=== PATIENT | female | born 1965 | race Caucasian/White ===

== ENCOUNTER 2021-08-29 12:25 | Emergency (ER) | payer MEDICAID, SELFPAY ==
[2021-08-29] VITALS (11 sets, daily range): BP systolic 85–103; BP diastolic 39–78; PULSE 75–101; RESP 6–16; TEMP 36.1; O2SAT 97–100
--- NOTE | ~2021-08-29 | CT_ITS ---
EXAMINATION: CT abdomen pelvis wo con DATE: 08/29/2021 13:55 INDICATION: Ischemic colitis. TECHNIQUE: Computed tomography (CT) of the abdomen and pelvis was performed without intravenous contr ast. Automated exposure control and iterative reconstruction technique were employed. The dose-length product was 589.62 mGy-cm. COMPARISON: CT abdomen and pelvis 01/14/2005 FINDINGS: The visualized portions of the lung bases are clear without pneumonia or pleural effusion. The heart size is normal. No pericardial effusion. There is diffuse hepatic steatosis. There are porter ges of cholecystectomy. The spleen, gallbladder, adrenal glands, and kidneys are normal. There is no urolithiasis. There is diverticulosis of the colon without evidence of diverticulitis. The appendix i s normal. There is a supraumbilical ventral hernia containing fat. There are no pathologically enlarg ed lymph nodes. There is no free intraperitoneal fluid. There is a 13 mm mass of fat in left ovary, c onsistent with a dermoid. There is lumbar levoscoliosis and severe spondylosis. IMPRESSION: 1. No evidence of colitis. 2. Supraumbilical ventral hernia containing fat. 3. 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 Reviewed, dictated and finalized at location A. IRON DIPPER
--- NOTE | 2021-08-29 13:13 | ED.GIBLEED ---
HPI - GI Bleed General Chief complaint: GI Bleed Stated complaint: rectal bleeding, abd pain Time Seen by Provider: 08/29/21 13:13 Source: patient Mode of arrival: ambulatory History of Present Illness HPI Narrative: Patient is 55 years old white female came to the emergency room because of rectal bleeding of the dark red blood over the last 3 days, on average 3 bowel movement a day. Patient also complaining of diffuse abdominal pain, denies any fever, chills, nausea, vomiting. Patient reports a history of rectal bleeding gastritis Crohn's ulcerative colitis. Patient GI doctor and family physician at [facility]. Came to our hospital today for a second opinion. Patient is telling me that at [facility] do not know what i have.. Patient is a smoker, does not have a job, not vaccinated for COVID. Related Data Allergies Allergy/AdvReac Type Severity Reaction Status Date / Time No Known Allergies Allergy Mild Verified 08/29/21 14:18 Review of Systems Review of Systems: CONSTITUTIONAL: Denies fever, chills, or sweats. EYES: Denies visual changes, redness, or discharge. ENT: Denies rhinorrhea, congestion, sore throat, or otalgia. CARDIOVASCULAR: Denies chest pain, palpitations, or edema. RESPIRATORY: Denies cough or dyspnea. GASTROINTESTINAL: Denies abdominal pain, plus rectal bleeding GENITOURINARY: Denies dysuria or hematuria. SKIN: Denies rash or itching. MUSCULOSKELETAL: Denies back pain, joint pain, or myalgia. NEUROLOGIC: Denies headache, numbness, or weakness. PSYCHIATRIC: Denies anxiety or depression. Exam Narrative: General appearance: Well-developed, well-nourished Skin: Normal color Head: Normocephalic, nontraumatic Eyes: Clear conjunctiva ENT: Oropharynx normal, ears normal, nose normal Neck: Supple, nontender Chest and respiratory: Airway patent, no respiratory distress, no accessory muscle use Heart: Regular rate/rhythm Abdomen: Soft, nontender, no organomegaly, quiet bowel sounds, rectal exam showed severe anal tenderness, possible internal hemorrhoids, no blood on the glove, guaiac is negative Vascular: Normal peripheral pulses, normal capillary refill. Musculoskeletal: Normal range of motion, nontender back Neurologic: Alert and oriented ?3, RUG CLEANER HAND is normal as tested, no gross motor deficit Course Vital Signs Vital signs: Vital Signs Temperature 36.1 C L 08/29/21 12:56 Pulse Rate 101 H 08/29/21 12:56 Respiratory Rate 14 08/29/21 12:56 Blood Pressure 92/56 L 08/29/21 12:56 Pulse Oximetry 100 08/29/21 12:56 Temperature 36.1 C L 08/29/21 12:56 Pulse Rate 101 H 08/29/21 12:56 Respiratory Rate 14 08/29/21 12:56 Blood Pressure 92/56 L 08/29/21 12:56 Pulse Oximetry 100 08/29/21 12:56 MDM - GI Bleed MDM Narrative Medical decision making narrative: Work-up and physical examination including rectal exam showed no indication that the patient have GI bleed. Rectal exam is painful, hemorrhoids is my concern with intermittent hemorrhoidal bleed. Patient will be discharged to follow-up with her family physician. Differential Diagnosis Differential diagnosis: Likely hemorrhoids, gastritis, Upper gastrointestinal hemorrhage, Lower gastrointestinal hemorrhage, melena and anal fissure Imaging Data Radiologist's impression: Impressions Abdomen/Pelvis CT 08/29/21 13:57 IMPRESSION: 1. No evidence of colitis. 2. Supraumbilical ventral hernia containing fat. 3. 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 Critical Care Time Critical Care Time Critical Care Time: Yes Total Critical Care Time: 40 Discharge Plan Discharge Clinical Impression: Hemorrhoids Patient Disposition: Home, Self-Care
[2021-08-29] MEDS: SODIUM CHLORIDE 0.9% IV 1,000 ML 999 ML IV CONT (14:10)
[2021-08-29 14:14] LABS: Basophils Percent Auto 0.3 % (0.2-1.2); Eosinophils Absolute Auto 0.1 K/mm3 (0-0.3); Eosinophils Percent Auto 0.7 % (0-4.4); Hematocrit 39.7 % (37.0-47.0); Immature Granulocyte Absolute 0.06 K/mm3 (0.00-0.031); Immature Granulocyte Percent A 0.5 % (0-0.5); Immature Platelet Fraction Pct 14.9 % (0.9-11.2); Lymphocytes Absolute Auto 1.95 K/mm3 (0.9-3.2); Lymphocytes Percent Auto 15.4 % (18.3-44.2); Mean Corpuscular HGB Conc 35.3 g/dl (32-36); Mean Corpuscular Hemoglobin 32.5 pg (26-34); Mean Corpuscular Volume 92.1 fl (80-100); Monocytes Absolute Auto 0.5 K/mm3 (0.1-0.6); Monocytes Percent Auto 4.2 % (2.6-8.5); Neutrophils Percent Auto 78.9 % (45.5-73.1); Platelet Count Result 192 k/mm3 (150-375); Red Blood Count 4.31 M/mm3 (4.2-5.4); White Blood Count 12.7 K/mm3 (4.5-10.0)
== END 2021-08-29 15:22 | disposition home or self-care (01) ==
PROVIDERS: Emergency Provider Emergency Medicine; PCP Internal Medicine
DX: K64.9 Unspecified hemorrhoids (principal)
CPT/HCPCS: 36415; 74176; 85025; 85055; 86850; 86900; 86901; 96360; 99284; J7030

== ENCOUNTER 2025-01-11 16:25 | Emergency (ER) | payer MEDICARE, MEDICAID, SELFPAY ==
--- NOTE | ~2025-01-11 | XR_ITS ---
XR knee RT 3V Ordering provider: Mercedes Chery MD History: . PAIN EDEMA . Comparison: None. FINDINGS: BONES: No acute fracture or dislocation. JOINT SPACES: Normal. Marginal osteophytes in the knee and patella. SOFT TISSUES: Fluid in the suprapatellar bursa with ossification of the quadriceps tendon. IMPRESSION: No acute osseous abnormality right knee. Mild osteoarthritic changes. Reviewed, dictated and finalized at location A.
[2025-01-11 16:25] VITALS: BP 105/73; PULSE 75; RESP 19; TEMP 36.7; O2SAT 98
[2025-01-11] MEDS: HYDROcodone/acetaminophen (*CRX) 5-325 MG TABLET 1 TAB PO (17:15)
--- OUTSIDE RECORDS SUMMARY | 2025-01-11 17:15 | XMS_ITS | Encounter Summary ---
Author Organization [facility] General Sentiment [facility] Ecast [facility] Address [address] [address] Phone Care Team Providers Care Gyroscopic Instrument Tester Name Role Phone Sekou Sheffield MD Primary Care Provider [phone] Encounter Details Date Type Department Care Team (Late st Contact Info) Description 01/10/2025 Orders Only [place] [email or web address] [place] [facility] [address] [facility] [address] [place] [address] Amelia Velazquez [phone] [facility] [address] [place] [address] Essential hypertension (Primary Dx) Social History Tobacco Use Types Packs/Day Years Used Date Smoking Tobacco: Never Assessed Comments Unknown Sex and Gender Information Value Date Recorded Sex Assigned at Not on file Legal Sex Female 4:03 PM EST Gender Identity Not on file Sexual Orientation Not on file documented as of this encounter Plan of Treatment Upcoming Encounters Date Type Department Care Team (Late st Contact Info) Description 02/13/2025 1:00 PM CDT Office Visit [place] [email or web address] [place] [facility] [address] [facility] [address] [place] [phone] Kwesi Whiting DO [address] [facility] 1 [place] [address] Scheduled Orders Name Type Priority Associated Diagnoses Orde r Schedule [facility] Procedures Routine Essential hypertension Expected: 01/10/2025 (Approximate), Expires: 01/10/2026 documented as of this encounter Visit Diagnoses Diagnosis Essential hypertension- Primary documented in this encounter Care Teams Gyroscopic Instrument Tester Relationship Specialty Start Date End Date Sekou Sheffield MD [address] [facility], [address] [place] [address] PCP - General Internal Medicine 07/06/22 documented as of this encounter
--- OUTSIDE RECORDS SUMMARY | 2025-01-11 17:15 | XMS_ITS | Clinical Summary ---
Author Organization [facility] Facility Address [address] [place] [address] Care Team Providers Care Wire Wrapping Machine Operator Name Role Phone Sekou Sheffield MD Primary Care Provider [phone] Medications Semaglutide, 2 MG/DOSE, (Ozempic, 2 MG/DOSE,) 8 MG/3ML solution pen-injector Inject 2 mg under the skin per week 12 mL 1 12/21/2023 Active sertraline (ZOLOFT) 50 MG tablet Take 1 tablet by mouth once daily 90 tablet 01/25/2024 Active potassium chloride (KLOR-CON M20) 20 MEQ CR tablet Take 1 tablet (20 mEq total) by mouth 1 (one) time each day 90 tablet 1 02/22/2024 Active SITagliptin (JANUVIA) 100 MG tablet Take 1 tablet (100 mg total) by mouth 1 (one) time each day in the morning 90 tablet 1 11/07/2024 Active ergocalciferol 1.25 MG (95894 UT) capsule Take 1 capsule (50,000 Units total) by mouth 1 (one) time per week 12 capsule 1 11/07/2024 Active Insulin Glargine, 2 Unit Dial, (Toujeo Max SoloStar) 300 UNIT/ML solution pen-injector Inject 20 Units under the skin every night 3 mL 3 12/11/2024 Active Active Problems Problem Noted Date Diagnosed Date Essential hypertension 01/10/2025 Encounters Date Type Department Care Team Description 01/10/2025 Orders Only [facility], [address] [address] Amelia Velazquez Essential hypertension (Primary Dx) 01/09/2025 Documentation Only [facility] [address] [phone] Kwesi Whiting, DO 12/13/2024 Documentation Only [address] [address] Kwesi Whiting, DO 12/11/2024 Refill [facility], [address] [address] Cleo Figueredo [facility] 11/07/2024 1:30 PM CDT Office Visit [facility] [address] [phone] Kwesi Whiting, DO Chronic kidney disease, stage 4 (severe) (HCC) (Primary Dx); Persistent proteinuria; Proximal renal tubular acidosis; Ischemic cardiomyopathy; Coronary artery disease due to calcified coronary lesion; Simple chronic bronchitis (HCC); Type 2 diabetes mellitus with diabetic chronic kidney disease (HCC); Pure hypercholesterolemia , not otherwise specified; Tobacco use 11/07/2024 Refill [facility], [facility] [address] [phone] Cleo Figueredo [facility] 11/03/2024 Orders Only [address] [address] Kwesi Whiting, DO 10/24/[address] [phone] Kwesi Whiting, DO 10/16/[address] [address] Cleo Figueredo [facility] from Last 3 Months Social History Tobacco Use Types Packs/Day Years Used Date Smoking Tobacco: Never Assessed Comments Unknown Sex and Gender Information Value Date Recorded Sex Assigned at Not on file Legal Sex Female 4:03 PM EST Gender Identity Not on file Sexual Orientation Not on file Last Filed Vital Signs Vital Sign Reading Time Taken Comments Blood Pressure 140/80 11/07/2024 1:59 PM CDT Pulse 68 11/07/2024 1:59 PM CDT Temperature 36.1 C (97 F) 11/07/2024 1:59 PM CDT Respiratory Rate 18 11/07/2024 1:59 PM CDT Oxygen Saturation 97% 11/07/2024 1:59 PM CDT Inhaled Oxygen Concentration - - Weight 83.9 kg (185 lb) 11/07/2024 1:59 PM CDT Height 160 cm (5' 3 ) 12/08/2022 12:10 PM CDT Body Mass Index 32.77 12/08/2022 12:10 PM CDT Plan of Treatment Upcoming Encounters Date Type Department Care Team (Late st Contact Info) Description 02/13/2025 1:00 PM CDT Office Visit [facility], [facility] [address] [facility] [address] [place] [address] Kwesi Whiting DO [address] [facility] 1 [place] [address] Health Maintenance Due Date Last Done Comments Breast Cancer Screening 1966 Hepatitis B Vaccine (1 of 3 - 19+ 3-dose series) 1985 Colorectal Cancer Screening: Annual FOBT 2015 Colorectal Cancer Screening: Colonoscopy 2015 Colorectal Cancer Screening: Sigmoidoscopy 2015 Pneumococcal Vaccine: 50+ Ye ars (2 of 2 - PCV) 07/01/2017 07/01/2016 Diabetes: Ophthalmology Exam 07/30/2022 Diabetes: Pedal Pulse Checked 07/30/2022 Diabetes: Sensory Foot Exam 07/30/2022 Diabetes: Visual Foot Exam 07/30/2022 Diabetes: Hemoglobin A1C 02/03/2025 11/03/2024, 0301/2024 Influenza Vaccine (Season Ended) 2025 06/10/2023, 07/02/2022, 07/18/2021, Additional history exists Pneumococcal Vaccine: Peds ( 0 to 5 Years) and At-Risk Patients (6 to 49 Years) Discontinued 07/01/2016 Procedures Procedure Name Priority Date/Time Associated Diagnosis Comments MAGNESIUM Routine 11/03/2024 1:27 PM FAGOTING MACHINE OPERATOR VITAMIN D 25 HYDROXY Routine 11/03/2024 1:27 PM FAGOTING MACHINE OPERATOR HEMOGLOBIN A1C Routine 11/03/2024 1:27 PM FAGOTING MACHINE OPERATOR CYSTATIN C WITH EGFR Routine 11/03/2024 1:27 PM FAGOTING MACHINE OPERATOR URINE ALBUMIN / CREATININE RATIO Routine 11/03/2024 1:27 PM FAGOTING MACHINE OPERATOR PROTEIN / CREATININE RATIO, URINE Routine 11/03/2024 1:27 PM FAGOTING MACHINE OPERATOR RENAL FUNCTION PANEL Routine 11/03/2024 1:27 PM FAGOTING MACHINE OPERATOR CBC DIFF AMBIGUOUS DEFAULT - DO NOT USE Routine 11/03/2024 1:27 PM FAGOTING MACHINE OPERATOR from Last 3 Months Results * (ABNORMAL) Cystatin C w/GFR (11/03/2024 1:27 PM FAGOTING MACHINE OPERATOR) Cystatin C 2.27(H) 0.67 - 1.14 mg/L [facility] eGFR by Cystatin C 25(L) >59 mL/min/1.7 3 [facility] 11/03/2024 1:27 PM FAGOTING MACHINE OPERATOR 11/02/2024 11:00 PM FAGOTING MACHINE OPERATOR us Kwesi Whiting DO LAB BLOOD ORDERABLES Final R esult [facility] [address] [place] [address] * CBC Diff Ambiguous Default (11/03/2024 1:27 PM FAGOTING MACHINE OPERATOR) WBC 6.9 3.4 - 10.8 x10E3/uL [facility] RBC 4.84 3.77 - 5.28 x10E6/uL [facility] Hemoglobin 14.9 11.1 - 15.9 g/dL [facility] Hematocrit 44.7 34.0 - 46.6 % [facility] MCV 92 79 - 97 fL [facility] MCH 30.8 26.6 - 33.0 pg [facility] MCHC 33.3 31.5 - 35.7 g/dL [facility] RDW 14.2 11.7 - 15.4 % [facility] Platelets 242 150 - 450 x10E3/uL [facility] Neutrophils Relative 68 Not Estab. % [facility] Lymphocytes Relative 22 Not Estab. % [facility] Monocytes 5 Not Estab. % [facility] Eosinophils Relative 4 Not Estab. % [facility] Basophils Relative 1 Not Estab. % [facility] Neutrophils Absolute 4.7 1.4 - 7.0 x10E3/uL [facility] Lymphocytes Absolute 1.5 0.7 - 3.1 x10E3/uL [facility] Monocytes Absolute 0.3 0.1 - 0.9 x10E3/uL [facility] Eosinophils Absolute 0.3 0.0 - 0.4 x10E3/uL [facility] Basophils Absolute 0.1 0.0 - 0.2 x10E3/uL [facility] Immature Granulocytes 0 Not Estab. % [facility] Immature Grans (Absolute) 0.0 0.0 - 0.1 x10E3/uL [facility] Comment: A hand-written panel/profile was received from your office. In accordance with the [facility] Ambiguous Test Code Policy dated February 2003, we have assigned CBC with Differential/Platelet, Test Code #709584 to this request. If this is not the testing you wished to receive on this specimen, please contact the [facility] Technical Services Department to clarify the test order. We appreciate your business. 11/03/2024 1:27 PM FAGOTING MACHINE OPERATOR 11/02/2024 11:00 PM FAGOTING MACHINE OPERATOR Kwesi Whiting DO LAB BLOOD ORDERABLES Final R esult Performing Organization Address [facility] Co de Phone Number [facility] [address] [place] [address] * Protein, Total, Random Urine w/Creatinine (Protein/Creat Ratio) (11/03/2024 1:27 PM FAGOTING MACHINE OPERATOR) Creatinine, Ur 47.3 Not Estab. mg/dL [facility] Protein, Ur 7.2 Not Estab. mg/dL [facility] Urine Protein/Creatin ine Ratio 152 0 - 200 mg/g creat [facility] 11/03/2024 1:27 PM FAGOTING MACHINE OPERATOR 11/02/2024 11:00 PM FAGOTING MACHINE OPERATOR Kwesi Whiting DO LAB URINE ORDERABLES Final R esult Performing Organization Address [facility] Co de Phone Number [facility] [address] [place] [address] * Urine Albumin / Creatinine Ratio (11/03/2024 1:27 PM FAGOTING MACHINE OPERATOR) Albumin, Urine 5.8 Not Estab. ug/mL [facility] Albumin/Creatin ine Ratio 12 0 - 29 mg/g creat [facility] Comment: Normal: 0 - 29 Moderately increased: 30 - 300 Severely increased: >300 11/03/2024 1:27 PM FAGOTING MACHINE OPERATOR 11/02/2024 11:00 PM FAGOTING MACHINE OPERATOR Kwesi Whiting DO LAB URINE ORDERABLES Final R esult Performing Organization Address City/[facility]/ZIP Co de Phone Number [facility] [address] [place] [address] * (ABNORMAL) Vitamin D 25 Hydroxy (11/03/2024 1:27 PM FAGOTING MACHINE OPERATOR) Vitamin D, 25-OH, Total 26.5(L) 30.0 - 100.0 ng/mL [facility] Comment: Vitamin D deficiency has been defined by the [place] of [employer] and an Endocrine Society practice guideline as a level of serum 25-OH vitamin D less than 20 ng/mL (1,2). The Endocrine Society went on to further define vitamin D insufficiency as a level between 21 and 29 ng/mL (2). 1. IOM ([place] of [employer]). 2010. Dietary reference intakes for calcium and D. [place]: The National Academies Press. 2. Josep MF, Mary NC, Power HERNANDEZ, et al. Evaluation, treatment, and prevention of vitamin D deficiency: an Endocrine Society clinical practice guideline. JCEM. 2010; 96(7):1911-30. 11/03/2024 1:27 PM FAGOTING MACHINE OPERATOR 11/02/2024 11:00 PM FAGOTING MACHINE OPERATOR Kwesi Whiting DO LAB BLOOD ORDERABLES Final R esult [facility] [address] [place] [address] * (ABNORMAL) Magnesium (11/03/2024 1:27 PM FAGOTING MACHINE OPERATOR) Magnesium 2.4(H) 1.6 - 2.3 mg/dL [facility] 11/03/2024 1:27 PM FAGOTING MACHINE OPERATOR 11/02/2024 11:00 PM FAGOTING MACHINE OPERATOR Kwesi Whiting DO LAB BLOOD ORDERABLES Final R [facility] Performing Organization Address City/[facility] de Phone Number [facility] [address] [place] [address] * (ABNORMAL) Hemoglobin A1c (11/03/2024 1:27 PM FAGOTING MACHINE OPERATOR) Hemoglobin A1C 8.3(H) 4.8 - 5.6 % [facility] Comment: Prediabetes: 5.7 - 6.4 Diabetes: >6.4 Glycemic control for adults with diabetes: <7.0 11/03/2024 1:27 PM FAGOTING MACHINE OPERATOR 11/02/2024 11:00 PM FAGOTING MACHINE OPERATOR Kwesi Whiting DO LAB BLOOD ORDERABLES Final R esult Performing Organization Address [facility] de Phone Number [facility] [address] [place] [address] * (ABNORMAL) Renal Function Panel (11/03/2024 1:27 PM FAGOTING MACHINE OPERATOR) Glucose 174(H) 70 - 99 mg/dL [facility] BUN 15 6 - 24 mg/dL [facility] Creatinine 1.63(H) 0.57 - 1.00 mg/dL [facility] eGFR CKD-EPI CR 2020 36(L) >59 mL/min/1.7 3 [facility] BUN/Creatinine Ratio 9 9 - 23 [facility] Sodium 139 134 - 144 mmol/L [facility] Potassium 3.8 3.5 - 5.2 mmol/L [facility] Chloride 101 96 - 106 mmol/L [facility] Bicarbonate (CO2) 23 20 - 29 mmol/L [facility] Calcium 9.4 8.7 - 10.2 mg/dL [facility] Phosphorus 3.4 3.0 - 4.3 mg/dL [facility] Albumin 3.9 3.8 - 4.9 g/dL [facility] 11/03/2024 1:27 PM FAGOTING MACHINE OPERATOR 11/02/2024 11:00 PM FAGOTING MACHINE OPERATOR us Kwesi Whiting DO LAB BLOOD ORDERABLES Final R esult [facility] [address] [place] [address] from Last 3 Months Insurance UHC Medicare Medicaid [place] Care Teams Wire Wrapping Machine Operator Relationship Specialty Start Date End Date BahSekou perkins MD [address] [facility], [address] [place] [address] PCP - General Internal Medicine 07/06/22
--- OUTSIDE RECORDS SUMMARY | 2025-01-11 17:16 | XMS_ITS | Data Portability ---
Author Organization [place] [facility] [employer], Main Office Address [address] [place] [address] Care Team Providers Care Clerk Cashier Name Role Phone SEKOU SHEFFIELD Primary Care Provider [phone] SEKOU SHEFFIELD Referring Provider KATHY ATKINS Tree Surgeon MALISSA GALLO Welt Beater BRENNA DORANTES Tow Operator ISAIAH MADDOX Order Processing Clerk KISHA COHN Inspector Of Dredging GALILEO CHEEMA Construction Project Administrator Assessment Encounter Date Assessment Date Assessment LastModified by Organization Details LastModified Time 08/03/2024 08/03/2024 01/11/2023: Gluc 48, BUN 24, Cr 1.67, GFR 32, ALP 134 06/10/2023: A1C 8.5H BUN/Cr./GFR 23/1.73/30, ALP 153 LDL 100 12/16/2023: A1C 8.6H Gluc 193, Cr 1.64, ALP 152 02/17/2024: Dr Gallo Cr 1.64H, GFR 32, Gluc 137 H/H 13.6/41.3 A1C 7.4 03/29/2024: A1C 7.3 Gluc 113, BUN 16/Cr 1.69, GFR 31, ALP 136 LDL 89 45 minutes spent with the patient, lab orders provided, chart updated [email or web address] Not available 08/03/2024 11:24:05 09/14/2024 09/14/2024 This note is dictated and transcribed by [employer]. Transmission Repairer variances may occur. Despite proofreading, typographical errors may occur. Occasional wrong-word or 'lrwab-a-nkex' substitutions may have occurred due to the inherent limitations of voice recording. Read the chart carefully and recognize, using context, where substitutions have occurred. Not available 09/14/2024 09:51:12 09/28/2024 09/28/2024 Assessment: Rhinitis Nicotine smoke: 08/31 ppd 1981-present = 21 pack years Mild ACO Persistent early REM onset Mild OSAHS, AHI = 5 Plan: The following were reviewed and explained to the patient: PFT 01/18/19 FEV1 1.97 L (79%), BD 240 mL = 13% PFT 08/19/22 FEV1 2.06 L (84%) PFT 04/10/24 FEV1 1.79 L (75%), BD 80 mL = 5% Lab data 07/09/[address] multiple [address] allergies Chest CT 07/14/22 20 mm RLL GGO Chest CT 01/11/23 diminished RLL density Chest CT 03/08/24 no abnormality [facility] diagnostic sleep study 01/04/23 sleep onset = 15 minutes, REM onset = 45.5 minutes, AHI = 5, supine AHI = 10, REM AHI = 12 [facility] titration sleep study 02/23/23 sleep onset = 10 minutes, REM onset = 86.5 minutes, ResMed medium AirFit F30 full face mask @ 7 cmH2O Nicotine cessation counseling provided. [place] for quitting include getting ready, getting support and encouragement, learning new skills and behaviors and being prepared to handle slips. Tips for dealing with cravings provided. Prevention of subsequent illnesses from nicotine addiction discussed. Comorbidities include but are not limited to hypertension, cerebrovascular disease, coronary heart disease, congestive heart failure, hyperlipidemia, COPD/asthma, peptic ulcer disease, esophagitis/gastri tis, and osteoporosis. Therapy options offered include: Quitting by total abstinence Receiving nicotine replacement therapy Undergoing hypnosis Filling a bupropion or varenicline prescription Enrolling in Quit For Life program Registering at [email or web address] Making a call to 2-257-YGCA-NOW ( ). A strong, clear, personalized message was given to the patient to quit smoking. The patient was urged to set a quit date. We discussed patient's barriers to quitting and I will be of assistance when patient is ready to quit. I encouraged patient to inform friends and family of plans to quit with a request for support. I encouraged the patient to remove all cigarettes from the environment. We reviewed any previous quit attempts and lessons learned from them. I encouraged total abstinence from smoking and advised the patient that drinking alcohol and/or associating with other smokers are associated with failure or relapse. Patient can enroll in [facility]'s smoking cessation class through Lakesha Lenz RN at . Enrollment is free and classes are held every wednesday of the month from 1:30 pm to 2:30 pm at the conference room next to the cafeteria on the ground floor. The [place] Preventive Services Task Force (USPSTF) recommends annual screening for lung cancer with low-dose computed tomography (LDCT) for adults aged 50 to 80 years who have a 20 pack-year smoking history and currently smoke or have quit within the past 15 years. The [place] [employer] (ACS) similarly recommends screening for individuals aged 50 to 80 years with a 20 pack-year history of smoking. Chest CT one week before return. General information on bronchial asthma was covered. Patient will monitor peak flow daily at a set time and again when symptoms of chest tightness, cough, dyspnea or wheezing occur. Patient will bring peak flow record to subsequent visits. The color of a traffic light will guide the patient's use of asthma medications: (1) Green means Go Zone. Peak flow: above 80% of personal best. Symptoms: Breathing is good, no cough or wheeze present, patient sleeps through the night and can work and play. Plan: Patient will continue the use of preventative medicine. (2) Yellow means Caution Zone. Peak flow: between 50-80% of personal best. Symptoms: Presence of first signs of a cold, exposure to known trigger, mild wheeze, tight chest and coughing especially night. Plan: Patient will add quick-relief medicine to preventative medicine. (3) Red means Danger Zone. Peak flow: below 50% of personal best. Symptoms: Asthma is getting worse quickly and medicine is not helping, breathing is hard and fast, nose opens widely when breathing, ribs showing when breathing, and patient cannot speak in full sentences. Plan: Patient will get help from a physician immediately. Symbicort 160/4.5 mcg is no longer formulary. Continue Breo Ellipta 100/25 mcg 1 inhalation daily. Gargle after use. Continue albuterol HFA as needed. The patient does not know how to accurately administer the inhalers. Today, the patient was shown how to take these medications. The proper technique for delivering these medications was instructed. The patient expressed a clear understanding and demonstrated back how to use these medications. Without the proper technique, the patient will not reap the benefits of these medications as the contents will not reach the lower airways as intended to be. Adherence to therapy is advocated. Nonadherence may lead to treatment failure, further progression of the condition, and other complications. Hospitals admissions are often the result of individuals not taking prescription medications accurately. Alternatively, greater adherence to medication regimens have shown to lower rates of hospitalization and decrease total medical costs in patients with chronic medical conditions. PAP compliance downloaded and interpreted x 20 minutes. Data reviewed and explained to the patient. Average apnea/hypopnea index (AHI) is 0.4. Patient used PAP > 4 hours 89% of the time. PAP is set at 7 cmH2O. PAP will remain at 7 cmH2O. Keep ramp start at 4 cmH2O. Keep ramp duration at 15 minutes. Keep EPR +1 multimedia developer. Keep humidifier level at 4. Keep tube temperature at 70 F. Oxygen supplementation: Patient is benefiting from PAP therapy. Encouraged patient to maintain PAP use more than 70% of the time. Statement of PAP use and benefits will be sent to the home care store. Educated the patient on problems and solutions associated with positive airway pressure (PAP) use. Difficulty tolerating pressure, mask leaks, intolerance of interface, nasal congestion, claustrophobic response, dry mouth, and unintentional mask removal during sleep were covered. Patient experiences nasal congestion. Patient will use nasal saline spray before starting PAP, use heated PAP humidifier, clean/air dry humidifier reservoir daily, use nasal steroid spray, use ipratropium bromide nasal spray if rhinitis/rhinorrhe a is present or obtain an oronasal/oral interface. Provided the patient with a list of local home care stores where positive airway pressure (PAP) units, accoutrement, and services are available. Home care store selection is based on patient's insurance carrier. Patient will setup an appointment with [facility] for supplies and pressure adjustments. A major predictor of success with use of PAP is follow-up with both the respiratory supplier and the treating physician. The download results can show the treating physician information about adherence to treatment, residual AHI while on treatment and presence of large mask leakage. This information is especially helpful if the patient has residual sleepiness despite treatment. General information on sleep disordered breathing, evaluation of sleep disordered breathing, treatment with PAP therapy, and living with PAP therapy were covered. We discussed with the patient the impact of weight on: Sleep disordered breathing Hyperlipidemia DM CAD MIRA CKD Gout We discussed with the patient the benefit of PAP therapy on: Sleep disordered breathing Depression Rhinitis DM MIRA Educated the patient on sleep hygiene measures. Relaxing rituals to rest easy, understanding foods with positive and negative impact on sleep, creating a peaceful sleep environment, timing of exercise, using herbal sleep aids, and practicing sleep-friendly meditation were covered. To determine how much sleep is needed, the patient will assess where she falls on the spectrum, examine what lifestyle factors such as work schedules and stress are affecting the quality and quantity of sleep. In general, adults need 7-9 hours of sleep. Educated the patient regarding foods that promote sleep. These include but are not limited to cherries, bananas, toast, oatmeal, and warm milk. Educated the patient regarding foods and drinks to avoid before bedtime. These include but are not limited to aged cheese, chocolate, spicy foods, tomato-based sauces, soy, ginseng tea and processed meat. Advocated influenza vaccination annually and pneumonia vaccination in 2025. Advocated weight loss through diet and exercise. Patient's ideal body weight according to height and gender is up to 120 lbs. Encouraged patient to adjust caloric intake to maintain/achieve ideal body weight, emphasizing on fruits, vegetables, whole grains, and fat-free or low-fat products. These include lean meats, poultry, fish, beans, eggs, and nuts and foods that are low in saturated fats, trans-fats, cholesterol, salt (sodium), and glycemic index. Stressed the importance of regular exercise up to the patient's capacity limits. In this case, we recommend 20 min daily walking, 2 days a week of resistance training. Patient to monitor BP daily and bring records to PCP for further management. Follow-up: 6 months, February 2025 [email or web address] Not available 09/28/2024 12:23:09 11/16/2024 11/16/2024 01/11/2023: Gluc 48, BUN 24, Cr 1.67, GFR 32, ALP 134 06/10/2023: A1C 8.5H BUN/Cr./GFR 23/1.73/30, ALP 153 LDL 100 12/16/2023: A1C 8.6H Gluc 193, Cr 1.64, ALP 152 02/17/2024: Dr Gallo Cr 1.64H, GFR 32, Gluc 137 H/H 13.6/41.3 A1C 7.4 03/29/2024: A1C 7.3 Gluc 113, BUN 16/Cr 1.69, GFR 31, ALP 136 LDL 89 11/03/2024: Dr Gallo labs from his note Cr 1.63 HGB 14.9 A1C 8.3 45 minutes spent with the patient, lab orders provided, chart updated [email or web address] Not available 11/16/2024 10:20:54 12/14/2024 12/14/2024 This note is dictated and transcribed by [employer] Direct Software. Transmission Repairer variances may occur. Despite proofreading, typographical errors may occur. Occasional wrong-word or 'gzktx-r-clvm' substitutions may have occurred due to the inherent limitations of voice recording. Read the chart carefully and recognize, using context, where substitutions have occurred. Not available 12/14/2024 10:52:21 Plan of Treatment Reminders Order Date Submit Date Provider Last Modified By Organization Details Last Modified Time Details Appointments Establish ed Patient 2024 10:30A M Isaiah Maddox DPM Not available Not available Not available Any 2024 10:30A M Sekou dinh MD Not available Not available Not available Any 2024 10:30A M Kisha Cohn MD Not available Not available Not available Lab vitamin D, 25-hydrox y, total, serum [email or web address] (Lab), [address] [place], [address], 11/16/2024 18:39:10 glycohemo globin, total, blood [email or web address] (Lab), [address] [place], [address], 11/16/2024 18:39:09 microalbu min, urine [address] (Lab), [address] [place], [address], 11/16/2024 18:39:09 lipid panel, serum [address] (Lab), [address] [place], [address], 11/16/2024 18:39:09 CBC w/ auto diff [address] (Lab), [address] [place], [address], 11/16/2024 18:39:09 TSH, serum or plasma [address] (Lab), [address] [place], [address], 11/16/2024 18:39:09 CMP, serum or plasma [address] (Lab), [address] [place], [address], 11/16/2024 18:39:09 lipid panel, serum [address] (Lab), [address] [place], [address], 08/03/2024 11:21:55 CBC w/ auto diff [address] (Lab), [address] [place], [address], 08/03/2024 11:21:55 TSH, serum or plasma [address] (Lab), [address] [place], [address], 01/04/2025 14:06:47 CMP, serum or plasma [address] (Lab), [address] [place], [address], 08/03/2024 11:21:56 vitamin D, 25-hydrox y, total, serum [address] (Lab), [address] [place], [address], 08/03/2024 11:21:56 rapid flu (A+B) [address] [facility], [address] [place], [address], 08/17/2024 09:07:34 rapid strep group A, throat [address] [facility], [address] [place], [address], 08/17/2024 09:07:34 SARS CoV 2 RNA (COVID-19 ), QL, customer greeter-PCR, respirato ry specimen [address] [facility], [address] [place], [address], 08/17/2024 09:07:34 glycohemo globin, total, blood [address] (Lab), [address] [place], [address], 01/04/2025 14:06:47 microalbu min, urine [address] (Lab), [address] [place], [address], 08/03/2024 11:21:55 Referral diabetic ophthalmo logy referral - Please call patient to schedule an appointme nt. Thank you. 2024 025 MITCHELL [facility], [address], [place], [address], 11/16/2024 16:00:55 podiatris t referral - Please call patient to schedule an appointme nt. Thank you. 2024 025 CARLI Maddox DPM, [address] [facility], [address], [place], [address], 11/16/2024 16:22:29 endocrino logy referral - Please call patient to schedule an appointme nt. Thank you. 2024 025 [place], [address] , [place], [address], 11/16/2024 16:45:26 cardiolog ist referral - Please call patient to schedule an appointme nt. Thank you. 2024 025 [place], [address] [address] , [address], [place], [address], 11/16/2024 16:20:33 hepatolog ist referral 2023 024 [email or web address] Irma Bay MD, [address] [facility] [address], [address], [address], 08/03/2024 20:04:41 diabetic ophthalmo logy referral - Please call patient to schedule. 2023 024 [email or web address] [facility], [address], [place], [address], 11/07/2024 09:23:51 podiatris t referral 2023 024 [email or web address] Isaiah Maddox DPM, [address] [facility], [address], [place], [address], 08/03/2024 20:02:59 endocrino logy referral 2023 024 [place], [address], [place], [address], 08/03/2024 20:04:03 Procedures None recorded. Surgeries None recorded. Imaging XR, foot, 3 or more view - pod to read 2024 025 [email or web address] [facility] ([facility]), [address] [place], [address], 01/11/2025 08:21:28 MAMMO, screening , digital, bilateral [facility] [address], [address], [place], [address], 11/16/2024 11:40:43 DEXA, axial skeleton [address] ([facility]), [address] [place], [address], 11/16/2024 11:23:38 LDCT, chest, for lung cancer screening 2024 025 [email or web address] Not available 09/28/2024 12:30:31 XR, foot, 3 or more view 2024 025 [email or web address] [facility] [place], [address] [facility] [address], [place], [address], 09/14/2024 09:53:09 MAMMO, screening , digital, bilateral [address] ([facility] Scheduling), [address] [place], [address], 08/03/2024 19:33:04 DEXA, axial skeleton 2023 024 [email or web address] [facility] ([facility] Scheduling), [address] [place], [address], 08/03/2024 19:31:31 Medication Orders albuterol sulfate HFA 90 mcg/actua tion aerosol inhaler 2024 025 [facility], [address] [place] [address], [address], 09/28/2024 12:24:16 Breo Ellipta 100 mcg-25 mcg/dose powder for inhalatio n 2024 025 [facility], [address] [place] [address], [address], 09/28/2024 12:24:18 Augmentin 875 mg-125 mg tablet [address] [facility], [address] [place] [address], [address], 09/12/2024 18:14:33 Zyrtec 10 mg tablet 2023 024 [facility], [address] [place] [address], [address], 08/03/2024 11:25:32 Flonase Allergy Relief 50 mcg/actua tion nasal spray,elmo pension 2023 024 [place] [address], [address] [place] [address], [address], 08/03/2024 11:25:27 Patient TargetsNo targets recorded. Patient InstructionsNo instructions recorded. Reason for Referral Diabetic Ophthalmology Refer ral for Type 2 diabetes mellitus without complication Please call patient to schedule. Referring Physician: Sekou Sheffield, Internal Medicine, Encounter Date: 08/03/2024 Order Processing Clerk Referral for Type 2 diabetes mellitus without complication Referring Physician: Sekou Sheffield, Internal Medicine, Encounter Date: 08/03/2024 Edm Operator Referral for St eatotic liver disease Referring Physician: Polina Perez Medicine, Encounter Date: 08/03/2024 Endocrinology Referral for T ype 2 diabetes mellitus without complication Referring Physician: Sekou Sheffield Internal Medicine, Encounter Date: 08/03/2024 Diabetic Ophthalmology Refer ral for Type 2 diabetes mellitus without complication Please call patient to schedule an appointment. Thank you. Referring Physician: Sekou Sheffield Internal Medicine, Encounter Date: 11/16/2024 Order Processing Clerk Referral for Type 2 diabetes mellitus without complication Please call patient to schedule an appointment. Thank you. Referring Physician: Sekou Sheffield [facility] Medicine, Encounter Date: 11/16/2024 Endocrinology Referral for T ype 2 diabetes mellitus without complication Please call patient to schedule an appointment. Thank you. Referring Physician: Polina Perez Medicine, Encounter Date: 11/16/2024 Tow Operator Referral for Co ronary arteriosclerosis Please call patient to schedule an appointment. Thank you. Referring Physician: Sekou Sheffield [facility] Medicine, Encounter Date: 11/16/2024 Results Created Date Observation Date Name Description Value Unit Range Abnormal Flag Note LastModifiedBy Organization Detail LastModifiedTime 09/14/19 25 XR, foot, 3 or more view No observ ation record ed. [email or web address] [facility] [place] [address] [facility] [address], [place], [address], 09/14/2024 09:53:07 Result Notes None recorded. Problems Name Problem SNOMED Code Status Onset Date Resolution Date Notes Provider Name and Address Organization Details Recorded Time Mixed anxiety and depressive disorder 820206480 Active 2021 Not Available [facility] 4 05:38:43 ACTH deficiency 847210519 Active 2021 Not Available [facility] 4 05:38:43 Diabetic peripheral neuropathy 030007994 Active 2021 Not Available [facility] 4 05:38:43 Vitamin D-dependent rickets 87151753 Active 2021 Not Available [facility] 4 05:38:43 Coronary arteriosclero sis 27447665 Active 2022 Not Available [facility] 4 05:38:43 Chronic kidney disease 957098659 Active 2022 Not Available [facility] 4 05:38:43 Cervical radiculopathy 39782089 Active 2022 Not Available [facility] 4 05:38:43 Hyperlipidemi a 80007522 Active 2022 Not Available [facility] 4 05:38:43 Mild persistent asthma 179557696 Active 2022 Not Available [facility] 4 05:38:43 Neuropathy 032395587 Active 2022 Not Available [facility] 4 05:38:43 Non-alcoholic fatty liver 718520997 Active 2022 Not Available [facility] 4 05:38:43 Chronic obstructive pulmonary disease 54454335 Active 2023 Sekou meyer MD [address], [address], [place], [address] , [employer] [facility] [employer] 4 23:23:38 Obstructive sleep apnea syndrome 18966164 Active 2023 Sekou meyer MD [address], [address], [place], [address] , [employer] [facility] [facility] 4 23:23:38 Cigarette smoker 92717052 Active 2023 Sekou meyer MD [address], [address], [place], [address] , [facility] [employer] [facility] [facility] 4 23:23:38 Smoker 58961423 Active 2023 Kisha Cohn MD [address], [address], [place], [address] , [place] - [place] [facility] 4 10:32:47 Bunion 361405664 Active 2023 Isaiah Maddox DPM [address], [address], [place], [address] , [employer] [place] [employer] 4 12:35:20 Closed fracture proximal phalanx, toe 323125563 Active 2023 Isaiah Maddox DPM [address], [address], [place], [address] , [employer] [place] [facility] [employer] 4 10:31:48 Dystrophia unguium 88402807 Active 2024 Isaiah Maddox DPM [address], [address], [place], [address] , [employer] - S [employer] 5 09:53:35 Sleep apnea 24323814 Active 2024 Kisha Cohn MD [address], [address], [place], [address] , [employer] - [facility] [facility] [employer] 5 12:14:46 Type 2 diabetes mellitus without complication 702910823 Active 2024 Sekou meyer MD [address], [address], [place], [address] , [place] - S [facility] [facility] [employer] 5 09:20:28 Steatotic liver disease 622550596 Active 2024 Sekou meyer MD [address], [address], [place], [address] , [employer] [place] [facility] 5 09:22:04 Asthma 886777029 Active 2024 Sekou meyer MD [address], [address], [place], [address] , [employer] [place] [facility] 5 10:24:19 Bunion 220942385 Active 2024 Isaiah Maddox DPM [address], [address], [place], [address] , [employer] [facility] [employer] [facility] 5 10:52:17 Diabetes mellitus 51747989 Active 2024 Isaiah Maddox DPM [address], [address], [place], [address] , [facility] [employer] [facility] [employer] 5 10:52:25 Notes:PFT 01/18/19 FEV1 1.97 L (79%), BD 240 mL = 13% PFT 08/19/22 FEV1 2.06 L (84%) PFT 04/10/24 FEV1 1.79 L (75%), BD 80 mL = 5% Medical History: Depression Bilateral tinnitus Bruxism Rhinitis to multiple environmental allergens with postnasal drip IgE 139 IU/mL Eosinophils 220/uL AAT PiMM 159 mg% Mild ACO Persistent early REM onset Obesity with mild OSAHS, AHI = 5, 01/04/23, on CPAP c/o IVRC Hyperlipidemia T2DM with neuropathy/microalbuminuria CAD EF 47% MIRA Hemorrhoids CKD with normocytic anemia ACTH deficiency Vit D deficiency with rickets Thoracic DDD Gout Procedure History: Cholecystectomy 2 coronary artery stents 2020 Problem Notes None recorded. Procedures Surgical History Date Name Laterality Status Provider Name and Address Organization Details Recorded Time 12/15/19 25 Nail Debridement completed Isaiah Maddox DPM [address], [address], [place], [address], [employer] [facility] [employer] 12/14/2024 10:51:36 09/14/19 25 Nail Debridement completed Isaiah Maddox DPM [address], [address], [place], [address], [employer] [facility] [facility] [employer] [facility] 09/14/2024 09:47:55 05/23/20 24 Suture Removal completed Isaiah Maddox DPM [address], [address], [place], [address], [facility] [employer] [facility] [employer] 05/23/2024 10:30:20 04/27/20 24 excision of bunion completed SURI Hernandez [place] [employer] [facility] [employer] [facility] 08/03/2024 10:38:47 03/30/20 24 Medicare Wellness CPT Code, subsequent completed Thang Thomson LPN [place] [employer] [facility] [employer] [facility] 03/29/2024 12:34:39 03/30/20 24 Medicare Wellness CPT Code, Welcome completed Thang Thomson LPN [place] [employer] [facility] [employer] [facility] 03/29/2024 13:24:26 01/18/20 24 Nail Debridement completed Isaiah Maddox DPM [address], [address], [place], [address], [facility] [employer] [facility] [employer] [facility] 01/18/2024 12:33:53 01/18/20 24 Callus Debridement 2-4 completed Isaiah Maddox DPM [address], [address], [place], [address], [facility] [employer] [facility] [employer] [facility] 01/18/2024 12:34:49 12/08/19 24 Egd vol adjmt bariatric balo completed Thang Thomson LPN [place] [employer] [facility] [employer] [facility] 12/16/2023 10:44:57 10/19/19 24 Nail Debridement completed Isaiah Maddox DPM [address], [address], [place], [address], [facility] [employer] [facility] [employer] [facility] 10/21/2023 08:52:38 10/19/19 24 Callus Debridement 2-4 completed Isaiah Maddox DPM [address], [address], [place], [address], [facility] [employer] [facility] [employer] [facility] 10/21/2023 08:52:17 03/18/20 23 Nail Debridement completed Isaiah Maddox DPM [address], [address], [place], [address], [facility] [employer] [facility] [employer] [facility] 03/18/2023 17:33:20 03/18/20 23 Callus Debridement 2-4 completed Isaiah Maddox DPM [address], [address], [place], [address], [facility] [employer] [facility] [employer] [facility] 03/18/2023 17:33:22 01/29/20 23 Medicare Wellness CPT Code, Initial completed Tawana Munson RN [facility] [employer] [facility] 01/28/2023 12:03:18 Cardiac Stent Placement completed Not Available [facility] 10/28/2022 10:42:46 Heart Catheterization completed Not Available [facility] 10/28/2022 10:42:46 Gallbladder Surgery completed Lissy Marsh Jamn [facility] [employer] 03/18/2023 17:37:24 Hysterectomy completed Lissy Maximo [place] [employer] [facility] [employer] 03/18/2023 17:37:31 Imaging Results Imaging Date Name Status LastModified by Organiz ation Details LastModified Time 09/14/2024 XR, foot, 3 or more view completed [email or web address] [facility] [place] [address] [facility] [address], [place], [address], 09/14/2024 09:53:07 Procedure Notes None recorded. Medical Equipment None Reported. Allergies No known drug allergies Medications Name Sig Start Date Stop Date Status Note LastModified by Organization Details LastModified Time sure comfort pen needles 31gx5/16 (8mm) [facility] x [facility] 03/05 completed Not Available Not Available Not Available clever choice comfort ez insulin pe n needles [id number] 31g x 8 mm [facility] 03/26 completed Not Available Not Available Not Available alcohol pads 70 % pads 03/26 completed Not Available Not Available Not Available BD Luer-Lauren Syringe 3 mL 23 x 1 USE DIRECTED 08/19 completed Not Available Not Available Not Available amoxicill in 500 mg capsule TAKE 2 CAPSULES BY MOUTH TWICE DAILY FOR 14 DAYS 03/05 completed Not Available Not Available Not Available furosemid e 40 mg tablet 07/31 completed Not Available Not Available Not Available atorvasta tin 40 mg tablet TK 1T PO QD 07/02 completed ran out of refills --never got refilled again Not Available Not Available Not Available metformin 500 mg tablet 07/31 completed Not Available Not Available Not Available gabapenti n 600 mg tablet TAKE 1 TABLET BY MOUTH THREE TIMES DAILY 03/05 completed Not Available Not Available Not Available OneTouch Ultra Control solution USE TO CALIBRAT E METER 08/19 completed Not Available Not Available Not Available cetirizin e 10 mg tablet TAKE 1 TABLET BY MOUTH ONCE DAILY NEEDED active Not Available Not Available No t Available azithromy jennifer 250 mg tablet TAKE 2 TABLETS BY MOUTH ON DAY 1, AND THEN TAKE 1 TABLET BY MOUTH ONCE A DAY ON DAY 2 THROUGH DAY 5 11/12 completed Not Available Not Available Not Available glyburide 5 mg tablet 07/31 completed Not Available Not Available Not Available clarithro mycin 500 mg tablet TAKE 1 TABLET BY MOUTH TWICE DAILY FOR 14 DAYS 03/05 completed Not Available Not Available Not Available hydrocodo ne 5 mg-acetam inophen 325 mg tablet TAKE 1 TABLET BY MOUTH EVERY 6 HOURS NEEDED FOR PAIN (MODERAT E 4-6 ON SCALE) 11/16 completed Not Available Not Available Not Available sucralfat e 1 gram tablet TK 1T PO TID 10/28 completed Not Available Not Available Not Available glipizide 10 mg tablet TAKE 1 TABLET BY MOUTH TWICE DAILY BEFORE MEAL(S) 07/02 completed ran out of refills- never got refilled Not Available Not Available Not Available prednison e 20 mg tablet 07/31 completed Not Available Not Available Not Available isosorbid e mononitra te ER 30 mg tablet,ex tended release 24 hr TK 1T PO QD 12/11 completed Not Available Not Available Not Available Alcohol Pads USE TO TEST BLOOD GLUCOSE 3 TO 4 TIMES DAILY 03/26 completed Not Available Not Available Not Available sertralin e 100 mg tablet TAKE 1 TABLET BY MOUTH EVERY DAY *NO ALCOHOL OR DRIVING WITH SEDATING MEDICATI ONS* NOTIFY IF ANY CHANGE IN MOOD OR BEHAVIOR active Not Available Not Available No t Available Anucort-H C 25 mg supposito ry INSERT 1 SUPPOSIT ORY RECTALLY TWICE DAILY 12/02 completed Not Available Not Available Not Available metronida zole 500 mg tablet Take 1 tablet twice a day by oral route for 7 days. active No [id number]|2025-01-11 17:16:00|2025-01-11 17:14:00|XMS_ITS|OWEN GARCIA|External Medical Summaries|[id number]|" Continuity of Care Document (C-CDA R2.1) (Encounter date: 12/22/2019 08:30 AM) Created on: January 11, 2025 Naa Barraza : 1965 Sex: Female Author Organization [facility] Address [address] [place] [address] Phone Care Team Providers Care Clerk Cashier Name Role Phone Shaquille Bae MD Unavailable Unavailable Allergies, Adverse Reactions, Alerts Substance Reaction Status Criticality pneumococcal vaccine Active No Info rmation Medications Medication Instructions Dosage Effective Dates (start - stop) Status Comments Voltaren 1 % topical gel apply 4 gram by topical route 4 times every day to the affected area(s) 4 gram - Active prasugrel 10 mg tablet - Active tizanidine 4 mg capsule - Active Xarelto 2.5 mg tablet - Active nitroglycerin 0.4 mg/hr transdermal 24 hour patch - Active metformin 500 mg tablet - Active isosorbide mononitrate ER 60 mg tablet,extended release 24 hr - Active glyburide 2.5 mg tablet - Active atorvastatin 40 mg tablet - Active ProAir HFA 90 mcg/actuation aerosol inhaler - Active Procedures Procedure Date Inj Procedure Sacroilliac Joint w/fluoro scopy Inc Arthrography Inj Procedure Sacroilliac Joint w/fluoro scopy Inc Arthrography Methylprednisolone 40 Mg Office/outpatient visit,new, mod 2019 Knee Xray 3 Views Decadron 1 Mg Inj/Aspirate Mjr Joint/Bursa(Shldr, Hip, Knee, Subacrom Bursa) Office/outpatient visit,est, mod 2019 Inj Procedure Sacroilliac Joint w/fluoro scopy Inc Arthrography Methylprednisolone 40 Mg Lumbar/sacral Foramin Inject Sngl Lvl (Nerve Or Selective Nerve Root Block) Decadron 1 Mg Spine Xray Lumbosacral Bending Views Onl y 2 Or 3 Views Office consultation, moderate-high Sep- Office/outpatient visit,est, mod 2019 Office/outpatient visit,est, mod 2019 Office/outpatient visit,est, mod 2018 Inj/Aspirate Mjr Joint/Bursa(Shldr, Hip, Knee, Subacrom Bursa) UN10 [place] Copies Of Medical Records Office/outpatient visit,est, mod 2018 Office/outpatient visit,est, mod 2018 Office/outpatient visit,est, mod 2017 Office/outpatient visit,est, mod 2017 Office/outpatient visit,est, mod 2017 Postop followup visit Shoulder Xray Complete Min Of 2 Views Ma Postop followup visit Shoulder Arthroscopic Rotator Cuff Repai r Acute Shoulder Arthscpy Debridement Ext Arthroscopy Rotator Cuff Repair 018 PA At Surgery SO, Acromio/clavicular (canvas And Webbi ng Type), Electrocardiogram, tracing only 018 Venpnctr fngr/heel/ear stick routne Metabolic panel, basic Shoulder Xray Complete Min Of 2 Views Office/outpatient visit,new, mod 2017 Advance Directives Directive Yes / No Effective Date File Name No Information Encounters Encounter Description Practice Location Reason(s) For Visit Diagnoses Date Provider Providers Copied on Encounter [facility], [address], [place], [id number], [place] tel:[phone] OI Procedure Room Other chronic pain 0 Catalino Corbin. [address] [place], [place], [id number] , [place]. tel:[phone] Referring Provider: Chan Clark, [address] [place], [address] . tel:[phone] Office/outpa tient visit,new, [facility], [address] [place] [address], [id number], [place] tel:[phone] SOA PA knee (chief complaint) Patellofemoral arthritis Apr-0 7-202 0 Luis Gonzales. [address] [place] [address], [id number] , [place]. [phone] Office/outpa tient visit,est, [facility], [address] [place] [address], [id number], tel:[phone] SOA PA lumbar spine (chief complaint) Chronic right SI joint painLumbar radiculopathyRigh t anterior knee painOther chronic pain Apr-0 3-202 0 Paramjit Ca. [address] [place] [address], [id number] , [place]. [phone] [facility], [address] [place] [address], [id number], tel:[phone] [facility] Procedure Room Other chronic pain Mar-2 0-202 0 Catalino Fleming. [address], [place], [id number] , [place]. tel:[phone] Referring Provider: Bryce Alfaro, [address], [place], [address]. tel:[phone] [facility], [address] [place] [address], [id number], [place] tel:[phone] [facility] Procedure Room Other chronic pain Mar-0 6-202 0 Catalino Shaquille. [address], [place], [id number] , [place]. tel:[phone] Referring Provider: Bryce Alfaro, [address], [place], [address]. tel:[phone] Office consultation , moderate-hig h [facility], [address] [place] [address], [id number], tel:[phone] [facility] PA lumbar spine (chief complaint) Low back painLumbar radiculopathyLumb ar spondylosisChroni c right SI joint painOther chronic pain 2 0 Paramjit Meshcrys. [address] [place] [address], [id number] , . tel:[phone] Referring Provider: Bryce Alfaro, [address], [place], [address]. tel:[phone] Office/outpa tient visit,est, [facility], [address] [place] [address], [id number], tel:[phone] [facility] shoulder (chief complaint) Bicipital tendinitis, right shoulderImpingeme nt syndrome of right shoulderPain in right shoulderStrain of musc/tend the rotator cuff of right shoulder, subs Sep- 0-202 0 Tyler Garner. [address] [place] [address], [id number] , . tel:[phone] Office/outpa tient visit,est, [facility], [address] [place] [address], [id number], tel:[phone] [facility] shoulder (chief complaint) Bicipital tendinitis, right shoulderImpingeme nt syndrome of right shoulderPain in right shoulderStrain of musc/tend the rotator cuff of right shoulder, subsOther shoulder lesions, right shoulder 0 Tyler Garner. [address] [place] [address], [id number] , . tel:[phone] Office/outpa tient visit,est, [facility], [address] [place] [address], [id number], tel:[phone] [facility] shoulder (chief complaint) Tendinitis of right rotator cuffPain in right shoulder 9 Tyler Garner. [address] [place] [address], [id number] , . tel:[phone] [facility], [address] [place] [address], [id number], tel:[phone] [facility] No Information Tyler Garner. [address], [place], [id number] , . tel:[phone] Office/outpa tient visit,est, [facility], [address] [place] [address], [id number], tel:[phone] [facility] shoulder (chief complaint) Strain of musc/tend the rotator cuff of right shoulder, subsPain in right shoulder 9 Tyler Garner. [address], [place], [id number] , . tel: [phone] Office/outpa tient visit,est, [facility], [address], [place], [id number], tel:[phone] [facility] shoulder (chief complaint) Bicipital tendinitis, right shoulderImpingeme nt syndrome of right shoulderStrain of musc/tend the rotator cuff of right shoulder, subs Shay Flores. [address], [place], [id number] , . tel:[phone] Office/outpa tient visit,est, [facility], [address] [place] [address], [id number], tel:[phone] [facility] shoulder (chief complaint) Bicipital tendinitis, right shoulderImpingeme nt syndrome of right shoulderPain in right shoulderStrain of musc/tend the rotator cuff of right shoulder, subs 8 Dayjanet Flores. [address], [place], [id number] , . tel:[phone] Office/outpa tient visit,est, [facility], [address] [place] [address], [id number], tel:[phone] [facility] shoulder (chief complaint) Bicipital tendinitis, right shoulderImpingeme nt syndrome of right shoulderStrain of musc/tend the rotator cuff of right shoulder, subsPain in right shoulder 8 Day Mark. [address], [place], [id number] , . tel:[phone] Office/outpa tient visit,est, mod [facility], [address] [place] [address], [id number], tel:[phone] [facility] shoulder (chief complaint) Bicipital tendinitis, right shoulderImpingeme nt syndrome of right shoulderPain in right shoulderStrain of musc/tend the rotator cuff of right shoulder, subs 8 Shay Flores. [address], [place], [id number] , [place]. [phone] [facility], [address] [place] [address], [id number], tel:[phone] [facility] shoulder (chief complaint) Bicipital tendinitis, right shoulderImpingeme nt syndrome of right shoulderPain in right shoulderStrain of musc/tend the rotator cuff of right shoulder, subs December- 8 Tyler Garner. [address], [place], [id number] , [place]. tel:[phone] [facility], [address] [place] [address], [id number], tel:[phone] [facility] shoulder (chief complaint) Traumatic complete tear of right rotator cuff, subsequent encounterBicipita l tendinitis, right shoulderImpingeme nt syndrome of right shoulderPain in right shoulder 8 Shay Flores. [address], [place], [id number] , [place]. tel:[phone] [facility], [address] [place] [address], [id number], tel:[phone] [facility] Traumatic complete tear of right rotator cuff, ini 8 Tyler Garner. [address] [place] [id number] , . tel:[phone] Referring Provider: Bryce Alfaro, [address], [place], [address]. tel:[phone] [facility], [address] [place] [address], [id number], tel:[phone] [facility] No Information 8 Tyler Pascual. [address] [place] [address], [id number] , . tel: [phone] Referring Provider: Pascual Salinas, [address] [place] [address], [id number] . tel:[phone] [facility], [address] [place] [address], [id number], tel:[phone] [facility] No Information 8 Tyler Pascual. [address] [place] [address], [id number] , . tel: [phone] Referring Provider: Pascual Salinas, [address] [place] [address], [id number] . tel:[phone] [facility], [address] [place] [address], [id number], tel:[phone] [facility] No Information 8 Tyler Garner. [address] [place] [address], [id number] , [place]. tel: [phone] Referring Provider: Pascual Salinas, [address] [place] [address], [id number] . tel:[phone] [facility], [address] [place] [address], [id number], tel:[phone] [facility] No Information 8 Tyler Garner. [address] [place] [address], [id number] , [place]. tel: [phone] Referring Provider: Yakelin Vega, [address] [facility], [place], [address] . tel:[phone] [facility], [address] [place] [address], [id number], tel:[phone] [facility] Traumatic complete tear of right rotator cuff, iniImpingement syndrome of right shoulderBiceps tendinitis of right upper extremity 8 Tyler Garner. [address], [place], [id number] , . tel:[phone] Referring Provider: Bryce Alfaro, [address], [place], [address]. tel:[phone] Office/outpa tient visit,[facility], [address], [place], [id number], tel:[phone] SOA PA right shoulder (chief complaint) Pain in right shoulderImpingeme nt syndrome of right shoulderBiceps tendinitis of right upper extremityTraumati c complete tear of right rotator cuff, initial encounter 8 Shay Flores. [address], [place], [id number] , . tel:[phone] Family History Family Member Type Diagnosis Age At Onset Problem (finding) Family history of Cance r, unknown Problem (finding) Family history of Diabe mattie mellitus Problem (finding) Family history of Heart disease Payers Payer name Insurance type Covered constitution party ID Manuel matos(s) [employer] [id number] Social History Type Description Quantity Date Captured Comments Alcohol Use Details Unknown Caffeine Use Details Unknown Tobacco Use Status Smoking Status No Information Sex Female Vital Signs Date / Time: Height Weight BMI Pulse Rate Blood Pressure Temperature Respiratory Rate Body Surface Area Head Circumference Head Circ. Percentile Wt./Farhat. Percentile BMI percentile Pulse Ox Inhaled Ox 8:42 AM 63.00 in 99.337 kg (219.00 lbs) 38.7 9 kg/m eter (2) 70 /min 125/75 mm[Hg] 20 /min 2.10 meter(2) 99 % Chief Complaint And Reason For Visit No Information Reason For Referral Reason For Referral No Information Plan Of Treatment Date Type Action Status Goal Tobacco cessation counseling completed Goal Tobacco cessation counseling completed Goal Tobacco cessation counseling completed Goal Tobacco cessation counseling completed Goal Tobacco cessation counseling completed Goal Tobacco cessation counseling completed Goal Tobacco cessation counseling completed Goal Tobacco cessation counseling completed Referral Ordered: Christian Aguilar MD -Allopathic & Osteopathic Physicians : Orthopaedic Surgery (related to Right anterior knee pain) ordered Referral Ordered: Shaquille Bae MD -Allopathic & Osteopathic Physicians : Physical Medicine & Rehabilitation (related to Chronic right SI joint pain) ordered Referral Referred To: Christian Aguilar MD [address] [place] [address], [id number] [id number] Ordered: Referrals: Allopathic & Osteopathic Physicians : Orthopaedic Surgery. Christian Aguilar MD. Consult ordered Referral Referred To: Shaquille Bae MD [address], [place], [phone] Ordered: Referrals: Allopathic & Osteopathic Physicians : Physical Medicine & Rehabilitation. Shaquille Bae MD ordered Referral Ordered: Shaquille Bae MD -[facility]opathic & Osteopathic Physicians : Physical Medicine & Rehabilitation (related to Lumbar radiculopathy) ordered Referral Referred To: Sahquille Bae MD [address], [place], [phone] Ordered: Referrals: Allopathic & Osteopathic Physicians : Physical Medicine & Rehabilitation. Shaquille Bae MD. Evaluate and treat ordered Future Order: Radiology Order Kn ee Xray 3 Views ([id number]), Ordered on: Ordered Future Order: Radiology Order Sp ine Xray Lumbosacral Bending Views Only 2 Or 3 Views ([id number]), Ordered on: Ordered Future Order: Radiology Order MR I Upper Ext Any Joint W/O Contrast ([id number]), Appointment on: Ordered Future Order: Radiology Order Sh oulder Xray Complete Min Of 2 Views ([id number]), Ordered on: Ordered History Of Present Illness Encounter Date Complaint History Of Prese nt Illness knee lumbar spine Ms Barraza is a 54 year old female who complains of lumbar spine. She presents with pain. She states that the symptoms have been chronic non-traumatic. The symptoms occur constantly with intermittent worsening. The problem is worse. Currently the patient states that the symptoms are severe. The pain is described as aching, discomforting and throbbing. The patient is experiencing pain in the following location: lower back. The symptoms are aggravated by daily activities, extension, flexion and walking. Naa states that the symptoms are relieved by lying down, rest and sitting. lumbar spine Ms Barraza is a 54 year old female who complains of lumbar spine. She presents with pain. She states that the symptoms have been chronic non-traumatic. The symptoms occur constantly with intermittent worsening. The problem is worse. Currently the patient states that the symptoms are severe. The pain is described as aching, discomforting and throbbing. The patient is experiencing pain in the following location: lower back. She rates her worst pain as 7/10. The symptoms are aggravated by daily activities and standing. Naa states that the symptoms are relieved by lying down, rest and sitting. In addition to lumbar spine the patient is also experiencing swelling, numbness. The patient has had a previous MRI and x-ray. shoulder shoulder shoulder shoulder shoulder shoulder shoulder shoulder shoulder shoulder right shoulder Functional Status Date Functional Assessmen t No Information Instructions Date Instruction Additional Infor mation No Information Assessments Type Assessment Date No Information Patient Care Teams Name Effective Dates (start - stop) Status Members No Information "
--- OUTSIDE RECORDS SUMMARY | 2025-01-11 17:16 | XMS_ITS | Encounter Summary ---
Author Organization [facility] Rock[employer]elt [facility] fr[employer]it [facility] Address [address] [facility] [place] [address] Phone Care Team Providers Care Surg Tech Name Role Phone Sekou Sheffield MD Primary Care Provider [phone] Encounter Details Date Type Department Care Team (Late st Contact Info) Description 01/09/2025 Documentation Only [employer] [facility] [address] [facility] [address] [place] [address] Kwesi Whiting DO [address] [facility] [place] [address] Social History Tobacco Use Types Packs/Day Years [...] Description 02/13/2025 1:00 PM CDT Office Visit [employer] [facility] [address] [facility] [address] [place] [phone] Kwesi Whiting DO [address] [facility] 1 [place] [address] documented as of this encounter Visit Diagnoses Not on filedocumented in this encounter Care Teams Surg Tech Relationship Specialty Start Date End Date Sekou Sheffield MD [address] [place] [address] PCP - General Internal Medicine 07/06/22 documented as of this encounter
--- OUTSIDE RECORDS SUMMARY | 2025-01-11 17:16 | XMS_ITS | Encounter Summary ---
Author Organization [facility] [employer] [facility] , [facility] Address [address] [facility] [place] [address] Phone Care Team Providers Care Seafood Harvester Name Role Phone Sekou Sheffield MD Primary Care Provider [phone] Reason for Visit * Reason Comments Med Refill Encounter Details Date Type Department Care Team (Late st Contact Info) Description 11/08/2023 Refill [facility] [employer] [facility], [facility] [address] [facility] [place] [address] Kwesi Whiting DO [address] [facility] [address] [place] [address] Social History Tobacco Use Types [...] Description 02/13/2025 1:00 PM CDT Office Visit [facility] [employer] [facility], [facility] [address] [facility] [address] [place] [address] Kwesi Whiting DO [address] [facility] [address] [place] [address] documented as of this encounter Visit Diagnoses Not on filedocumented in this encounter Care Teams Seafood Harvester Relationship Specialty Start Date End Date Sekou Sheffield MD [address] [facility], [address] [place] [id number] PCP - General Internal Medicine 07/06/22 documented as of this encounter
--- OUTSIDE RECORDS SUMMARY | 2025-01-11 17:16 | XMS_ITS | Clinical Summary ---
Author Organization [facility] Lilia Patino Address [address] [place] [address] Care Team Providers Care Organizational Effectiveness Director Name Role Phone Sekou Sheffield MD Primary Care Provider Allergies Active Allergy Reactions Criticality Noted Date Comments Pneumococcal Vaccine Unknown 04/26/2018 Medications albuterol HFA 90 mcg inhaler Take 2 Puffs by inhalation every 6 hours as needed for Shortness of Breath. Active umeclidinium-vi lanteroL (Anoro Ellipta) 62.5-25 mcg/actuation Disk with Device Take 1 Puff by inhalation daily. Active atorvastatin (LIPITOR) 40 mg tablet Take 40 mg by mouth daily with supper. Active SODIUM CHLORIDE ORAL Take 20 mg by mouth daily. Active sertraline (ZOLOFT) 25 mg tablet Take 25 mg by mouth daily. Active potassium chloride (KLOR-CON) 20 mEq Extended Release tablet Take 20 mEq by mouth daily. Active calcitRIOL (ROCALTROL) 0.25 mcg capsule Take 0.25 mcg by mouth daily. Active SITagliptin (JANUVIA) 50 mg Tablet Take 50 mg by mouth daily with breakfast. Active ERGOCALCIFEROL, VITAMIN D2, ORAL Take by mouth. Activ e sertraline (ZOLOFT) 25 mg tablet Take 25 mg by mouth daily. Active gabapentin (NEURONTIN) 600 mg tablet Take 600 mg by mouth 3 times daily. 2 Active rosuvastatin (CRESTOR) 10 mg tablet 2 Active cyanocobalamin (VITAMIN B-12) 1,000 mcg/mL SolutionIndicat ions:Vitamin B12 deficiency (non anemic) Inject 1 mL (1,000 mcg) by intramuscular injection every 7 days. 10 mL 1 2 Active dapagliflozin propanediol (Farxiga) 10 mg Tablet Take 10 mg by mouth daily. 4 Active clopidogreL (PLAVIX) 75 mg Tablet Take 75 mg by mouth daily. 2 Active insulin glargine U-300 conc (Toujeo SoloStar U-300 Insulin) 300 unit/mL pen syringe Inject 20 mg by subcutaneous injection daily at bedtime. 4 Active semaglutide (Ozempic) 2 mg/dose (8 mg/3 mL) Pen Injector Inject 2 mg by subcutaneous injection every 7 days. 4 Active sodium bicarbonate 650 mg tablet Take 650 mg by mouth daily. 3 Active Active Problems Problem Noted Date Diagnosed Date Vitamin B12 deficiency (non anemic) 12/18/2021 Macrocytic anemia 12/04/2021 Abnormal weight loss 12/04/2021 History of cervical cancer 12/04/2021 Encounters Date Type Department Care Team Description 01/02/2025 External Device Data STL ABSTRACTION Provider, Abstract 11/15/2024 External Device Data ST[facility] ABSTRACTION Provider, Abstract 11/07/2024 External Device Data ST[facility] ABSTRACTION Provider, Abstract 11/07/2024 External Device Data STL ABSTRACTION Provider, Abstract 11/04/2024 External Device Data STL ABSTRACTION Provider, Abstract 11/03/2024 External Device Data STL ABSTRACTION Provider, Abstract 11/01/2024 External Device Data STL ABSTRACTION Provider, Abstract 10/18/2024 External Device Data STL ABSTRACTION Provider, Abstract from Last 3 Months Immunizations Immunization Administration Dates Next Due Influenza Seasonal Unspecified Formulation IM Family History Medical History Relation Name Comments Cancer Father Diabetes Father Heart Disease Father Cancer Mother Diabetes Mother Heart Disease Mother Relation Name Status Comments Daughter 1 Alive Daughter 2 Alive Father Mother Alive Sister 1 Alive Sister 2 Alive Social History Tobacco Use Types Packs/Day Years Used Date Smoking Tobacco: Every Day Cigarettes 0.3 52.4 Started: 1971 Smokeless Tobacco: Never Tobacco Cessation:Ready to Q uit: Not Asked; Counseling Given: Not Answered Alcohol Use Standard Drinks/Week Comments Never 0 (1 standard drink = 0.6 oz pur e alcohol) Comments No Sex and Gender Information Value Date Recorded Sex Assigned at Not on file Legal Sex Female 9:29 AM CDT Gender Identity Not on file Sexual Orientation Not on file Last Filed Vital Signs Vital Sign Reading Time Taken Comments Blood Pressure 122/80 01/25/2024 10:25 AM CDT Pulse 84 01/25/2024 10:25 AM CDT Temperature 36.3 C (97.4 F) 01/25/2024 10:25 AM CDT Respiratory Rate 14 01/25/2024 10:25 AM CDT Oxygen Saturation 95% 01/25/2024 10:25 AM CDT Inhaled Oxygen Concentration - - Weight 85.7 kg (189 lb) 01/25/2024 10:25 AM CDT Height 160 cm (5' 3 ) 01/25/2024 10:25 AM CDT Body Mass Index 33.48 01/25/2024 10:25 AM CDT Plan of Treatment Upcoming Encounters Date Type Department Care Team (Late st Contact Info) Description 01/24/2025 10:00 AM CDT Office Visit [facility] [place] [address] [facility] [address] [place] [address] Deep Roblero MD [address] [facility] [address] [place] [address] Health Maintenance Due Date Last Done Comments DIABETES ANNUAL FOOT EXAM 1984 DIABETES ANNUAL RETINAL EXAM 1984 DIABETES MICROALBUMIN ANNUAL SCREEN 1984 LDL CHOLESTEROL ANNUAL 1984 DTAP/TDAP/TD VACCINES (1 - Tdap) 1985 HEPATITIS B VACCINES (1 of 3 - 19+ 3-dose series) 1985 HPV/Cotest (21-29) 1987 CERVICAL CANCER SCREENING 1996 HPV/Cotest (30-65) 1996 PAP SMEAR 1996 COLORECTAL SCREENING 2011 Colorectal Cancer Screening 2011 FIT-DNA Q 3 years 2011 FIT/FOBT Q 1 year 2011 Flex Sig/CT Colonography Q 5 years 2011 ZOSTER VACCINE (1 of 2) 2016 BREAST CANCER SCREENING 10/28/2022 10/28/2021 INFLUENZA VACCINE (#1) 2024 3, 07/02/2022, 07/18/2021, Additional history exists DIABETES HBA1C Q 6 MONTHS 05/05/2024 11/03/2023 Medical Devices Implanted Type Area Application Support Lead Device Identifier Shelf Expiration Date Model / Serial / Lot Angio-Seal Vip Closure Dev [id number] - [id number] Implanted:Qt y: 1 on 08/07/2020 by Yoshi Kovacs MD at [facility] Closure Device N/A: Groin [facility] [employer] 05/29/2021 [id number] / / [id number] Mesh Mesh Promus-2017 Implanted:Qt y: 1 on 04/27/2018 by Yoshi Kovacs MD Stent Coronary [employer] [place] [id number] 03/30/2019 / / [id number] Description: RCA STATES ANOTHER STENT IN 2019 Procedures Procedure Name Priority Date/Time Associated Diagnosis Comments MAMMO SCREENING BILAT Routine 10/28/2021 from Last 3 Months or Most Recently Relevant to Health Maintenance Results * MAMMO SCREENING BILAT (10/28/2021) Anatomical Region Laterality Modality Breast Bilateral Mammography us Abstract Provider MAMMO ORDERABLES Final Result from Last 3 Months or Most Recently Relevant to Health Maintenance Insurance [place] [address] MEDICAID [place] Member Subscriber Plan / Payer (Ef fective 2024-Present) Name:Grace Barrazahryn Misbah Relation to Subscriber:Self Name:Naa Barraza Payer ID:Not on file Group ID:Not on file Type:Medicaid Address: [address] [id number] [place] [address] [facility] DUAL COMPLETE PPO [facility] [id number] Advance Directives For more information, please contact: [phone] * Full Code (Latest Code Status on File) Date Activated Date Inactivated Comments 08/07/2020 6:20 AM 08/07/2020 2:35 PM * Full Code Date Activated Date Inactivated Comments 12/20/2019 6:19 AM 12/20/2019 1:25 PM * Full Code Date Activated Date Inactivated Comments 04/27/2018 11:33 AM 04/27/2018 9:12 PM Care Teams Organizational Effectiveness Director Relationship Specialty Start Date End Date Sekou Sheffield MD PCP - General Internal Medicine 12/04/21
--- OUTSIDE RECORDS SUMMARY | 2025-01-11 17:16 | XMS_ITS | Encounter Summary ---
Author Organization [facility] [employer] [facility] Address [address] [place] [address] Phone Care Team Providers Care Concrete Pipe Plant Supervisor Name Role Phone Sekou Sheffield MD Primary Care Provider [phone] Reason for Visit * Reason Onset Date Comments Med Refill 12/11/2024 Encounter Details Date Type Department Care Team (Late st Contact Info) Description 12/11/2024 Refill [facility] [address] [facility] 1 [place] [address] Cleo Figueredo CMA [address] [facility] 1 [place] [address] Social History Tobacco Use Types [...] Description 02/13/2025 1:00 PM CDT Office Visit [facility] [employer] [facility] [address] [facility] [address] [place] [address] Kwesi Whiting DO [address] [facility] 1 [place] [address] documented as of this encounter Visit Diagnoses Not on filedocumented in this encounter Care Teams Concrete Pipe Plant Supervisor Relationship Specialty Start Date End Date Sekou Sheffield MD [address] [facility], [address] [place] [address] PCP - General Internal Medicine 07/06/22 documented as of this encounter
--- OUTSIDE RECORDS SUMMARY | 2025-01-11 17:16 | XMS_ITS | Continuity of Care Document ---
Author Organization [facility] Address [address] [place] [address] [address] [place] [address] Phone Care Team Providers Care Wax Pattern Assembler Name Role Phone Kaba OD, Bertin Unavailable Unavailable Advance Directives Directive Yes / No Effective Date File Name No Information Encounters Encounter Description Practice Location Reason(s) For Visit Diagnoses Date Provider Providers Copied on Encounter [facility], [address] [place] [address] [address], [place], [place], [id number], [place] tel:[phone] [facility] [place] No Information 0 2-200 2 Kaba OD Bertin. [address] [place] , [address], [place], [address], [place]. tel:[phone] Family History Family Member Type Diagnosis Age At Onset No Information Payers Payer name Insurance type Covered green party ID Authoriza tion(s) No Information Social History Type Description Quantity Date Captured Comments Sex Female Smoking Status No Information Chief Complaint And Reason For Visit No Information Reason For Referral Reason For Referral No Information History Of Present Illness Encounter Date Complaint History Of Prese nt Illness No Information Functional Status Date Functional Assessmen t No Information Instructions Date Instruction Additional Infor mation No Information Assessments Type Assessment Date No Information Patient Care Teams Name Effective Dates (start - stop) Status Members No Information
--- OUTSIDE RECORDS SUMMARY | 2025-01-11 17:16 | XMS_ITS | Clinical Summary ---
Author Organization [facility] Address [address] [facility] [place] [address] Care Team Providers Care Alloy Weigher Name Role Phone Sekou Sheffield MD Primary Care Provider Source Comments [facility],non-owned Affiliates and Associated Physician Practices is amultiple site organization consisting of ambulatory clinics and hospital sitesin [place], [place], [place] and [place]. This disclosure is being madepursuant to the Care Everywhere program and may not contain all information available regarding this patient. Last updated 18.[facility] Allergies Active Allergy Reactions Criticality Noted Date Comments Pneumococcal Polysaccharides Conjugated Vaccine Rash Medium 01/27/2024 Medications * Be aware that medications may not be up to date on this document. Alwaysverify current medications with the patient. calcitriol (Rocaltrol) 0.25 MCG capsule Take 1 (one) capsule by mouth once daily Active clopidogrel (plaVIX) 75 MG tablet Take 1 (one) tablet by mouth once daily 09/03/19 24 Active Farxiga 10 MG tablet Take 1 (one) tablet by mouth once daily 09/03/19 24 Active gabapentin (Neurontin) 100 MG capsule Take 2 (two) capsules by mouth 3 times daily 02/06/20 23 Active potassium chloride ER (Klor-Con M) 20 MEQ tablet Take 1 (one) tablet by mouth 2 times daily with morning and evening meal Active rosuvastatin (Crestor) 40 MG tablet Take 1 (one) tablet by mouth once daily 09/10/19 24 Active ergocalciferol (Drisdol) 1.25 MG (10695 UT) capsule Take 1 (one) capsule by mouth 03/16/20 23 Active sertraline (Zoloft) 50 MG tablet Take 1 (one) tablet by mouth once daily 07/20/20 23 Active sodium bicarbonate 650 MG tablet Take 1 (one) tablet by mouth once daily 07/20/20 23 Active albuterol HFA (Proventil; Ventolin; Proair) 108 (90 Base) MCG/ACT inhaler Inhale 2 (two) puffs by mouth 4 times daily as needed 02/26/20 22 Active fluticasone-lilia anterol (Breo Ellipta) 100-25 MCG/ACT inhaler Inhale 1 (one) puff by mouth once daily Active Insulin Glargine, 1 Unit Dial, (Tourubén SoloStar) pen Inject 3 (three) Units subcutaneously every evening Active pantoprazole EC (Protonix) 40 MG tabletIndicatio ns:Helicobacter positive gastritis Take 1 (one) tablet by mouth 2 times daily for 14 days IT IS IMPORTANT THAT YOU SEPARATE THIS MEDICATION FROM YOUR PLAVIX (HEART MEDICINE) AT LEAST 4 HOURS 28 tablet 12/22/19 24 Active Semaglutide, 2 MG/DOSE, (Ozempic, 2 MG/DOSE,) 8 MG/3ML penIndications: Type 2 diabetes mellitus with other specified complication, unspecified whether prison insulin use (HCC) INJECT 2 MG SUBCUTANEOUSLY ONCE A WEEK 3 mL 2 04/14/20 24 Active Active Problems Problem Noted Date Diagnosed Date Class 2 severe obesity with serious comorbidity and body mass index (BMI) of 35.0 to 35.9 in adult 09/23/2023 Type 2 diabetes mellitus with other specified co mplication 09/23/2023 Metabolic syndrome 09/23/2023 Social History Tobacco Use Types Packs/Day Years Used Date Smoking Tobacco: Every Day Cigarettes Smokeless Tobacco: Never Tobacco Cessation:Ready to Q uit: Not Asked; Counseling Given: Not Answered Alcohol Use Standard Drinks/Week Comments Yes 0 (1 standard drink = 0.6 oz pur e alcohol) occassional Comments Unknown Sex and Gender Information Value Date Recorded Sex Assigned at Not on file Legal Sex Female 1:59 PM CDT Gender Identity Not on file Sexual Orientation Not on file Last Filed Vital Signs Vital Sign Reading Time Taken Comments Blood Pressure 104/72 01/27/2024 10:08 AM CDT Pulse 72 01/27/2024 10:08 AM CDT Temperature 36.7 C (98 F) 01/27/2024 10:08 AM CDT Respiratory Rate 17 01/27/2024 10:08 AM CDT Oxygen Saturation 99% 01/27/2024 10:08 AM CDT Inhaled Oxygen Concentration - - Weight 86.3 kg (190 lb 3.2 oz) 01/27/2024 10:08 AM CDT Height 160 cm (5' 3 ) 01/27/2024 10:08 AM CDT Body Mass Index 33.69 01/27/2024 10:08 AM CDT Plan of Treatment Health Maintenance Due Date Last Done Comments COLOGUARD (AGES 45-75) - COLON CA SCREENING 1966 COLON MONITORING 1966 COLONOSCOPY - COLON CA SCREENING 1966 CT COLONOGRAPHY - COLON CA SCREENING 1966 Colorectal Cancer Screening 1966 FIT - COLON CA SCREENING 1966 FLEX SIG - COLON CA SCREENING 1966 PAP SMEAR 1966 HIV SCREENING 1981 DTAP/TDAP/TD VACCINES (1 - Tdap) 1985 HEPATITIS B VACCINE (1 of 3 - 19+ 3-dose series) 1985 ZOSTER VACCINE (1 of 2) 2016 DIABETES RETINOPATHY SCREENING 09/23/2023 DIABETES-FOOT EXAM WITH MONOFILAMENT 09/23/2023 MAMMOGRAM 10/29/2023 10/28/2021 DIABETES-HGB A1C 02/03/2024 11/03/2023 COVID-19 VACCINE ( season) 2024 01/21/2023, 12/09/2021, 09/13/2021 DEPRESSION SCREENING 08/30/2024 DIABETES - URINE PROTEIN SCREENING 08/30/2024 MEDICARE AWV CALENDAR YEAR 2024 DIABETES-SERUM CREATININE 11/02/20242023, 08/07/2020, 08/07/2020 INFLUENZA VACCINE (Season Ended) 2025 06/10/2023, 07/02/2022, 07/18/2021, Additional history exists HEPATITIS C SCREENING Completed 11/03/2023 HIB VACCINE Aged Out No longer eligi ble based on patient's age to complete this topic HPV VACCINE Aged Out No longer eligi ble based on patient's age to complete this topic MENINGOCOCCAL (Group B) VACCINE SHARED DECISION-MAKING Aged Out No longer eligible based on patient's age to complete this topic MENINGOCOCCAL GROUPS A/C/Y/W VACCINE Aged Out No longer eligible based on patient's age to complete this topic Medical Devices Implanted Type Area Tumbling Instructor Device Identifier Shelf Expiration Date Model / Serial / Lot [place] [employer] Promus Stent Stent Description:MRI CONDITIONAL : 1.5T AND 3T Procedures Procedure Name Priority Date/Time Associated Diagnosis Comments COMPREHENSIVE METABOLIC PANEL Routine 11/03/2023 9:03 AM WORD PROCESSING MACHINE OPERATOR Hepatic steatosis HEPATITIS C ANTIBODY W RFLX PCR Routine 11/03/2023 9:03 AM WORD PROCESSING MACHINE OPERATOR Hepatic steatosis HEMOGLOBIN A1C Routine 11/03/2023 9:03 AM WORD PROCESSING MACHINE OPERATOR Type 2 diabetes mellitus with other specified complication, unspecified whether prison insulin use from Last 3 Months or Most Recently Relevant to Health Maintenance Results * HEPATITIS C ANTIBODY W RFLX PCR (11/03/2023 9:03 AM WORD PROCESSING MACHINE OPERATOR) Pathologist [facility] Hepatitis C Antibody Non Reactive Non Reactive 11/04/2023 2:12 PM [facility] ([facility]) Blood BLOOD SPECIMEN / Unknown Lab Venipuncture / Unknown 11/03/2023 9:03 AM WORD PROCESSING MACHINE OPERATOR 11/03/2023 9:43 AM WORD PROCESSING MACHINE OPERATOR Narrative [facility] ([facility]) - 11/04/2023 2:12 PM WORD PROCESSING MACHINE OPERATOR Performed at: [facility] [address] [place], [place] [id number] Social Service Technician: Akash Wu PhD, Phone: [phone] Martin Handy MD LAB - CHEMISTRY ORDERABLES Final Result [facility] ([facility]) [address] [place] [address] * (ABNORMAL) HEMOGLOBIN A1C (11/03/2023 9:03 AM WORD PROCESSING MACHINE OPERATOR) Hemoglobin A1c 8.1(H) <=5.6 % 11/03/2023 10:59 AM WORD PROCESSING MACHINE OPERATOR [facility] Estimated Average Glucose 186 mg/dL 11/03/2023 10:59 AM [facility] Comment: HbA1c Interpretation: Normal : < 5.7% Pre-diabetes: 5.7-6.4% Diabetes: Equal to or greater than 6.5% Test results diagnostic of diabetes should be repeated for confirmation. Treatment target values recommended by ADA and other clinical organizations should be used to evaluate metabolic control in patients. Reference: [place] Diabetes Association, Standards of Care in Diabetes -2020 In patients 70 years and older consider HbA1c target range of 7.0-7.5% (Reference: Jitendra Crawley et al. JAMDA. 2012) The Sebia assay for the measurement of HbA1c is a National Glycohemoglobin Standardization Program (NGSP) certified method. Blood BLOOD SPECIMEN / Unknown Lab Venipuncture / Unknown 11/03/2023 9:03 AM WORD PROCESSING MACHINE OPERATOR 11/03/2023 9:47 AM WORD PROCESSING MACHINE OPERATOR Leander Berrios III, MD LAB - CHEMISTRY ORDERABLE S Final Result [facility] [address] [place] [address], [facility] [phone] * (ABNORMAL) COMPREHENSIVE METABOLIC PANEL (11/03/2023 9:03 AM [facility]) BUN 17 7 - 26 mg/dL 11/03/2023 10:20 AM [facility] Creatinine 1.60(H) 0.56 - 0.96 mg/dL 11/03/2023 10:20 AM [facility] Sodium 137 136 - 145 mmol/L 11/03/2023 10:20 AM [facility] Potassium 3.7 3.5 - 4.5 mmol/L 11/03/2023 10:20 AM [facility] Chloride 106 98 - 107 mmol/L 11/03/2023 10:20 AM [facility] CO2 25 22 - 29 mmol/L 11/03/2023 10:20 AM [facility] Glucose 257(H) 70 - 115 mg/dL 11/03/2023 10:20 AM [facility] Calcium 8.8 8.4 - 10.2 mg/dL 11/03/2023 10:20 AM [facility] Protein Total 7.4 6.0 - 8.3 g/dL 11/03/2023 10:20 AM [facility] Albumin 3.3(L) 3.4 - 5.0 g/dL 11/03/2023 10:20 AM [facility] Bilirubin Total 0.2 0.2 - 1.2 mg/dL 11/03/2023 10:20 AM [facility] Alkaline Phosphatase 146 40 - 150 U/L 11/03/2023 10:20 AM [facility] ALT 11 5 - 55 U/L 11/03/2023 10:20 AM [facility] AST 11 5 - 34 U/L 11/03/2023 10:20 AM [facility] Anion Gap 6 6 - 16 11/03/2023 10:20 AM [facility] BUN/Creatinine Ratio 11 7 - 23 11/03/2023 10:20 AM [facility] Osmolality Calculated 294 275 - 295 mOsm/kg 11/03/2023 10:20 AM [facility] Albumin/Globulin Ratio 0.8(L) 1.1 - 2.3 11/03/2023 10:20 AM [facility] eGFR by CKD-EPI 37(L) >=90 mL/min/1.7 3 m2 11/03/2023 10:20 AM [facility] Blood BLOOD SPECIMEN / Unknown Lab Venipuncture / Unknown 11/03/2023 9:03 AM WORD PROCESSING MACHINE OPERATOR 11/03/2023 9:47 AM [facility] Martin Handy MD LAB - CHEMISTRY ORDERABLES Final Result [facility] [address] [place] [address], [facility] [phone] from Last 3 Months or Most Recently Relevant to Health Maintenance Insurance [facility] MANAGED MEDICARE ADV MEDICAID - [place] MEDICARE Care Teams Alloy Weigher Relationship Specialty Start Date End Date Sekou Sheffield MD [address] [facility] [address] [place] [address] PCP - General Internal Medicine 03/11/22
--- OUTSIDE RECORDS SUMMARY | 2025-01-11 17:17 | XMS_ITS | Patient Health Record ---
Author Organization [facility] Address [address] [place] [address] REASON FOR REFERRAL No Information MEDICATIONS Medication SIG (Take, Route, Frequency, Duration) Notes Start Date End Date Status Plavix 75 MG 1 tablet Orally Once a day for 90 days 05/29/2022 Active Clopidogrel Bisulfate 75 MG TAKE 1 TABLE T BY MOUTH ONCE DAILY for 30 Active Potassium Chloride ER 20 MEQ TAKE ONE (1) TABLET BY MOUTH TWICE DAILY WITH FOOD for 30 Active Calcitriol 0.25 MCG TAKE 1 CAPSULE BY MO UTH ONCE DAILY for 30 Active PROBLEMS Problem Type ICD Code Onset Dates Problem Status W/U Status Risk SNOMED Code Notes Problem Type 2 diabetes mellitus with hyperglycemia (E11.65) Active confirmed Hyperglycemia d ue to type 2 diabetes mellitus (646609357356048) Problem Secondary hyperparathyroid ism, not elsewhere classified (E21.1) Active confirmed Secondary hyperparathyroidism (55909949) Problem Vitamin D deficiency, unspecified (E55.9) Active confirmed Vitamin D defic iency (65228215) Problem Renal osteodystrophy (N25.0) Active confirmed Renal osteodyst rophy (25009019) Problem Chronic kidney disease, stage 3b (N18.32) Active confirmed Chronic kidney disease stage 3B (disorder) (343444006) Problem Mesenteric ischemia (K55.9) 020 Active confirmed Vascular insufficiency of intestine (48583083) Problem Mesenteric artery stenosis (K55.1) 020 Active confirmed Mesenteric arter y stenosis (576689677) Problem Obesity determined by physical examination (E66.9) 019 Active confirmed Obesity (725024109) PLAN OF TREATMENT No Information
--- OUTSIDE RECORDS SUMMARY | 2025-01-11 17:17 | XMS_ITS | Patient Health Record ---
Author Organization [facility] Address [address] [facility] [address] [place] [address] Care Team Providers Care Management Professor Name Role Phone Bryce Oden DO Primary Care Provider KM Gallardo Unavailable [phone] Allergies Allergen (clinical drug ingredient) Drug/Non Drug Allergy documented on EMR Reaction Allergy Type Onset Date Status Pneumodoron #1 Unknown Drug Allergy Ac tive Reason For Referral No Information Medications Medication SIG (Take, Route, Frequency, Duration) Notes Start Date End Date Status Propranolol HCl 80 MG 1 tablet Orally Tw ice a day Active traMADol HCl 50 MG 1 tablet as needed Orally Once a day Active Potassium Chloride 20 MEQ 1 packet with food Orally Once a day Active Carafate 1 GM 1 tablet on an empty stomach Orally Twice a day for 30 day(s) Active Zoloft 25 MG 1 tablet Orally Once a day for 30 day(s) Active Gabapentin 600 MG 1 tablet Orally Once a day for 30 day(s) Active LORazepam 1 MG 1 tablet at bedtime as needed Orally Once a day Active metFORMIN HCl 500 MG 1 tablet with a amanda l Orally Once a day Active Plavix 75 MG 1 tablet Orally Once a day for 30 day(s) 11/20/2021 Active Prasugrel HCl 10 MG Take 1 tablet by kamryn once daily for 30 Active Omeprazole 40 MG 1 capsule 30 minutes before morning meal Orally Once a day for 30 day(s) Active ProAir HFA 108 (90 Base) MCG/ACT 2 puffs as needed Inhalation every 6 hrs Active Nadolol 20 MG 1 tablet Orally Once a day Not-Taking Colchicine 0.6 MG 1 tablet Orally Twic a day for 30 day(s) 04/30/2020 Active glyBURIDE 5 MG 1 tablet with breakfast or the first main meal of the day Orally Once a day for 30 day(s) Active Nitroglycerin 0.4 MG as directed Subling ual as needed every 5 min for chest pain. up to 3 doses for 30 day(s) Active Atorvastatin Calcium 40 MG Take 1 tablet by mouth once daily for 30 Active Furosemide 40 MG 1 tablet Orally Ever y other day for 30 day(s) Active Social History Tobacco Use: Social History Observation Description Date Details (start date - stop date) Current Smoker NA - NA Tobacco Use/Smoking Question Answer Notes Are you a current every day smoker Additional Findings: Tobacco User Moderate cigar ette smoker (10-19 cigs/day) Alcohol Screen (Audit-C) Question Answer Notes Did you have a drink containing alcohol in the p ast year? No Points 0 Interpretation Negative Problems Problem Type SNOMED Code ICD Code Onset Dates Problem Status W/U Status Risk Notes Problem Counseling about tobacco use (444414479) Tobacco abuse counseling (Z71.6) Active confirmed Problem Post percutaneous transluminal coronary angioplasty (781673748) Coronary angioplasty status (Z98.61) Active confirmed Problem Dyslipidemia (119586218) Dyslipidemia (E78.5) Active confirmed Problem Obesity (190491857) Obesity (BMI 30.0-34.9) (E66.9) Active confirmed Problem Chest pain at rest (9366079) Chest pain at rest (R07.9) Active confirmed Problem Preinfarction syndrome (6888598) Unstable angina pectoris (I20.0) Active confirmed Problem Vascular insufficiency of intestine (03768603) Mesenteric ischemia (K55.9) Active confirmed Problem Abnormal results of cardiovascular function studies (072935373) Abnormal stress ECG (R94.39) Active confirmed Problem 062274716 Obesity determined by physical examination (E66.9) Active confirmed Problem Mesenteric artery stenosis (772995226) Mesenteric artery stenosis (K55.1) Active confirmed Problem Atherosclerotic heart disease of elim ira coronary artery without angina pectoris (486961327855294) CAD in elim ira artery (I25.10) Active confirmed Plan Of Treatment No Information Insurance Providers Payer Name Payer Address Payer Phone Subscriber Number Group Number Insured Name Patient Relationship to Insured Coverage Start Date Coverage End Date [employer] [address] [address] [address] [address] [place] [address] [id number] Stefany Bradyyn Self - patient is the insured [facility] [address] [place], [place] [id number] [facility] Elliscalin Naa poon Self - patient is the insured 6 0 [facility] [address] [address] [place] [address] [id number] thu Baezian Naa poon Self - patient is the insured 4 Medical (General) History Medical History History ICD Code HTN,COPD,DM,Obesity Surgical History Surgery Date(Month/Year) hernia gallbaldder
[2025-01-11] MEDS: KETOROLAC 30 MG/ML VIAL (*BKC) 15 MG IM (17:44)
[2025-01-11 17:47] VITALS: BP 101/87; PULSE 79; RESP 18; O2SAT 100
--- NOTE | 2025-01-11 18:51 | ED.EXTPRO ---
HPI - Extremity Problem General Chief complaint: Extremity Problem,Nontraumatic Stated complaint: right knee pain/swelling Time Seen by Provider: 01/11/25 16:45 History of Present Illness HPI Narrative: Patient came in with atraumatic pain to her right knee, and swelling, this started this morning. Has not had this happen in the past. No fevers or chills. Related Data Home Medications Medication Instructions Recorded Confirmed Last Taken Type albuterol sulfate 90 mcg/actuation inhalation PRN 08/02/24 01/02/25 Unknown History aerosol inhaler alcohol swabs (Alcohol Pads) pad topical 08/02/24 01/02/25 Unknown History blood sugar diagnostic (True #10 ea 08/02/24 01/02/25 Unknown History Metrix Glucose Test Strip) calcitriol 0.25 mcg capsule mcg PO DAILY 08/02/24 01/02/25 Unknown History clopidogrel 75 mg tablet mg PO 08/02/24 01/02/25 Unknown History ergocalciferol (vitamin D2) 1,250 PO WEEKLY 08/02/24 01/02/25 Unknown History mcg (50,000 unit) capsule fluticasone furoate 100 1 inh inhalation DAILY 08/02/24 01/02/25 Unknown History mcg-vilanterol 25 mcg/dose inhalation powder (Breo Ellipta) gabapentin 100 mg capsule 200 mg PO TID 08/02/24 01/02/25 Unknown History lancets 33 gauge (Easy Touch Twist #100 ea 08/02/24 01/02/25 Unknown History Lancets) omihjhma-qfat-zlaw 8 mg-folic 400 1 tablet PO DAILY 08/02/24 01/02/25 Unknown History mcg-K 50 mcg-lutein 300 mcg tablet (Centrum Silver Women) nitroglycerin 0.4 mg sublingual mg sublingual 08/02/24 01/02/25 Unknown History tablet potassium chloride 20 mEq meq PO DAILY 08/02/24 01/02/25 Unknown History tablet,extended release sertraline 50 mg tablet mg PO DAILY 08/02/24 01/02/25 Unknown History Allergies Allergy/AdvReac Type Severity Reaction Status Date / Time pneumococcal vaccine (From AdvReac Severe Hives Verified 01/11/25 16:35 Pneumovax-23) Review of Systems Review of Systems: All systems reviewed & are unremarkable except as noted in HPI and below PMFSH Past Medical History Medical History LINDA (obstructive sleep apnea) COPD (chronic obstructive pulmonary disease) Steatosis of liver Porokeratosis Non-alcoholic fatty liver disease Mild persistent asthma Anemia Hyperlipidemia Cervical radiculopathy CKD (chronic kidney disease) Coronary arteriosclerosis Vitamin D dependent rickets Ingrown toenail Low back pain ACTH deficiency Surgical History Surgical History H/O right heart catheterization Hx of cholecystectomy History of heart artery stent H/O: hysterectomy Social History Social History Smoking status: Current every day smoker Alcohol intake: never Substance use: never Gender identity (if verbalized by the patient): Female Exam Narrative: EXAMINATION OF ORGAN SYSTEMS/BODY AREAS: Constitutional: Vital signs per nursing GENERAL:[No acute distress, non-toxic appearing.] HEAD: Normal with no signs of head trauma. EYES: EOMI, conjunctiva normal ENT: Hearing grossly intact LUNGS: Nonlabored breathing. HEART: [Regular rate and rhythm] ABD: [Soft], [nontender to palpation] EXT: Swelling and pain to right knee; no warmth. Able to extend and flex knee SKIN: [No rashes or lesions.] no overlying erythema NEURO: [Alert and oriented x 3. No gross focal sensory or strength deficits.] PSYCH: Normal affect Course Vital Signs Vital signs: Vital Signs Temperature 98.1 F 01/11/25 16:25 Pulse Rate 75 01/11/25 16:25 Respiratory Rate 19 01/11/25 16:25 Blood Pressure 105/73 01/11/25 16:25 Pulse Oximetry 98 01/11/25 16:25 Oxygen Delivery Room Air 01/11/25 16:25 Temperature 98.1 F 01/11/25 16:25 Pulse Rate 79 01/11/25 17:47 Respiratory Rate 18 01/11/25 17:47 Blood Pressure 101/87 01/11/25 17:47 Pulse Oximetry 100 01/11/25 17:47 Oxygen Delivery Room Air 01/11/25 16:25 MDM - Extremity (Nontraumatic) MDM Narrative Medical decision making narrative: Patient presenting with right knee pain and swelling, she has no systemic symptoms or fevers, there is no overlying redness or warmth, she is able to bend the knee without significant pain, I have very low concern for septic joint. X-ray confirms suprapatellar bursitis. Patient does feel she can get around at home with a walker, I did prescribe pain medications and steroids, which she has done well with in the past, and she is given strict return precautions if she cannot get around at home, or if she starts having any signs of infection such as or pain or redness or warmth to the joint that she is to return immediately. Patient agreeable to this plan as well as close follow-up to Orthopedics. Discharge Plan Discharge Clinical Impression: Suprapatellar bursitis of right knee Patient Disposition: Home Condition: Stable Instructions: Knee Bursitis (ED) Additional Instructions: Please follow-up with orthopedic doctor, take medications as prescribed, and if you start having worsening pain, or noticed any redness or fevers or chills, come back to the hospital. Patient Language: Persian Prescriptions: New prednisone 20 mg tablet 40 mg PO DAILY 5 Days Qty: 10 0RF ibuprofen 600 mg tablet 600 mg PO TID PRN (Reason: fever or pain) Qty: 30 0RF oxycodone 5 mg tablet 5 mg PO Q6H PRN (Reason: pain) Qty: 14 0RF No Action clopidogrel 75 mg tablet PO (DME) lancets [Easy Touch Twist Lancets] 33 gauge misc See Rx Instructions .ROUTE .MEDSUPPLY Qty: 100 Rx Instructions: As directed nitroglycerin 0.4 mg tablet, sublingual sublingual (DME) True Metrix Glucose Test Strip Strip See Rx Instructions .ROUTE .MEDSUPPLY Qty: 10 Rx Instructions: As directed alcohol swabs [Alcohol Pads] Pads, Medicated topical calcitriol 0.25 mcg capsule PO DAILY gabapentin 100 mg capsule 200 mg PO TID potassium chloride 20 mEq tablet extended release PO DAILY ergocalciferol (vitamin D2) 1,250 mcg (50,000 unit) capsule PO WEEKLY sertraline 50 mg tablet PO DAILY Centrum Silver Women 8 mg iron-400 mcg-50 mcg tablet 1 tablet PO DAILY albuterol sulfate 90 mcg/actuation HFA aerosol inhaler inhalation PRN fluticasone furoate-vilanterol [Breo Ellipta] 100-25 mcg/dose blister with device 1 inh inhalation DAILY rosuvastatin 40 mg tablet 40 mg PO DAILY Qty: 90 1RF (DME) FreeStyle Paulina 3 [place] Misc See Rx Instructions .Route Qty: 1 0RF Rx Instructions: As directed Baqsimi 3 mg/actuation spray,non-aerosol 3 mg intranasal ONCE PRN (Reason: hypoglycemia) Qty: 1 1RF Rx Instructions: as a single dose docusate sodium [Colace] 100 mg capsule 100 mg PO DAILY Qty: 90 1RF dapagliflozin propanediol [Farxiga] 10 mg tablet 10 mg PO DAILY Qty: 90 1RF Ozempic 2 mg/dose (8 mg/3 mL) pen injector 2 mg subcut WEEKLY 90 Days Qty: 9.75 1RF (DME) FreeStyle Paulina 3 Plus Sensor Device See Rx Instructions .Route Qty: 6 1RF Rx Instructions: As directed Follow-up/Referrals: Sean Ramírez MD [Physician] - 2 Days UNKNOWN,DOCTOR [Primary Care Provider] -
== END 2025-01-11 18:03 | disposition home or self-care (01) ==
PROVIDERS: Emergency Provider Emergency Medicine
DX: M70.41 Prepatellar bursitis, right knee (principal); J44.9 Chronic obstructive pulmonary disease, unspecified; G47.33 Obstructive sleep apnea (adult) (pediatric); J45.909 Unspecified asthma, uncomplicated; E78.5 Hyperlipidemia, unspecified; N18.9 Chronic kidney disease, unspecified; Z87.891 Personal history of nicotine dependence
CPT/HCPCS: 73562; 96372; 99283; A9270; J1885

== ENCOUNTER 2025-01-24 09:14 | Outpatient (CLI) | payer MEDICARE, MEDICAID, SELFPAY ==
--- OUTSIDE RECORDS SUMMARY | 2025-01-24 09:17 | XMS_ITS | Clinical Summary ---
Author Organization [facility] Facility Address [address] [place] [address] Care Team Providers Care Plow Shaker Name Role Phone Sekou Sheffield MD Primary Care Provider [phone] Medications Semaglutide, 2 MG/DOSE, (Ozempic, 2 MG/DOSE,) [...] tablet 1 11/07/2024 Active ergocalciferol 1.25 MG (28328 UT) capsule Take 1 capsule (50,000 Units [...] Department Care Team Description 01/10/2025 Orders Only [facility], [address] [address] Amelia Velazquez Essential hypertension (Primary Dx) 01/09/2025 Documentation Only [facility] [address] [address] Kwesi Whiting DO 12/13/2024 Documentation Only [address] [address] Kwesi Whiting DO 12/11/[address] [address] [place], [facility] 11/07/2024 1:30 PM CDT Office Visit [facility] [address] [phone] Kwesi Whiting DO Chronic kidney disease, stage 4 (severe) (HCC) (Primary Dx); Persistent proteinuria; Proximal renal tubular acidosis; Ischemic cardiomyopathy; Coronary artery disease due to calcified coronary lesion; Simple chronic bronchitis (HCC); Type 2 diabetes mellitus with diabetic chronic kidney disease (HCC); Pure hypercholesterolemia , not otherwise specified; Tobacco use 11/07/2024 Refill [facility] [address] [phone] [place], [facility] 11/03/2024 Orders Only [address] [address] Kwesi Whiting DO from Last 3 Months Social History Tobacco [...] 1:59 PM CDT Height 160 cm (5' 3) 12/08/2022 12:10 PM CDT Body Mass Index 32.77 12/08/2022 12:10 PM CDT Plan of Treatment Upcoming Encounters Date Type Department Care Team (Late st Contact Info) Description 02/13/2025 1:00 PM CDT Office Visit [facility], [facility] [address] [facility] [address] [place] [address] Kwesi Whiting DO [address] [place] [address] Health Maintenance Due Date Last [...] Exam 07/30/2022 Diabetes: Hemoglobin A1C 02/03/2025 11/03/2024, 03/0 01/2024 Influenza Vaccine (Season Ended) 2025 06/10/2023, 07/02/2022, 07/18/2021, Additional history exists Pneumococcal Vaccine: Peds ( 0 to 5 Years) and At-Risk Patients (6 to 49 Years) Discontinued 07/01/2016 Procedures Procedure Name Priority Date/Time Associated Diagnosis Comments MAGNESIUM Routine 11/03/2024 1:27 PM STATISTICAL CLERK VITAMIN D 25 HYDROXY Routine 11/03/2024 1:27 PM STATISTICAL CLERK HEMOGLOBIN A1C Routine 11/03/2024 1:27 PM STATISTICAL CLERK CYSTATIN C WITH EGFR Routine 11/03/2024 1:27 PM STATISTICAL CLERK URINE ALBUMIN / CREATININE RATIO Routine 11/03/2024 1:27 PM STATISTICAL CLERK PROTEIN / CREATININE RATIO, URINE Routine 11/03/2024 1:27 PM STATISTICAL CLERK RENAL FUNCTION PANEL Routine 11/03/2024 1:27 PM STATISTICAL CLERK CBC DIFF AMBIGUOUS DEFAULT - DO NOT USE Routine 11/03/2024 1:27 PM STATISTICAL CLERK from Last 3 Months Results * (ABNORMAL) Cystatin C w/GFR (11/03/2024 1:27 PM STATISTICAL CLERK) Pathologist [facility] Cystatin C 2.27(H) 0.67 - 1.14 mg/L [facility] eGFR by Cystatin C 25(L) >59 mL/min/1.7 3 [facility] 11/03/2024 1:27 PM STATISTICAL CLERK 11/02/2024 11:00 PM STATISTICAL CLERK us Kwesi Whiting DO LAB BLOOD ORDERABLES Final R esult [facility] [address] [place] [address] * CBC Diff Ambiguous Default (11/03/2024 1:27 PM STATISTICAL CLERK) WBC 6.9 3.4 - 10.8 x10E3/uL [facility] RBC 4.84 3.77 - 5.28 x10E6/uL [facility] Hemoglobin 14.9 11.1 - 15.9 g/dL [facility] Hematocrit 44.7 34.0 - 46.6 % [facility] MCV 92 79 - 97 fL [facility] MCH 30.8 26.6 - 33.0 pg [facility] MCHC 33.3 31.5 - 35.7 g/dL [facility] RDW 14.2 11.7 - 15.4 % [facility] Platelets 242 150 - 450 x10E3/uL [facility] Neutrophils Relative 68 Not Estab. % [facility] Lymphocytes Relative 22 Not Estab. % [facility] Monocytes 5 Not Estab. % [facility] Eosinophils Relative 4 Not Estab. % [facility] Basophils Relative 1 Not Estab. % [facility] Neutrophils Absolute 4.7 1.4 - 7.0 x10E3/uL [facility] Lymphocytes Absolute 1.5 0.7 - 3.1 x10E3/uL [facility] Monocytes Absolute 0.3 0.1 - 0.9 x10E3/uL [facility] Eosinophils Absolute 0.3 0.0 - 0.4 x10E3/uL [facility] Basophils Absolute 0.1 0.0 - 0.2 x10E3/uL [facility] Immature Granulocytes 0 Not Estab. % [facility] Immature Grans (Absolute) 0.0 0.0 - 0.1 x10E3/uL [facility] Comment: A hand-written panel/profile was received from your office. In accordance with the [facility] Ambiguous Test Code Policy dated February 2003, we have assigned CBC with Differential/Platelet, Test Code #173292 to this request. If this is not the testing you wished to receive on this specimen, please contact the [facility] Client Inquiry/ Technical Services Department to clarify the test order. We appreciate your business. 11/03/2024 1:27 PM STATISTICAL CLERK 11/02/2024 11:00 PM STATISTICAL CLERK Kwesi Whiting DO LAB BLOOD ORDERABLES Final R esult [facility] [employer] [facility] [address] [place] [address] * Protein, Total, Random Urine w/Creatinine (Protein/Creat Ratio) (11/03/2024 1:27 PM STATISTICAL CLERK) Creatinine, Ur 47.3 Not Estab. mg/dL [facility] Protein, Ur 7.2 Not Estab. mg/dL [facility] Urine Protein/Creatin ine Ratio 152 0 - 200 mg/g creat [facility] 11/03/2024 1:27 PM STATISTICAL CLERK 11/02/2024 11:00 PM STATISTICAL CLERK Kwesi Whiting DO LAB URINE ORDERABLES Final R esult [facility] [employer] [facility] [facility] [address] [place] [address] * Urine Albumin / Creatinine Ratio (11/03/2024 1:27 PM STATISTICAL CLERK) Albumin, Urine 5.8 Not Estab. ug/mL [facility] Albumin/Creatin ine Ratio 12 0 - 29 mg/g creat [facility] Comment: Normal: 0 - 29 Moderately increased: 30 - 300 Severely increased: >300 11/03/2024 1:27 PM STATISTICAL CLERK 11/02/2024 11:00 PM STATISTICAL CLERK Kwesi Whiting DO LAB URINE ORDERABLES Final R esult [facility] [address] [place] [address] * (ABNORMAL) Vitamin D 25 Hydroxy (11/03/2024 1:27 PM STATISTICAL CLERK) Vitamin D, 25-OH, Total 26.5(L) 30.0 - 100.0 ng/mL [facility] Comment: Vitamin D deficiency has been defined by the [place] of Medicine and an Endocrine Society practice guideline as a level of serum 25-OH vitamin D less than 20 ng/mL (1,2). The Endocrine Society went on to further define vitamin D insufficiency as a level between 21 and 29 ng/mL (2). 1. IOM ([place] of Medicine). 2010. Dietary reference intakes for calcium and D. [place]: The National Academies Press. 2. Josep MF, Mary JAIME, Power HERNANDEZ, et al. Evaluation, treatment, and prevention of vitamin D deficiency: an Endocrine Society clinical practice guideline. JCEM. 2010; 96(7):1911-30. 11/03/2024 1:27 PM STATISTICAL CLERK 11/02/2024 11:00 PM STATISTICAL CLERK Kwesi Whiting DO LAB BLOOD ORDERABLES Final R esult [facility] [address] [place] [address] * (ABNORMAL) Magnesium (11/03/2024 1:27 PM STATISTICAL CLERK) Magnesium 2.4(H) 1.6 - 2.3 mg/dL [facility] 11/03/2024 1:27 PM STATISTICAL CLERK 11/02/2024 11:00 PM STATISTICAL CLERK Kwesi Whiting DO LAB BLOOD ORDERABLES Final R esult [facility] [address] [place] [address] * (ABNORMAL) Hemoglobin A1c (11/03/2024 1:27 PM STATISTICAL CLERK) Hemoglobin A1C 8.3(H) 4.8 - 5.6 % [facility] Comment: Prediabetes: 5.7 - 6.4 Diabetes: >6.4 Glycemic control for adults with diabetes: <7.0 11/03/2024 1:27 PM STATISTICAL CLERK 11/02/2024 11:00 PM STATISTICAL CLERK Kwesi Whiting DO LAB BLOOD ORDERABLES Final R esult [facility] [address] [place] [address] * (ABNORMAL) Renal Function Panel (11/03/2024 1:27 PM STATISTICAL CLERK) Glucose 174(H) 70 - 99 mg/dL [facility] BUN 15 6 - 24 mg/dL [facility] Creatinine 1.63(H) 0.57 - 1.00 mg/dL [facility] eGFR CKD-EPI CR 2020 36(L) >59 mL/min/1.7 3 [facility] BUN/Creatinine Ratio 9 9 - 23 [facility] Sodium 139 134 - 144 mmol/L [facility] Potassium 3.8 3.5 - 5.2 mmol/L [facility] Chloride 101 96 - 106 mmol/L [facility] Bicarbonate (CO2) 23 20 - 29 mmol/L [facility] Calcium 9.4 8.7 - 10.2 mg/dL [facility] Phosphorus 3.4 3.0 - 4.3 mg/dL [facility] Albumin 3.9 3.8 - 4.9 g/dL [facility] 11/03/2024 1:27 PM STATISTICAL CLERK 11/02/2024 11:00 PM STATISTICAL CLERK us Kwesi Whiting DO LAB BLOOD ORDERABLES Final R esult [facility] [address] [place] [address] from Last 3 Months Insurance UHC Medicare Medicaid [place] Care Teams Plow Shaker Relationship Specialty Start Date End Date Sekou Sheffield MD [address], [address] [place] [address] PCP - General Internal Medicine 07/06/22
--- OUTSIDE RECORDS SUMMARY | 2025-01-24 09:18 | XMS_ITS | Clinical Summary ---
Author Organization [facility] Address [address] [place] [address] Care Team Providers Care Credit Administration Specialist Name Role Phone Sekou Sheffield MD Primary Care Provider Source Comments [facility] [email or web address],non-owned Affiliates and Associated Physician Practices is amultiple site organization consisting of ambulatory clinics and hospital sitesin [place], [place], [place] and [place]. This disclosure is being madepursuant to the Care Everywhere program and may not contain all information available regarding this patient. Last updated 18.[facility] [email or web address] Allergies Active Allergy Reactions Criticality Noted Date [...] 09/10/19 24 Active ergocalciferol (Drisdol) 1.25 MG (49918 UT) capsule Take 1 (one) capsule by [...] mellitus with other specified complication, unspecified whether correction insulin use (HCC) INJECT 2 MG SUBCUTANEOUSLY [...] 10:08 AM CDT Height 160 cm (5' 3) 01/27/2024 10:08 AM CDT Body Mass Index [...] this topic Medical Devices Implanted Type Area Union Representative Device Identifier Shelf Expiration Date Model / Serial / Lot [place] Sci Promus Stent Stent Description:MRI CONDITIONAL : 1.5T AND 3T Procedures Procedure Name Priority Date/Time Associated Diagnosis Comments COMPREHENSIVE METABOLIC PANEL Routine 11/03/2023 9:03 AM [employer] Hepatic steatosis HEPATITIS C ANTIBODY W RFLX PCR Routine 11/03/2023 9:03 AM [employer] Hepatic steatosis HEMOGLOBIN A1C Routine 11/03/2023 9:03 AM [employer] Type 2 diabetes mellitus with other specified complication, unspecified whether correction insulin use from Last 3 Months or Most Recently Relevant to Health Maintenance Results * HEPATITIS C ANTIBODY W RFLX PCR (11/03/2023 9:03 AM [employer]) Pathologist [facility] Hepatitis C Antibody Non Reactive Non Reactive 11/04/2023 2:12 PM [facility] ([facility]) Blood BLOOD SPECIMEN / Unknown Lab Venipuncture / Unknown 11/03/2023 9:03 AM [employer] 11/03/2023 9:43 AM [employer] Narrative [facility] ([facility]) - 11/04/2023 2:12 PM [employer] Performed at: [facility] [address] [place], [place] [id number] Sink Cutter: Akash Wu PhD, Phone: [phone] Martin Handy MD LAB - CHEMISTRY ORDERABLES Final Result [facility] ([facility]) [address] [place] [address] * (ABNORMAL) HEMOGLOBIN A1C (11/03/2023 9:03 AM [employer]) Hemoglobin A1c 8.1(H) <=5.6 % 11/03/2023 10:59 AM [employer] [facility] Estimated Average Glucose 186 mg/dL 11/03/2023 10:59 AM [facility] Comment: HbA1c Interpretation: Normal : < 5.7% Pre-diabetes: 5.7-6.4% Diabetes: Equal to or greater than 6.5% Test results diagnostic of diabetes should be repeated for confirmation. Treatment target values recommended by ADA and other clinical organizations should be used to evaluate metabolic control in patients. Reference: [place] [employer], Standards of Care in Diabetes -2020 In patients 70 years and older consider HbA1c target range of 7.0-7.5% (Reference: Jitendra Crawley et al. JAMDA. 2012) The Sebia assay for the measurement of HbA1c is a National Glycohemoglobin Standardization Program (NGSP) certified method. Blood BLOOD SPECIMEN / Unknown Lab Venipuncture / Unknown 11/03/2023 9:03 AM [employer] 11/03/2023 9:47 AM [employer] Leander Berrios III, MD LAB - CHEMISTRY ORDERABLE S Final Result [facility] [address] [place] [address], [facility] [phone] * (ABNORMAL) COMPREHENSIVE METABOLIC PANEL (11/03/2023 9:03 AM [facility]) BUN 17 7 - 26 mg/dL 11/03/2023 10:20 AM [facility] Creatinine 1.60(H) 0.56 - 0.96 mg/dL 11/03/2023 10:20 AM [facility] Sodium 137 136 - 145 mmol/L 11/03/2023 10:20 AM [facility] Potassium 3.7 3.5 - 4.5 mmol/L 11/03/2023 10:20 AM [facility] Chloride 106 98 - 107 mmol/L 11/03/2023 10:20 AM [facility] CO2 25 22 - 29 mmol/L 11/03/2023 10:20 AM [facility] Glucose 257(H) 70 - 115 mg/dL 11/03/2023 10:20 AM [facility] Calcium 8.8 8.4 - 10.2 mg/dL 11/03/2023 10:20 AM [facility] Protein Total 7.4 6.0 - 8.3 g/dL 11/03/2023 10:20 AM [facility] Albumin 3.3(L) 3.4 - 5.0 g/dL 11/03/2023 10:20 AM [facility] Bilirubin Total 0.2 0.2 - 1.2 mg/dL 11/03/2023 10:20 AM [facility] Alkaline Phosphatase 146 40 - 150 U/L 11/03/2023 10:20 AM [facility] ALT 11 5 - 55 U/L 11/03/2023 10:20 AM [facility] AST 11 5 - 34 U/L 11/03/2023 10:20 AM [facility] Anion Gap 6 6 - 16 11/03/2023 10:20 AM [facility] BUN/Creatinine Ratio 11 7 - 23 11/03/2023 10:20 AM [facility] Osmolality Calculated 294 275 - 295 mOsm/kg 11/03/2023 10:20 AM [facility] Albumin/Globulin Ratio 0.8(L) 1.1 - 2.3 11/03/2023 10:20 AM [facility] eGFR by CKD-EPI 37(L) >=90 mL/min/1.7 3 m2 11/03/2023 10:20 AM [facility] Blood BLOOD SPECIMEN / Unknown Lab Venipuncture / Unknown 11/03/2023 9:03 AM [employer] 11/03/2023 9:47 AM [facility] Martin Handy MD LAB - CHEMISTRY ORDERABLES Final Result [facility] [address] [place] [address], [facility] [phone] from Last 3 Months or Most Recently Relevant to Health Maintenance Insurance [facility] [place] [address] MEDICAID - [place] MEDIC[place] Care Teams Credit Administration Specialist Relationship Specialty Start Date End Date Sekou Sheffield MD [address] [facility] [address] [address] [place] [address] PCP - General Internal Medicine 03/11/22
--- OUTSIDE RECORDS SUMMARY | 2025-01-24 09:18 | XMS_ITS | Continuity of Care Document ---
Author Organization [facility] Address [address] [place] [address] Phone Care Team Providers Care Car Cooper Name Role Phone Shaquille Bae MD Unavailable [...] 2 Or 3 Views Office consultation, moderate-high Office/outpatient visit,est, mod 2019 Office/outpatient visit,est, mod [...] Diagnoses Date Provider Providers Copied on Encounter [facility], [address], [place], [place], [id number], [place] tel:[phone] OI Procedure Room Other chronic pain 0 Catalino Corbin. [address], [place], [id number] , [place]. tel:[phone] Referring Provider: Chan Clark, [address] [place] [address], [address] . tel:[phone] Office/outpa tient visit,[facility], [address] [place] [address], [id number], tel:[phone] SOA PA knee (chief complaint) Patellofemoral arthritis Apr-0 7-202 0 Luis Gonzales. [address] [place] [address], [id number] , [place]. [phone] Office/outpa tient visit,[facility], [address] [place] [address], [id number], tel:[phone] SOA PA lumbar spine (chief complaint) Chronic right SI joint painLumbar radiculopathyRigh t anterior knee painOther chronic pain Apr-0 3-202 0 Paramjit Meshcrys. [address] [place] [address], [id number] , . tel:[phone] [facility], [address] [place] [address], [id number], tel:[phone] OISI Procedure Room Other chronic pain Mar-2 0-202 0 Catalino Enid. [address], [place], [place], [id number] , [place]. tel:[phone] Referring Provider: Bryce Alfaro, [address], [place], [address]. tel:[phone] [facility], [address] [place] [address], [id number], tel:[phone] [facility] Procedure Room Other chronic pain Mar-0 6-202 0 Catalino Shaquille. [address], [place], [id number] , [place]. tel:[phone] Referring Provider: Bryce Alfaro, [address], [place], [address]. tel:[phone] Office consultation , moderate-hig h [facility], [address] [place] [address], [id number], tel:[phone] [place] [facility] PA lumbar spine (chief complaint) Low back painLumbar radiculopathyLumb ar spondylosisChroni c right SI joint painOther chronic pain 2-202 0 Paramjit Meshcrys. [address] [place], [place], [id number] , . tel:[phone] Referring Provider: Bryce Alfaro, [address], [place], [address]. tel:[phone] Office/outpa tient visit,est, [facility], [address] [place] [address], [id number], tel:[phone] [facility] shoulder (chief complaint) Bicipital tendinitis, right shoulderImpingeme nt syndrome of right shoulderPain in right shoulderStrain of musc/tend the rotator cuff of right shoulder, subs Sep- 0-202 0 Tyler Garner. [address], [place], [id number] , . tel:[phone] Office/outpa tient visit,est, [facility], [address] [place] [address], [id number], tel:[phone] [facility] shoulder (chief complaint) Bicipital tendinitis, right shoulderImpingeme nt syndrome of right shoulderPain in right shoulderStrain of musc/tend the rotator cuff of right shoulder, subsOther shoulder lesions, right shoulder Antonio-0 8-202 0 Tyler Garner. [address], [place], [id number] , [place]. tel:[phone] Office/outpa tient visit,est, [facility], [address] [place] [address], [id number], tel:[phone] [facility] shoulder (chief complaint) Tendinitis of right rotator cuffPain in right shoulder Jul-0 9-201 9 Tyler Garner. [address] [place] [address], [id number] , . tel:[phone] [facility], [address] [place] [address], [id number], tel:[phone] [facility] No Information 0 9 Tyler Garner. [address], [place], [id number] , . tel:[phone] Office/outpa tient visit,est, [facility], [address] [place] [address], [id number], tel:[phone] [facility] shoulder (chief complaint) Strain of musc/tend the rotator cuff of right shoulder, subsPain in right shoulder 9 Tyler Garner. [address], [place], [id number] , [place]. tel:[phone] Office/outpa tient visit,est, [facility], [address], [place], [id number], tel:[phone] [facility] shoulder (chief complaint) Bicipital tendinitis, right shoulderImpingeme nt syndrome of right shoulderStrain of musc/tend the rotator cuff of right shoulder, subs 2 9 Day Mark. [address] [place] [address], [id number] , [place]. tel:[phone] Office/outpa tient visit,est, [facility], [address], [place], [id number], tel:[phone] [facility] shoulder (chief complaint) Bicipital tendinitis, right shoulderImpingeme nt syndrome of right shoulderPain in right shoulderStrain of musc/tend the rotator cuff of right shoulder, subs 0 8 Day Mark. [address], [place], [id number] , [place]. tel:[phone] Office/outpa tient visit,est, [facility], [address], [place], [id number], tel:[phone] [facility] shoulder (chief complaint) Bicipital tendinitis, right shoulderImpingeme nt syndrome of right shoulderStrain of musc/tend the rotator cuff of right shoulder, subsPain in right shoulder Sep- 8 Day Mark. [address], [place], [id number] , [place]. tel:[phone] Office/outpa tient visit,est, mod [facility], [address], [place], [id number], [place] tel:[phone] [facility] shoulder (chief complaint) Bicipital tendinitis, right shoulderImpingeme nt syndrome of right shoulderPain in right shoulderStrain of musc/tend the rotator cuff of right shoulder, subs Feb- 8 Day Mark. [address], [place], [id number] , [place]. tel:[phone] [facility], [address], [place], [id number], [place] tel:[phone] [facility] shoulder (chief complaint) Bicipital tendinitis, right shoulderImpingeme nt syndrome of right shoulderPain in right shoulderStrain of musc/tend the rotator cuff of right shoulder, subs May-0 8 Tyler Garner. [address], [place], [id number] , [place]. tel:[phone] [facility], [address], [place], [id number], [place] tel:[phone] [facility] shoulder (chief complaint) Traumatic complete tear of right rotator cuff, subsequent encounterBicipita l tendinitis, right shoulderImpingeme nt syndrome of right shoulderPain in right shoulder Oct- 8 Day Mark. [address], [place], [id number] , [place]. tel:[phone] [facility], [address] [place] [address], [id number], tel:[phone] [facility] Traumatic complete tear of right rotator cuff, ini 8 Tyler Garner. [address], [place], [id number] , [place]. tel:[phone] Referring Provider: Maria Dolores Bonilla[address], [place], [address]. tel:[phone] [facility], [address] [place] [address], [id number], tel:[phone] SI No Information Oct- 3 8 Tyler Pascual. [address] [place] [address], [id number] , [place]. tel: [phone] Referring Provider: Pascual Salinas, [address] [place] [address], [id number] . tel:[phone] [facility], [address] [place] [address], [id number], [place] tel:[phone] [facility] No Information 8 Tyler Garner. [address] [place] [address], [id number] , [place]. tel:[phone] Referring Provider: Pascual Salinas, [address] [place] [address], [address] . tel:[phone] [facility], [address] [place] [address], [id number], [place] tel:[phone] [facility] No Information Oct-0 8 Tyler Garner. [address] [place] [address], [id number] , [place]. tel:[phone] Referring Provider: Pascual Salinas, [address] [place] [address], [address] . tel:[phone] [facility], [address] [place] [address], [id number], [place] tel:[phone] [facility] No Information 0 8 Tyler Pascual. [address] [place] [address], [id number] , [place]. tel:[phone] Referring Provider: Yakelin Vega, [address] , [place], [address] . tel:[phone] [facility], [address] [place] [address], [id number], tel:[phone] [facility] Traumatic complete tear of right rotator cuff, iniImpingement syndrome of right shoulderBiceps tendinitis of right upper extremity 8 Tyler Garner. [address] [place] [address], [id number] , . tel:[phone] Referring Provider: Bryce Alfaro, [address], [place], [address]. tel:[phone] Office/outpa tient visit,[facility], [facility], [address] [place] [address], [id number], tel:[phone] KIMO SANCHEZ right shoulder (chief complaint) Pain in right shoulderImpingeme nt syndrome of right shoulderBiceps tendinitis of right upper extremityTraumati c complete tear of right rotator cuff, initial encounter 8 Shay Flores. [address] [place] [address], [id number] , . tel:[phone] Family History Family Member Type Diagnosis Age At Onset Problem (finding) Family history of Cance r, unknown Problem (finding) Family history of Diabe mattie mellitus Problem (finding) Family history of Heart disease Payers Payer name Insurance type Covered republican ID vanesa matos(s) [employer] CI [id number] Social History Type Description Quantity Date Captured [...] ordered Referral Referred To: Christian Aguilar MD [address] [place] [address], [id number] Ordered: Referrals: Allopathic & Osteopathic Physicians : Orthopaedic Surgery. Christian Aguilar MD. Consult ordered Referral Referred To: Shaquille Bae MD [address] [place], [place], [phone] Ordered: Referrals: Allopathic & Osteopathic Physicians : Physical Medicine & Rehabilitation. Shaquille Bae MD ordered Referral Ordered: Shaquille Bae MD -Allopathic & Osteopathic Physicians : Physical Medicine & Rehabilitation (related to Lumbar radiculopathy) ordered Referral Referred To: Shaquille Bae MD [address] [place], [place], [phone] Ordered: Referrals: Allopathic & Osteopathic Physicians : Physical Medicine & Rehabilitation. Shaquille Bae MD. Evaluate and treat ordered Future Order: Radiology Order Kn ee Xray 3 Views ([id number]), Ordered on: Ordered Future Order: Radiology Order Sp ine Xray Lumbosacral Bending Views Only 2 Or 3 Views ([id number]), Ordered on: Ordered Future Order: Radiology Order MR I Upper Ext Any Joint W/O Contrast ([id number]), Appointment on: Ordered Future Order: Radiology Order Sh oulder Xray Complete Min Of 2 Views ([id number]), Ordered on: Ordered History Of Present Illness [...]
--- OUTSIDE RECORDS SUMMARY | 2025-01-24 09:18 | XMS_ITS | CONTINUITY OF CARE DOCUMENT ---
Author Name adelita ureña Address Unknown Organization [facility] Address [address] [facility] [address] [place] [address] Phone [phone] Care Team Providers Care Children'S Aide Name Role Phone Saqib Dorantes MD Unavailable [phone] GEO PHAM MD Unavailable GEO PHAM MD Unavailable PROBLEMS Condition Status Date Provider Notes Hx of acute myocardial infar ction (AMI) active Justin Castillo PA Specialist Hypertension active Saqib Dorantes MD CAD active Saqib Dorantes MD Hyperlipidemia active Saqib Dorantes MD Diabetes, Type 2 active Saqib Dorantes MD Obesity active Saqib Dorantes MD Tobacco abuse active Saqib Dorantes MD Neuropathy active Saqib Dorantes MD Arthritis active Saqib Dorantes MD Back pain active Saqib Dorantes MD Gout active Saqib Dorantes MD Family History Coronary Hear t Disease male < 55: active Saqib Dorantes MD Chest pain active Saqib Dorantes MD Leg pain active Saqib Dorantes MD CKD stage 4 (gfr 15-29) active Saqib Dorantes MD Shortness of breath on exertion active Karina Dorantes MD ENCOUNTERS Date Type Provider Location Encounter Diag nosis - In-person encounter Office Visit Saqib Dorantes MD [facility] - In-person encounter Office Visit Saqib Dorantes MD [facility] - In-person encounter Office Visit Saqib Dorantes MD [facility] - In-person encounter Office Visit Saqib Dorantes MD [facility] - In-person encounter Office Visit Saqib Dorantes MD [facility] Shortness of breath on exertion - In-person encounter Office Visit Saqib Dorantes MD [facility] CKD stage 4 (gfr 15-29) - In-person encounter Office Visit Saqib Dorantes MD [facility] - In-person encounter Office Visit Saqib Dorantes MD [facility] - In-person encounter Office Visit Saqib Dorantes MD [facility] HypertensionCADHyperlipidemiaDiab etes, Type 2ObesityTobacco abuseNeuropathyArthritisBack painGoutFamily History Coronary Heart Disease male < 55:Chest painLeg pain VITAL SIGNS Date Observation Value Provider Body Mass Index (Ratio) 34.56 kg/m2 Karina Dorantes MD blood pressure, diastolic 86 mm[Hg] Amrita Ventura blood pressure, systolic 125 mm[Hg] Tegan Ventura oxygen saturation, oximetry 97 % Carol Ventura pulse rate 73 /min Carol Ventura respiratory rate E&M 12 /min Carol Ventura weight E&M 189 [lb_av] Carol Ventura height E&M 62 [in_i] Carol Ventura blood pressure, cuff size regular Amrita Ventura Body Mass Index (Ratio) 34.75 kg/m2 Karina Dorantes MD blood pressure, cuff size regular Stiven perez Ibrahim blood pressure, diastolic 78 mm[Hg] Stiven perez Ibrahim blood pressure, systolic 105 mm[Hg] Israel charlton [place] oxygen saturation, oximetry 98 % Sasha Ibrahim pulse rate 77 /min Sasha [place] respiratory rate E&M 20 /min Sasha Ibrahim weight E&M 190 [lb_av] Sasha Ibrahim height E&M 62 [in_i] Sasha Ibrahim Body Mass Index (Ratio) 36.03 kg/m2 Karina Dorantes MD blood pressure, cuff size regular Ja rret blood pressure, diastolic 81 mm[Hg] Ja rret blood pressure, systolic 129 mm[Hg] Jar ret pulse rate 82 /min Yovanny oxygen saturation, oximetry 97 % Yovanny respiratory rate E&M 16 /min Yovanny weight E&M 197 [lb_av] Yovanny y height E&M 62 [in_i] Yovanny y Body Mass Index (Ratio) 35.66 kg/m2 Karina Dorantes MD blood pressure, diastolic 77 mm[Hg] Ashley nkLogic blood pressure, systolic 121 mm[Hg] Micaela kLogic blood pressure, cuff size regular Ja rret blood pressure, diastolic 77 mm[Hg] Ja rret blood pressure, systolic 121 mm[Hg] Sharonda hardy pulse rate 81 /min Yovanny respiratory rate E&M 12 /min Yovanny oxygen saturation, oximetry 100 % Yovanny weight E&M 195 [lb_av] Yovanny height E&M 62 [in_i] Yovanny Body Mass Index (Ratio) 34.93 kg/m2 Karina Dorantes MD blood pressure, diastolic 76 mm[Hg] An medhat Motta blood pressure, systolic 117 mm[Hg] Komal Motta oxygen saturation, oximetry 98 % Fara Motta pulse rate 83 /min Fara Motta weight E&M 191 [lb_av] Fara Motta blood pressure, cuff size large An medhat Motta height E&M 62 [in_i] Fara Motta Body Mass Index (Ratio) 32.19 kg/m2 Karina Dorantes MD blood pressure, diastolic 68 mm[Hg] Ri iqra Costello blood pressure, systolic 103 mm[Hg] Teto emma Costello blood pressure, cuff size regular Ri iqra Costello oxygen saturation, oximetry 97 % Zonia Costello respiratory rate E&M 16 /min Ayala Costello pulse rate 83 /min Zonia Bermudezjanet son weight E&M 176 [lb_av] Zonia Ann son height E&M 62 [in_i] Zonia Ann son Body Mass Index (Ratio) 27.62 kg/m2 Karina Dorantes MD blood pressure, cuff size regular Ca therine Chinmay blood pressure, diastolic 72 mm[Hg] Ca therine [place] blood pressure, systolic 112 mm[Hg] Cat herine Chinmay oxygen saturation, oximetry 96 % Sonia [place] respiratory rate E&M 16 /min Catheri ne [place] pulse rate 90 /min Sonia [place] weight E&M 151 [lb_av] Sonia [place] height E&M 62 [in_i] Sonia Chinmay Body Mass Index (Ratio) 28.16 kg/m2 Karina Dorantes MD pulse rate 94 /min Saqib Dorantes MD oxygen saturation, oximetry 99 % Saqib Dorantes MD blood pressure, diastolic 83 mm[Hg] shawna Jose E LOPEZ blood pressure, systolic 120 mm[Hg] jeremy rodriguez Jose E LOPEZ weight E&M 154 [lb_av] Nickie Dumont blood pressure, cuff size regular ra Dumont height E&M 62 [in_i] Nickie Dumont Body Mass Index (Ratio) 37.67 kg/m2 Karina Dorantes MD blood pressure, diastolic 80 mm[Hg] Ca therine Chinmay blood pressure, systolic 112 mm[Hg] Cat herine [place] blood pressure, cuff size regular Ca therine [place] oxygen saturation, oximetry 96 % Sonai [place] pulse rate 88 /min Sonia [place] respiratory rate E&M 14 /min Catheri ne Chinmay weight E&M 206 [lb_av] Sonia [place] height E&M 62 [in_i] Sonia Chinmay ALLERGIES Allergy Name Onset Date Reaction Criticality Status PNEUMONIA SHOT High Criticality acti ve HISTORY OF MEDICATION USE Medication Status Instructions Dates Provider Indications Com ments nitroglycerin 0.4 mg tablet, sublingual active [address] 1 TABLET UNDER THE TONGUE FOR CHEST PAIN. REPEAT EVERY 5 MINS IF STILL HAVING CHEST PAIN. MAX 3 TABLETS PER EPISODE. IF NO RELIEF GO TO ER. Saqib oDrantes MD Farxiga 10 mg tablet active Siena Ruddglcrys [facility] rosuvastatin 40 mg tablet active Sienamarianela [facility] clopidogrel 75 mg tablet active TAKE 1 TABLET BY MOUTH ONCE DAILY Siena ALBERTO Ozempic 2 mg/dose (8 mg/3 mL) pen injector active Inject 1/4 mg subcutaneously once a week 0.5 mg Saqib Dorantes MD nitroglycerin 0.4 mg tablet, sublingual completed DISSOLVE 1 TABLET UNDER THE TONGUE NEEDED FOR CHEST PAIN EVERY 5 MINUTES UP TO 3 TIMES. IF NO RELIEF CALL 911. - Saqib Dorantes MD gabapentin 100 mg capsule active TAKE 2 CAPSULES BY MOUTH THREE TIMES DAILY Saqib Dorantes MD rosuvastatin 10 mg tablet completed TAKE 1 TABLET BY MOUTH ONCE DAILY FOR 90 DAYS - Siena CHAMBERSP clopidogrel 75 mg tablet completed TAKE 1 TABLET BY MOUTH ONCE DAILY - Siena CHAMBERSP calcitriol 0.25 mcg capsule active TAKE 1 CAPSULE BY MOUTH ONCE DAILY Nickie Dumont clopidogrel 75 mg tablet completed TAKE 1 TABLET BY MOUTH ONCE DAILY - Nickie Dumont Anucort-HC 25 mg suppository active INSERT 1 SUPPOSITORY RECTALLY TWICE DAILY Nickie Dumont ergocalciferol (vitamin D2) 1,250 mcg (50,000 unit) capsule active TAKE 1 CAPSULE BY MOUTH ONCE A WEEK Nickie Dumont potassium chloride 20 mEq tablet extended release active TAKE 1 TABLET BY MOUTH TWICE DAILY WITH FOOD Nickie Dumont metronidazole 500 mg tablet completed TAKE 1 TABLET BY MOUTH TWICE DAILY FOR 7 DAYS - Siena ALBERTO tramadol 50 mg tablet active Saqib Dorantes MD nitroglycerin 0.4 mg tablet, sublingual completed Place 1 tablet under tongue as needed for pain - Leroy Garcia RN prasugrel 10 mg tablet completed Take 1 tablet by mouth once a day - Saqib Dorantes MD Januvia 25 mg tablet completed Take 1 tablet by mouth once a day - Siena ALBERTO ProAir HFA 90 mcg/actuation HFA aerosol inhaler active Saqib Dorantes MD ranolazine 500 mg tablet extended release 12 hr completed - Saqib Dorantes MD glipizide 10 mg tablet completed Take 1 tablet by mouth twice a day - Siena ALBERTO isosorbide mononitrate 30 mg tablet extended release 24 hr active Saqib Dorantes MD furosemide 40 mg tablet completed - Saqib Dorantes MD cefdinir 300 mg capsule completed - Saqib Dorantes MD colchicine 0.6 mg tablet completed - Saqib Dorantes MD sertraline 25 mg tablet active Take 1 tablet by mouth once a day Nickie Dumont propranolol 80 mg capsule,extended release 24 hr completed - Saqib Dorantes MD famotidine 20 mg tablet completed - Saqib Dorantes MD sucralfate 1 gram tablet completed - Saqib Dorantes MD potassium chloride 20 mEq tablet,ER particles/crystal s completed Take 1 tablet by mouth once a day - Saqib Dorantes MD gabapentin 600 mg tablet completed - Saqib Dorantes MD atorvastatin 40 mg tablet completed - Saqib Dorantes MD SOCIAL HISTORY Date Observation Value Provider personal history of marijuana use no Saqib Dorantes MD drug use no Saqib Dorantes MD alcohol use no Saqib Dorantes MD smoking/tobacco cess ation, patient education and counseling yes Saqib Dorantes MD smoking history, tot al pack/day 1/2 Saqib Dorantes MD cigarette use yes Saqib Sierra smoking status Current every da y smoker Saqib Dorantes MD personal history of marijuana use no Saqib Dorantes MD drug use no Saqib Dorantes MD alcohol use no Saqib Dorantes MD smoking/tobacco cess ation, patient education and counseling yes Saqib Dorantes MD smoking history, tot al pack/day 1/2 Saqib Dorantes MD cigarette use yes Saqib Sierra smoking status Current every da y smoker Saqib Dorantes MD personal history of marijuana use no Siena Ventimiglia [facility] drug use no Siena Ventimig more MD UROLOGIST alcohol use no Siena Ventimig more [facility] smoking/tobacco cess ation, patient education and counseling yes Siena Ventimiglia [facility] smoking history, tot al pack/day 1/2 Siena Ventimiglia [facility] cigarette use yes Siena Ventimi glia [facility] smoking status Current every da y smoker Siena Ventimiglia [facility] smoking history, tot al pack/day 1/2 Saqib Dorantes MD cigarette use yes Saqib Sierra social history E&M S moking History: P atient currently smokes every day. P atient has been counseled to quit. Saqib Dorantes MD smoking/tobacco cess ation, patient education and counseling yes Saqib Dorantes MD smoking status Current every da y smoker Saqib Dorantes MD social history E&M S moking History: P atient currently smokes every day. P atient has been counseled to quit. Saqib Dorantes MD social history reviewed E&M revi ewed - no changes required Saqib Dorantes MD smoking status Current every da y smoker Fara Kalia smoking/tobacco cess ation, patient education and counseling yes Fara Motta smoking history, tot al pack/day 1/2 pack a day Farabetsy Motta cigarette use yes Fara Motta number of grandchildren Saqib Dorantes MD social history E&M S moking History: P atient currently smokes every day. P atient has been counseled to quit. Saqib Dorantes MD smoking/tobacco cess ation, patient education and counseling yes Saqib Dorantes MD social history reviewed E&M revi ewed - no changes required Saqib Dorantes MD smoking history, tot al pack/day 1/2 pack a day Zonia Costello cigarette use yes Zonia capps smoking status Current every da y smoker Zonia Costello smoking history, tot al pack/day 1/2 pack a day Saqib Dorantes MD cigarette use yes Saqib Sierra smoking status Current every da y smoker Saqib Dorantes MD social history E&M Smoking Histo ry: P atient currently smokes every day. Saqib Dorantes MD social history reviewed E&M revi ewed - no changes required Saqib Dorantes MD social history reviewed E&M revi ewed - no changes required Saqib Dorantes MD social history E&M S moking History: P atient currently smokes every day. Saqib Dorantes MD social history reviewed E&M revi ewed - no changes required Saqib Dorantes MD smoking history, tot al pack/day 1/2 pack a day Sonia Chinmay cigarette use yes Sonia Chinmay smoking status Current every da y smoker Sonia [place] FUNCTIONAL STATUS Date Observation Value Provider HRA, CV Assess/Plan, Angina (inactive) Management Plan continue current therapy Saqib Dorantes MD HRA, CV Assess/Plan, Angina (inactive) Management Plan continue current therapy Siena ALBERTO HRA, CV Assess/Plan, Angina (inactive) Management Plan continue current therapy Saqib Dorantes MD HRA, CV Assess/Plan, Angina (inactive) Management Plan continue current therapy Saqib Dorantes MD HRA, CV Assess/Plan, Angina (inactive) Management Plan continue current therapy Saqib Dorantes MD HRA, CV Assess/Plan, Angina (inactive) Management Plan continue current therapy Saqib Dorantes MD HRA, CV Assess/Plan, Angina (inactive) Management Plan continue current therapy Saqib Dorantes MD HRA, CV Assess/Plan, Angina (inactive) Management Plan continue current therapy Saqib Dorantes MD FAMILY HISTORY Family Member Condition Father MA male <55 Father Family History Coron jacki Heart Disease male < 55: INSURANCE PROVIDERS Payer name Policy type / Coverage type [place] red alliance party ID [id number] [employer]PLETE [employer]ARE [id number] (PPO C-SNP) [employer] insurance [place] [id number] [facility] Medicaid 0 [id number] ADVANCE DIRECTIVES Name Date DISCUSSED - NO DECISION MADE TREATMENT PLAN Date Name Performer [id number],C,T he patient is on a statin W Ill get bloof work frpm PCP H er updated medication list for this problem includes: Rosuvastatin 10 Mg Tablet (Rosuvastatin) ..... Take 1 tablet by mouth once daily for 90 days Saqib Dorantes MD [id number],S,T jaret ozempelvira, I am increasing her dose to 0.5mg weekly S he is taking this for weight loss and DM2 Saqib Dorantes MD [id number],C,on gabapentin 200 mcg TID Saqib Dorantes MD [id number],C,I s having chest discomfort at rest and not exertion, her CAD is stable for now and she has been instructed to contiinue medical therapy H er updated medication list for this problem includes: Nitroglycerin 0.4 Mg Tablet, Sublingual (Nitroglycerin) ..... Dissolve 1 tablet under the tongue as needed for chest pain every 5 minutes up to 3 times. if no relief call 911. Clopidogrel 75 Mg Tablet (Clopidogrel) ..... Take 1 tablet by mouth once daily Isosorbide Mononitrate 30 Mg Tablet Extended Release 24 Hr (Isosorbide mononitrate) Saqib Dorantes MD [id number],S,per nephro Us shawna Dorantes MD [id number],C,H as cut down smoking from 3 packs per day to 5 cigarettes per day Saqib Dorantes MD [id number],C,Will check an echo Saqib Dorantes MD [id number],S, H er updated medication list for this problem includes: Rosuvastatin 10 Mg Tablet (Rosuvastatin) ..... Take 1 tablet by mouth once daily for 90 days Saqib Dorantes MD [id number],S,N o chest pain. H er updated medication list for this problem includes: Nitroglycerin 0.4 Mg Tablet, Sublingual (Nitroglycerin) ..... Dissolve 1 tablet under the tongue as needed for chest pain every 5 minutes up to 3 times. if no relief call 911. Clopidogrel 75 Mg Tablet (Clopidogrel) ..... Take 1 tablet by mouth once daily Isosorbide Mononitrate 30 Mg Tablet Extended Release 24 Hr (Isosorbide mononitrate) Saqib Dorantes MD [id number],S, B P today: 117/76 P rior BP: 103/68 (06/25/2022) Saqib Dorantes MD [id number],S, F ollows nephrolgoy. Saqib Dorantes MD [id number],S, D own to 4 cigs/day F ull cessation advised Saqib Dorantes MD [id number],S, P er PCP Her updated medication list for this problem includes: Januvia 25 Mg Tablet (Sitagliptin phosphate) ..... Take 1 tablet by mouth once a day Glipizide 10 Mg Tablet (Glipizide) ..... Take 1 tablet by mouth twice a day Saqib Dorantes MD [id number],C, Her updated medication list for this problem includes: Rosuvastatin 10 Mg Tablet (Rosuvastatin) ..... Take 1 tablet by mouth once daily for 90 days aSqib Dorantes MD [id number],S, S he's having chest pain which sounds atypical for angina. Nitro hasn't helped. We talked about ECP and I asked her to consider it. H er stress test in November was negative for ischemia. The following medications were removed from the medication list: Prasugrel 10 Mg Tablet (Prasugrel) ..... Take 1 tablet by mouth once a day Ranolazine 500 Mg Tablet Extended Release 12 Hr (Ranolazine) Her updated medication list for this problem includes: Clopidogrel 75 Mg Tablet (Clopidogrel) ..... Take 1 tablet by mouth once daily Nitroglycerin 0.4 Mg Tablet, Sublingual (Nitroglycerin) ..... Place 1 tablet under tongue as needed for pain Isosorbide Mononitrate 30 Mg Tablet Extended Release 24 Hr (Isosorbide mononitrate) Saqib Doranets MD [id number],S, B P today: 103/68 P rior BP: 112/72 (12/25/2021) Saqib Dorantes MD [id number],C,Continue medi eligio therapy. Saqib Dorantes MD [id number],C,C hest pain is atypical and with the recent negative nuclear stess test I would not pursue invasive cardiac testing. Saqib Dorantes MD [id number],C, B P today: 112/72 P rior BP: 120/83 (11/27/2021) Saqib Dorantes MD [id number],C, H er updated medication list for this problem includes: Glipizide 10 Mg Tablet (Glipizide) ..... Take 1 tablet by mouth twice a day Januvia 50 Mg Tablet (Sitagliptin) ..... Take 1 tablet by mouth once a day Saqib Dorantes MD [id number],C, H er updated medication list for this problem includes: Atorvastatin 40 Mg Tablet (Atorvastatin) Saqib Dorantes MD [id number],C, B P today: 120/83 P rior BP: 112/80 (08/01/2021) Saqib Dorantes MD [id number],C, H as episodes of CP with intermittent SOB. Pt states she has low potassium whe she has these episodes. Saqib Dorantes MD [id number],C,H ad an episode of chest pain and sob recently, went to [facility] ED and said she was dx with blood clots. Need to obtain records as her medications do not align with dx. She states her nitro tablets did not work at the time because they were . Saqib Dorantes MD [id number],C,H as episodes of CP with intermittent SOB. Pt states she has low potassium whe she has these episodes. 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 Saqib Dorantes MD [id number],C,T he Patient was reencouraged to stop smoking. Saqib Dorantes MD [id number],C,Weight loss a dvised Saqib Dorantes MD [id number],C, H er updated medication list for this problem includes: Atorvastatin 40 Mg Tablet (Atorvastatin) Saqib Dorantes MD [id number],C, B P today: 112/80 Her updated medication list for this problem includes: Furosemide 40 Mg Tablet (Furosemide) Propranolol 80 Mg Capsule,extended Release 24 Hr (Propranolol) Saqib Dorantes MD Cardiology: S table. Continue medical therapy. w ith history of stents in past n o reports of new chest pain or SOB r emains on asa, plavix and statin U ses slntg as needed for pain, refill Rx sent Saqib Dorantes MD Cardiology:onur andino ast cath 2020 showed patent RCA stent n T his visit has been a part of the consistent, comprehensive, and ongoing management of the chronic medical condition(s) listed above for the patient. Saqib Dorantes MD Cardiology:well cont rolled BP today: 125/86 P rior BP: 105/78 (06/01/2024) Saqib Dorantes MD Cardiology:GFr 30 Saqib Peace D Cardiology:Echo uremarkable Karina Dorantes MD Cardiology:follows with nephrolo gy Saqib Dorantes MD Cardiology:Stable. C ontinue medical therapy. w ith history of stents in past n o reports of new chest pain or SOB r emains on asa, plavix and statin Saqib Dorantes MD Cardiology:This visi t has been a part of the consistent, comprehensive, and ongoing management of the chronic medical condition(s) listed above for the patient. o n no new medications for htn BP today: 105/78 P rior BP: 129/81 (12/02/2023) Saqib Dorantes MD Cardiology:improved, no recurren ce of her cp Saqib Dorantes MD Cardiology:cessation encouraged. [facility]iena Bonilla [facility] Cardiology:weight lo ss encouraged f olsusans with specialist down at [facility] Siena [facility]BER[facility] Cardiology:get labs from PCP r emains on statin T he following medications were removed from the medication list: Rosuvastatin 10 Mg Tablet (Rosuvastatin) ..... Take 1 tablet by mouth once daily for 90 days Her updated medication list for this problem includes: Rosuvastatin 40 Mg Tablet (Rosuvastatin) [facility] Cardiology:continue present medication regimen T he following medications were removed from the medication list: Glipizide 10 Mg Tablet (Glipizide) ..... Take 1 tablet by mouth twice a day Januvia 25 Mg Tablet (Sitagliptin phosphate) ..... Take 1 tablet by mouth once a day Her updated medication list for this problem includes: Farxiga 10 Mg Tablet (Dapagliflozin propanediol) [facility] Cardiology:follows with Dr. Arabella feliciano [facility] Cardiology:BP at a l 129/81 c ontinue present medication regimen [facility] Cardiology:with hist ory of stents in past n o reports of new chest pain or SOB r emains on asa, plavix and statin T he following medications were removed from the medication list: Clopidogrel 75 Mg Tablet (Clopidogrel) ..... Take 1 tablet by mouth once daily Her updated medication list for this problem includes: Clopidogrel 75 Mg Tablet (Clopidogrel) ..... Take 1 tablet by mouth once daily Nitroglycerin 0.4 Mg Tablet, Sublingual (Nitroglycerin) ..... Dissolve 1 tablet under the tongue as needed for chest pain every 5 minutes up to 3 times. if no relief call 911. Isosorbide Mononitrate 30 Mg Tablet Extended Release 24 Hr (Isosorbide mononitrate) Sienamarianela Bonilla [facility] Cardiology:The patie nt is on a statin W Ill get bloof work frpm PCP H er updated medication list for this problem includes: Rosuvastatin 10 Mg Tablet (Rosuvastatin) ..... Take 1 tablet by mouth once daily for 90 days Saqib Dorantes MD Cardiology:Taking oz empic, I am increasing her dose to 0.5mg weekly S he is taking this for weight loss and DM2 Saqib Dorantes MD Cardiology:on gabapentin 200 mcg TID Saqib Dorantes MD Cardiology:Is having chest discomfort at rest and not exertion, her CAD is stable for now and she has been instructed to contiinue medical therapy H er updated medication list for this problem includes: Nitroglycerin 0.4 Mg Tablet, Sublingual (Nitroglycerin) ..... Dissolve 1 tablet under the tongue as needed for chest pain every 5 minutes up to 3 times. if no relief call 911. Clopidogrel 75 Mg Tablet (Clopidogrel) ..... Take 1 tablet by mouth once daily Isosorbide Mononitrate 30 Mg Tablet Extended Release 24 Hr (Isosorbide mononitrate) Saqib Dorantes MD Cardiology:per nephro Saqib marie MD Cardiology:Has cut d own smoking from 3 packs per day to 5 cigarettes per day Saqib Dorantes MD Cardiology:Will check an echo Us shawna Dorantes MD Cardiology: H er updated medication list for this problem includes: Rosuvastatin 10 Mg Tablet (Rosuvastatin) ..... Take 1 tablet by mouth once daily for 90 days Saqib Dorantes MD Cardiology:No chest pain. H er updated medication list for this problem includes: Nitroglycerin 0.4 Mg Tablet, Sublingual (Nitroglycerin) ..... Dissolve 1 tablet under the tongue as needed for chest pain every 5 minutes up to 3 times. if no relief call 911. Clopidogrel 75 Mg Tablet (Clopidogrel) ..... Take 1 tablet by mouth once daily Isosorbide Mononitrate 30 Mg Tablet Extended Release 24 Hr (Isosorbide mononitrate) Saqib Dorantes MD Cardiology: B P today: 117/76 P rior BP: 103/68 (06/25/2022) Saqib Dorantes MD Cardiology: F ollows nephrolgoy. Saqib Dorantes MD Cardiology: D own to 4 cigs/day F ull cessation advised Saqib Dorantes MD Cardiology: P er PCP Her updated medication list for this problem includes: Januvia 25 Mg Tablet (Sitagliptin phosphate) ..... Take 1 tablet by mouth once a day Glipizide 10 Mg Tablet (Glipizide) ..... Take 1 tablet by mouth twice a day Saiqb Dorantes MD Cardiology: Her updated medication list for this problem includes: Rosuvastatin 10 Mg Tablet (Rosuvastatin) ..... Take 1 tablet by mouth once daily for 90 days Saqib Dorantes MD Cardiology: S he's having chest pain which sounds atypical for angina. Nitro hasn't helped. We talked about ECP and I asked her to consider it. H er stress test in November was negative for ischemia. The following medications were removed from the medication list: Prasugrel 10 Mg Tablet (Prasugrel) ..... Take 1 tablet by mouth once a day Ranolazine 500 Mg Tablet Extended Release 12 Hr (Ranolazine) Her updated medication list for this problem includes: Clopidogrel 75 Mg Tablet (Clopidogrel) ..... Take 1 tablet by mouth once daily Nitroglycerin 0.4 Mg Tablet, Sublingual (Nitroglycerin) ..... Place 1 tablet under tongue as needed for pain Isosorbide Mononitrate 30 Mg Tablet Extended Release 24 Hr (Isosorbide mononitrate) Saqib Dorantes MD Cardiology: B P today: 103/68 P rior BP: 112/72 (12/25/2021) Saqib Dorantes MD Cardiology:Continue medical ther apy. Saqib Dorantes MD Cardiology:Chest carmel n is atypical and with the recent negative nuclear stess test I would not pursue invasive cardiac testing. Saqib Dorantes MD Cardiology: B P today: 112/72 P rior BP: 120/83 (11/27/2021) Saqib Dorantes MD Cardiology: H er updated medication list for this problem includes: Glipizide 10 Mg Tablet (Glipizide) ..... Take 1 tablet by mouth twice a day Januvia 50 Mg Tablet (Sitagliptin) ..... Take 1 tablet by mouth once a day Saqib Dorantes MD Cardiology: H er updated medication list for this problem includes: Atorvastatin 40 Mg Tablet (Atorvastatin) Saqib Dorantes MD Cardiology: B P today: 120/83 P rior BP: 112/80 (08/01/2021) Saqib Dorantes MD Cardiology: H as episodes of CP with intermittent SOB. Pt states she has low potassium whe she has these episodes. Saqib Dorantes MD Cardiology:Had an ep isode of chest pain and sob recently, went to [facility] ED and said she was dx with blood clots. Need to obtain records as her medications do not align with dx. She states her nitro tablets did not work at the time because they were . Saqib Dorantes MD Cardiology:Has episo meaghan of CP with intermittent SOB. Pt states she has low potassium whe she has these episodes. 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 Saqib Dorantes MD Cardiology:The Patie nt was reencouraged to stop smoking. Saqib Dorantes MD Cardiology:Weight loss advised U james Dorantes MD Cardiology: H er updated medication list for this problem includes: Atorvastatin 40 Mg Tablet (Atorvastatin) Saqib Dorantes MD Cardiology: B P today: 112/80 Her updated medication list for this problem includes: Furosemide 40 Mg Tablet (Furosemide) Propranolol 80 Mg Capsule,extended Release 24 Hr (Propranolol) Saqib Dorantes MD Date Name Complete Echo Complete Echo Microalb/Creatinine Urine, Random COMPREHENSIVE METABO LIC PANEL, W/EGFR Stress Regadenoson Arterial Duplex Bi-L ower EX HISTORY OF PROCEDURES Procedure Date Procedure Name Provider Procedure Notes S tatus Complex e/m visit add on Saqib Dorantes MD completed Complex e/m visit add on Saqib Dorantes MD completed EKG Saqib Dorantes MD completed EKG Saqib oDrantes MD completed
--- OUTSIDE RECORDS SUMMARY | 2025-01-24 09:18 | XMS_ITS | Continuity of Care Document ---
Author Organization [facility] Address [address] [place] [address] [address] [place] [address] Phone Care Team Providers Care Manager Support Name Role Phone Kaba OD, Bertin Unavailable Unavailable Advance Directives Directive Yes / No Effective Date File Name No Information Encounters Encounter Description Practice Location Reason(s) For Visit Diagnoses Date Provider Providers Copied on Encounter [facility], [id number] [place] [address] [address], [place], [place], [id number], [place] tel:[phone] [facility] [place] No Information 0 [phone] 2 Kaba OD Bertin. [address] , [address], [place], [address], [place]. tel:[phone] Family History Family Member Type Diagnosis Age At Onset No Information Payers Payer name Insurance type Covered constitution party ID Authoriza tion(s) No Information Social [...]
--- OUTSIDE RECORDS SUMMARY | 2025-01-24 09:18 | XMS_ITS | Data Portability ---
Author Organization [place] [facility], Main Office Address [address] [place] [address] Care Team Providers Care Stamp Classifier Name Role Phone GEO SHEFFIELD Primary Care Provider GEO SHEFFIELD Referring Provider [phone] VIKRAM SARAVIA Group Product Manager MALISSA GALLO Hand Bookbinder BRENNA DORANTES Csr MAKEDA MADDOX Financial Services Sales Representative KISHA COHN Chaser Tar GALILEO CHEEMA Flat Examiner Assessment Encounter Date Assessment Date Assessment LastModified [...] the patient, lab orders provided, chart updated [email or web address] Not available 08/03/2024 11:24:05 09/14/2024 09/14/2024 This note is dictated and transcribed by [employer] Fluency Direct Software. Assembly Machine Set Up Mechanic variances may occur. Despite proofreading, typographical errors may occur. Occasional wrong-word or '[id number]' substitutions may have occurred due to the inherent limitations of voice recording. Read the chart carefully and recognize, using context, where substitutions have occurred. Not available 09/14/2024 09:51:12 09/28/2024 09/28/2024 Assessment: Rhinitis Nicotine smoke: 08/31 ppd 1982-present = 21 pack years Mild ACO Persistent [...] RLL density Chest CT 03/08/24 no abnormality [facility] diagnostic sleep study 01/04/23 sleep onset = 15 minutes, REM onset = 45.5 minutes, AHI = 5, supine AHI = 10, REM AHI = 12 [facility] titration sleep study 02/23/23 sleep onset = 10 minutes, REM onset = 86.5 minutes, ResMed medium AirFit F30 full face mask @ 7 cmH2O Nicotine cessation counseling provided. Burden for quitting include getting ready, getting support [...] in Quit For Life program Registering at [email or web address] Making a call to 3-793-QGWC-NOW ( ). A strong, clear, personalized message [...] failure or relapse. Patient can enroll in [facility]'s smoking cessation class through Lakesha Lenz [...] quit within the past 15 years. The [employer] (ACS) similarly recommends screening for [...] duration at 15 minutes. Keep EPR +[address] reporter. Keep humidifier level at 4. Keep tube [...] carrier. Patient will setup an appointment with [facility] for supplies and pressure adjustments. A major [...] This note is dictated and transcribed by [employer] Direct Software. Assembly Machine Set Up Mechanic variances may occur. Despite proofreading, typographical errors may occur. Occasional wrong-word or '[id number]' substitutions may have occurred due to the inherent limitations of voice recording. Read the chart carefully and recognize, using context, where substitutions have occurred. Not available 12/14/2024 10:52:21 Plan of Treatment Reminders Order Date Submit Date Provider Last Modified By Organization Details Last Modified Time Details Appointments Establish ed Patient 2024 10:30A M Makeda Maddox DPM Not available Not available Not available Any 2024 10:30A M Geo dinh MD Not available Not available Not available Any 2024 10:30A M Kisha Cohn MD Not available Not available Not available Lab vitamin D, 25-hydrox y, total, serum [email or web address] (Lab), [address] [place], [address], 11/16/2024 18:39:10 glycohemo globin, total, blood [email or web address] (Lab), [address] [place], [address], 11/16/2024 18:39:09 microalbu min, urine [address] (Lab), [address] [place], [address], 11/16/2024 18:39:09 lipid panel, serum [address] (Lab), [address] [place], [address], 11/16/2024 18:39:09 CBC w/ auto diff [address] (Lab), [address] [place], [address], 11/16/2024 18:39:09 TSH, serum or plasma [address] (Lab), [address] [place], [address], 11/16/2024 18:39:09 CMP, serum or plasma [address] (Lab), [address] [place], [address], 11/16/2024 18:39:09 lipid panel, serum [address] (Lab), [address] [place], [address], 08/03/2024 11:21:55 CBC w/ auto diff [address] (Lab), [address] [place], [address], 08/03/2024 11:21:55 TSH, serum or plasma [address] (Lab), [address] [place], [address], 01/04/2025 14:06:47 CMP, serum or plasma [address] (Lab), [address] [place], [address], 08/03/2024 11:21:56 vitamin D, 25-hydrox y, total, serum [address] (Lab), [address] [place], [address], 08/03/2024 11:21:56 rapid flu (A+B) [address] [facility], [address] [place], [address], 08/17/2024 09:07:34 rapid strep group A, throat [address] [facility], [address] [place], [address], 08/17/2024 09:07:34 SARS CoV 2 RNA (COVID-19 ), QL, book agent-PCR, respirato ry specimen [address] [facility], [address] [place], [address], 08/17/2024 09:07:34 glycohemo globin, total, blood [address] (Lab), [address] [place], [address], 01/04/2025 14:06:47 microalbu min, urine [address] (Lab), [address] [place], [address], 08/03/2024 11:21:55 Referral diabetic ophthalmo logy referral - Please call patient to schedule an appointme nt. Thank you. 2024 025 MIT[facility]LL [facility], [address], [place], [address], 11/16/2024 16:00:55 podiatris t referral - Please call patient to schedule an appointme nt. Thank you. 2024 025 CARLI Maddox DPM, [address] [facility], [address], [place], [address], 11/16/2024 16:22:29 endocrino logy referral - Please call patient to schedule an appointme nt. Thank you. 2024 025 [place], [address] , [place], [address], 11/16/2024 16:45:26 cardiolog ist referral - Please call patient to schedule an appointme nt. Thank you. 2024 025 [place], [address] [address] , [address], [place], [address], 11/16/2024 16:20:33 hepatolog ist referral 2023 024 [email or web address] Irma Bay MD, [address] [facility], [address], [place], [address], 08/03/2024 20:04:41 diabetic ophthalmo logy referral - Please call patient to schedule. 2023 024 [email or web address] [facility], [facility], [address], [place], [address], 11/07/2024 09:23:51 podiatris t referral 2023 024 [email or web address] Makeda Maddox DPM, [address] [facility], [address], [place], [address], 08/03/2024 20:02:59 endocrino logy referral 2023 024 [place], [address] [facility], [place], [address], 08/03/2024 20:04:03 Procedures None recorded. Surgeries None recorded. Imaging XR, foot, 3 or more view - pod to read 2024 025 [email or web address] [facility] ([facility]), [address] [place], [address], 01/11/2025 08:21:28 MAMMO, screening , digital, bilateral 2024 025 [facility], [address], [address], [place], [address], 11/16/2024 11:40:43 DEXA, axial skeleton [address] ([facility]), [address] [place], [address], 11/16/2024 11:23:38 LDCT, chest, for lung cancer screening 2024 025 [email or web address] Not available 09/28/2024 12:30:31 XR, foot, 3 or more view 2024 025 [email or web address] [facility] [place], [address] [facility] [address], [place], [address], 09/14/2024 09:53:09 MAMMO, screening , digital, bilateral [address] ([facility]), [address] [place], [address], 08/03/2024 19:33:04 DEXA, axial skeleton 2023 024 [email or web address] [facility] ([facility]), [address] [place], [address], 08/03/2024 19:31:31 Medication Orders albuterol sulfate HFA 90 mcg/actua tion aerosol inhaler 2024 025 [facility], [address] [place] [address], [address], 09/28/2024 12:24:16 Breo Ellipta 100 mcg-25 mcg/dose powder for inhalatio n 2024 025 [facility], [address] [place] [address], [address], 09/28/2024 12:24:18 Augmentin 875 mg-125 mg tablet [address] [facility], [address] [place] [address], [address], 09/12/2024 18:14:33 Zyrtec 10 mg tablet 2023 024 [facility], [address] [place] [address], [address], 08/03/2024 11:25:32 Flonase Allergy Relief 50 mcg/actua tion nasal spray,elmo pension 2023 024 [place] [address], [address] [place] [address], [address], 08/03/2024 11:25:27 Patient TargetsNo targets recorded. Patient InstructionsNo instructions recorded. Reason for Referral Diabetic Ophthalmology Refer ral for Type 2 diabetes mellitus without complication Please call patient to schedule. Referring Physician: Geo Sheffield, Internal Medicine, Encounter Date: 08/03/2024 Financial Services Sales Representative Referral for Type 2 diabetes mellitus without complication Referring Physician: Geo Sheffield, Internal Medicine, Encounter Date: 08/03/[address] eatotic liver disease Referring Physician: Polina Perez Medicine, Encounter Date: 08/03/2024 Endocrinology Referral for T ype 2 diabetes mellitus without complication Referring Physician: Geo Sheffield Internal Medicine, Encounter Date: 08/03/2024 Diabetic Ophthalmology Refer ral for Type 2 diabetes mellitus without complication Please call patient to schedule an appointment. Thank you. Referring Physician: Geo Sheffield Internal Medicine, Encounter Date: 11/16/2024 Financial Services Sales Representative Referral for Type 2 diabetes mellitus without complication Please call patient to schedule an appointment. Thank you. Referring Physician: Geo Sheffield Internal Medicine, Encounter Date: 11/16/2024 Endocrinology Referral for T ype 2 diabetes mellitus without complication Please call patient to schedule an appointment. Thank you. Referring Physician: Polina Perez Medicine, Encounter Date: 11/16/2024 Csr Referral for Co ronary arteriosclerosis Please call patient to schedule an appointment. Thank you. Referring Physician: Geo Sheffield [facility] Medicine, Encounter Date: 11/16/2024 Results Created Date Observation Date Name Description Value Unit Range Abnormal Flag Note LastModifiedBy Organization Detail LastModifiedTime 09/14/19 25 XR, foot, 3 or more view No observ ation record ed. [email or web address] [facility] [place] [address] [facility] [address], [place], [address], 09/14/2024 09:53:07 Result Notes None recorded. Problems Name Problem SNOMED Code Status Onset Date Resolution Date Notes Provider Name and Address Organization Details Recorded Time Mixed anxiety and depressive disorder 510534654 Active 2021 Not Available [facility] 4 05:38:43 ACTH deficiency 554125424 Active 2021 Not Available [facility] 4 05:38:43 Diabetic peripheral neuropathy 501631981 Active 2021 Not Available [facility] 4 05:38:43 Vitamin D-dependent rickets 26899663 Active 2021 Not Available [facility] 4 05:38:43 Coronary arteriosclero sis 04789066 Active 2022 Not Available [facility] 4 05:38:43 Chronic kidney disease 157938562 Active 2022 Not Available [facility] 4 05:38:43 Cervical radiculopathy 44833838 Active 2022 Not Available [facility] 4 05:38:43 Hyperlipidemi a 17345592 Active 2022 Not Available [facility] 4 05:38:43 Mild persistent asthma 351557975 Active 2022 Not Available [facility] 4 05:38:43 Neuropathy 941512919 Active 2022 Not Available [facility] 4 05:38:43 Non-alcoholic fatty liver 591179043 Active 2022 Not Available [facility] 4 05:38:43 Chronic obstructive pulmonary disease 20790103 Active 2023 Geo meyer MD [address], [address], [place], [address] , [employer] 4 23:23:38 Obstructive sleep apnea syndrome 72633905 Active 2023 Geo meyer MD [address], [address], [place], [address] , [employer] [facility] 4 23:23:38 Cigarette smoker 68892640 Active 2023 Geo meyer MD [address], [address], [place], [address] , [employer] [facility] [employer] [employer] [facility] 4 23:23:38 Smoker 23722140 Active 2023 Kisha Cohn MD [address], [address], [place], [address] , [place] [facility] [facility] 4 10:32:47 Bunion 313802521 Active 2023 Makeda Maddox DPM [address], [address], [place], [address] , [employer] [place] [facility] 4 12:35:20 Closed fracture proximal phalanx, toe 019205147 Active 2023 Makeda Maddox DPM [address], [address], [place], [address] , [employer] [place] [employer] [employer] [facility] [employer] 4 10:31:48 Dystrophia unguium 95354163 Active 2024 Makeda Maddox DPM [address], [address], [place], [address] , [place] [employer] 5 09:53:35 Sleep apnea 96284722 Active 2024 Kisha Cohn MD [address], [address], [place], [address] , [employer] [facility] [employer] [facility] [employer] 5 12:14:46 Type 2 diabetes mellitus without complication 903983670 Active 2024 Geo meyer MD [address], [address], [place], [address] , [employer] [facility] [employer] 5 09:20:28 Steatotic liver disease 944231400 Active 2024 Geo meyer MD [address], [address], [place], [address] , [place] [facility] [employer] 5 09:22:04 Asthma 231519281 Active 2024 Geo meyer MD [address], [address], [place], [address] , [place] [facility] 5 10:24:19 Bunion 978196331 Active 2024 Makeda Maddox DPM [address], [address], [place], [address] , [employer] [facility] [employer] [facility] 5 10:52:17 Diabetes mellitus 69698391 Active 2024 Makeda Maddox DPM [address], [address], [place], [address] , [facility] [employer] [facility] 5 10:52:25 Notes:PFT 01/18/19 FEV1 1.97 L [...] Recorded Time 12/15/19 25 Nail Debridement completed Makeda Maddox DPM [address], [address], [place], [address], [facility] [employer] [facility] 12/14/2024 10:51:36 09/14/19 25 Nail Debridement completed Makeda Maddox DPM [address], [address], [place], [address], [employer] [facility] [employer] [facility] 09/14/2024 09:47:55 05/23/20 24 Suture Removal completed Makeda Maddox DPM [address], [place], [address], [facility] [employer] [facility] 05/23/2024 10:30:20 04/27/20 24 excision of bunion completed SURI Hernandez [place] [facility] [employer] [facility] 08/03/2024 10:38:47 03/30/20 24 Medicare Wellness CPT Code, subsequent completed Thang Thomson LPN [place] [facility] [employer] [facility] 03/29/2024 12:34:39 03/30/20 24 Medicare Wellness CPT Code, Welcome completed Thang Thomson LPN [place] [facility] [employer] [facility] 03/29/2024 13:24:26 01/18/20 24 Nail Debridement completed Makeda Maddox DPM [address], [address], [place], [address], [facility] [employer] [facility] 01/18/2024 12:33:53 01/18/20 24 Callus Debridement 2-4 completed Makeda Maddox DPM [address], [address], [place], [address], [facility] [employer] [facility] 01/18/2024 12:34:49 12/08/19 24 Egd vol adjmt bariatric balo completed Thang Thomson LPN [place] [facility] [employer] [facility] 12/16/2023 10:44:57 10/19/19 24 Nail Debridement completed Makeda Maddox DPM [address], [address], [place], [address], [facility] [employer] [facility] 10/21/2023 08:52:38 10/19/19 24 Callus Debridement 2-4 completed Makeda Maddox DPM [address], [address], [place], [address], [facility] [employer] [facility] 10/21/2023 08:52:17 03/18/20 23 Nail Debridement completed Makeda Maddox DPM [address], [address], [place], [address], [facility] [employer] [facility] 03/18/2023 17:33:20 03/18/20 23 Callus Debridement 2-4 completed Makeda Maddox DPM [address], [address], [place], [address], [facility] [employer] [facility] 03/18/2023 17:33:22 01/29/20 23 Medicare Wellness CPT Code, Initial completed Tawana Munson RN [facility] [employer] [facility] 01/28/2023 12:03:18 Cardiac Stent Placement completed Not Available [facility] 10/28/2022 10:42:46 Heart Catheterization completed Not Available [facility] 10/28/2022 10:42:46 Gallbladder Surgery completed Lissy HUFF [facility] 03/18/2023 17:37:24 Hysterectomy completed Lissy HUFF [facility] [employer] [facility] 03/18/2023 17:37:31 Imaging Results None recorded. Procedure Notes None recorded. Medical Equipment None Reported. Allergies No known drug allergies Medications Name Sig Start Date Stop Date Status Note LastModified by Organization Details LastModified Time clever choice comfort ez insulin pe n needles [id number] 31g x 8 mm [facility] 03/26 completed Not Available Not Available Not Available sure comfort pen needles 31gx5/16 (8mm) 31g x 8 mm [facility] 03/05 completed Not Available Not Available Not [...] by oral route for 7 days. active Not Available Not Available No t Available clopidogr el 75 mg tablet TAKE 1 TABLET BY MOUTH ONCE DAILY active Not Available Not Available No t Available Vitamin C 500 mg chewable tablet Take 1 tablet every day by oral route. active Not Available Not Available No t Available tramadol 50 mg tablet TK 1T BY MOUTH EVERY 6HRS PRN FOR MILD PAIN 10/28 completed Not Available Not Available Not Available glimepiri de 1 mg tablet TAKE 1 TABLET BY MOUTH TWICE DAILY WITH BREAKFAS T active Not Available Not Available No t Available nadolol 20 mg tablet 07/31 completed Not Available Not Available Not Available potassium chloride ER 20 mEq tablet,ex tended release(p art/cryst ) TAKE 1 TABLET BY MOUTH ONCE DAILY active Not Available Not Available No t Available famotidin e 20 mg tablet 07/31 completed Not Available Not Available Not Available sodium bicarbona te 650 mg tablet TAKE 1 TABLET BY MOUTH ONCE DAILY 01/04 completed Not Available Not Available Not Available pantopraz ole 40 mg tablet,de layed release TAKE 1 TABLET BY MOUTH TWICE DAILY FOR 14 DAYS IT IS IMPORTAN T THAT YOU SEPARATE THIS MED FROM PLAVIX( EART MEDICINE )AT LEAST 4 HOURS 03/30 completed Not Available Not Available Not Available cyanocoba mulu (vit B-12) 1,000 mcg/mL injection solution INJECT 1 ML INTRAMUS CULARLY ONCE A WEEK INJECT 1 ML EVERY WEEK FOR 4 WEEKS AND THEN EVERY 2 WEEKS 07/02 completed Not Available Not Available Not Available propranol ol ER 80 mg capsule,2 4 hr,extend ed release 07/31 completed Not Available Not Available Not Available nitroglyc ricardo 0.4 mg sublingua l tablet DISSOLVE ONE TABLET UNDER THE TONGUE EVERY 5 MINUTES NEEDED FOR CHEST PAIN. DO NOT EXCEED A TOTAL OF 3 DOSES IN 15 MINUTES active Not Available Not Available No t Available docusate sodium 100 mg capsule TAKE 1 CAPSULE BY MOUTH ONCE DAILY 01/04 completed Not Available Not Available Not Available sertralin e 25 mg tablet TAKE 1 TABLET BY MOUTH EVERY DAY *NO ALCOHOL, DRIVING, OR WITH SEDATING MEDICATI ONS* *NOTIFY IF ANY CHANGE IN MOOD OR BEHAVIOR * 09/10 completed Not Available Not Available Not Available gabapenti n 100 mg capsule TAKE TWO (2) CAPSULES BY MOUTH THREE TIMES PER DAY active Not Available Not Available No t Available ergocalci ferol (vitamin D2) 1,250 mcg (50,000 unit) capsule TAKE 1 CAPSULE BY MOUTH ONCE A WEEK active Not Available Not Available No t Available lorazepam 1 mg tablet 07/31 completed Not Available Not Available Not Available methylpre dnisolone 4 mg tablets in a dose pack 07/31 completed Not Available Not Available Not Available albuterol sulfate HFA 90 mcg/actua tion aerosol inhaler INHALE 1 PUFF BY MOUTH EVERY 4 HOURS NEEDED active Not Available Not Available No t Available colchicin e 0.6 mg tablet TK 1T PO BID 07/02 completed stopped by cardio Not Available Not Available Not Available propranol ol 20 mg tablet TAKE 1 TABLET BY MOUTH TWICE DAILY 07/02 completed ran out of refills- never got refilled Not Available Not Available Not Available cefdinir 300 mg capsule 07/31 completed Not Available Not Available Not Available fluticaso ne propionat e 50 mcg/actua tion nasal spray,elmo pension Alpine 1 spray every day by intranas al route for 90 days. active Not Available Not Available No t Available sertralin e 50 mg tablet TAKE 1 TABLET BY MOUTH ONCE DAILY 03/30 completed Not Available Not Available Not Available calcitrio l 0.25 mcg capsule TAKE 1 CAPSULE BY MOUTH ONCE DAILY active Not Available Not Available No t Available amoxicill in 875 mg-potass ium clavulana te 125 mg tablet Take 1 tablet every 12 hours by oral route for 7 days. 09/12 completed Not Available Not Available Not Available amoxicill in 500 mg-potass ium clavulana te 125 mg tablet TAKE 1 TABLET BY MOUTH EVERY 12 HOURS FOR 7 DAYS 08/03 completed Not Available Not Available Not Available Vitamin E D-Alpha 268 mg (400 unit) capsule Take 1 capsule every day by oral route. 02/24 completed Not Available Not Available Not Available rosuvasta tin 10 mg tablet TAKE 1 TABLET BY MOUTH EVERY DAY 07/12 completed Not Available Not Available Not Available rosuvasta tin 40 mg tablet TAKE 1 TABLET BY MOUTH ONCE DAILY active Not Available Not Available No t Available lancing device USE WITH LANCETS TO TEST BLOOD GLUCOSE 12/08 completed Not Available Not Available Not Available nitrofura ntoin monohydra te/macroc rystals 100 mg capsule TAKE 1 CAPSULE BY MOUTH EVERY 12 HOURS FOR 10 DAYS 12/30 completed Not Available Not Available Not Available Flovent HFA 44 mcg/actua tion aerosol inhaler Inhale 2 puffs twice a day by inhalati on route. 01/18 completed Not Available Not Available Not Available Vitamin C 04/19 completed Not Available Not Available Not Available potassium acetate TK 1T PO BID 07/31 completed Not Available Not Available Not Available vitamin E 03/05 completed Not Available Not Available Not Available Ranexa 500 mg tablet,ex tended release TAKE 1 TABLET BY MOUTH TWICE DAILY 10/29 completed Not Available Not Available Not Available Januvia 25 mg tablet TAKE 1 TABLET BY MOUTH ONCE DAILY 04/19 completed Not Available Not Available Not Available Januvia 50 mg tablet TAKE 1 TABLET BY MOUTH ONCE DAILY 03/05 completed Not Available Not Available Not Available Januvia 100 mg tablet TAKE 1 TABLET (100 MG TOTAL) BY MOUTH 1 (ONE) TIME EACH DAY IN THE MORNING active Not Available Not Available No t Available Sure Comfort Pen Needle 31 gauge x 5/16 Use with Toujeo pen and Ozempic pen 09/12 completed Not Available Not Available Not Available Symbicort 160 mcg-4.5 mcg/actua tion HFA aerosol inhaler INHALE TWO (2) PUFFS BY MOUTH TWICE A DAY 03/30 completed Not Available Not Available Not Available Lantus Solostar U-100 Insulin 100 unit/mL (3 mL) subcutane ous pen active Not Available Not Available Not Available Humalog KwikPen (U-100) Insulin 100 unit/mL subcutane ous INJECT UP TO 10 UNITS SUBCUTAN EOUSLY WITH MEALS 09/16 completed Not Available Not Available Not Available prasugrel HCl 10 mg tablet TAKE 1 TABLET BY MOUTH ONCE DAILY 10/29 completed Not Available Not Available Not Available Centrum Complete 09/10 completed Not Available Not Available Not Available B12 03/05 completed Not Available Not Available Not Available Vitamin D2 06/10 completed Not Available Not Available Not Available lancets 30 gauge USE TO TEST BLOOD GLUCOSE 3 TO 4 TIMES DAILY 12/08 completed Not Available Not Available Not Available Easy Touch Twist Lancets 33 gauge USE TO TEST SUGAR 3-4 TIMES DAILY 09/10 completed Not Available Not Available Not Available Breo Ellipta 100 mcg-25 mcg/dose powder for inhalatio n INHALE 1 PUFF BY MOUTH EVERY DAY active Not Available Not Available No t Available Farxiga 10 mg tablet TAKE 1 TABLET BY MOUTH ONCE DAILY active Not Available Not Available No t Available Farxiga 5 mg tablet Take 1 tablet every day by oral route for 7 days. active Not Available Not Available No t Available potassium chloride ER 20 mEq tablet,ex tended release TAKE 1 TABLET BY MOUTH TWICE DAILY WITH FOOD 08/03 completed Not Available Not Available Not Available True Metrix Glucose Test Strip USE TO TEST BLOOD SUGAR 3-4 TIMES DAILY 09/10 completed Not Available Not Available Not Available Roxy MimsoStar U-300 Insulin 300 unit/mL (1.5 mL) subcutane ous pen INJECT 20MG SUBCUTAN EOUSLY AT BEDTIME active Not Available Not Available No t Available Tresiba FlexTouch U-100 insulin 100 unit/mL (3 mL) subcutane ous pen Inject 5 units every day by subcutan eous route in the evening for 30 days. active Not Available Not Available No t Available Procto-Me d HC 2.5 % topical cream perineal applicato r APPLY A THIN LAYER TO THE AFFECTED AREA(S) BY TOPICAL ROUTE 2-4 TIMES DAILY 12/30 completed Not Available Not Available Not Available TRUEplus Pen Needle 32 gauge x 32 USE TO INJECT TRESIBA DAILY AT BEDTIME FOR 90 DAYS 12/30 completed Not Available Not Available Not Available Ozempic 0.25 mg or 0.5 mg (2 mg/1.5 mL) subcutane ous pen injector Inject 0.5 mg every week by subcutan eous route at dinner for 90 days. 01/05 completed Not Available Not Available Not Available OneTouch Ultra2 Meter USE TO TEST BLOOD GLUCOSE 08/19 completed Not Available Not Available Not Available Baqsimi 3 mg/actuat ion nasal spray USE 3MG INTO NOSTRIL ONCE NEEDED FOR HYPOGLYC EMIA. USE A SINGLE DOSE. active Not Available Not Available No t Available Gvoke HypoPen 2-Pack 1 mg/0.2 mL subcutane ous auto-inje ctor INJECT 1MG SUBCUTAN EOUSLY NEEDED 09/16 completed Not Available Not Available Not Available FreeStyle Shital 2 Sensor kit CHANGE SENSOR EVERY 14 DAYS 09/12 completed Not Available Not Available Not Available FreeStyle Shital 2 [place] USE DIRECTED 01/05 completed Not Available Not Available Not Available Ozempic 1 mg/dose (4 mg/3 mL) subcutane ous pen injector 03/[address] gallo Not Available Not Available Not Available Semglee (insulin glargine- yfgn) Pen 100 unit/mL (3 mL) subcutane ous INJECT UP TO 10 UNITS ONCE A DAY. CARLEE Danielle TO DIRECTIO NS PROVIDED IN OFFICE 10/29 completed Not Available Not Available Not Available Semglee (insulin glargine- yfgn) 100 unit/mL subcutane ous solution Inject 10 mL every day by subcutan eous route at bedtime. 04/19 completed Not Available Not Available Not Available Ozempic 2 mg/dose (8 mg/3 mL) subcutane ous pen injector INJECT 2MG SUBCUTAN EOUSLY EVERY WEEK active Not Available Not Available No t Available Ozempic 0.25 mg or 0.5 mg (2 mg/3 mL) subcutane ous pen injector INJECT 0.5MG SUBCUTAN EOUSLY EVERY WEEK AT DINNER 08/03 completed Not Available Not Available Not Available FreeStyle Shital 3 [place] USE DIRECTED 01/04 completed Not Available Not Available Not Available FreeStyle Shital 3 Plus Sensor device USE DIRECTED 01/04 completed Not Available Not Available Not Available Vitals Date Recorded Body height Body mass index (BMI) Body weight Heart rate Respiratory rate Oxygen saturation Oxygen saturation in Arterial blood by Pulse oximetry Systolic blood pressure Diastolic blood pressure Provider Name and Address Organization Details Last Updated DateTime 5 157.48 cm 34.6 kg/m2 86164.9 6 g 81 /min 14 /min 98 % 98 % 113 mm[Hg] 81 mm[Hg] Lissy Marsh [employer] [facility] 5 09:28:08 Date Recorded Heart rate Respiratory rate Provider N darrius and Address Organization Details Last Updated DateTime 09/28/2024 77 /min 15 /min Kisha Cohn MD [address] [place] [address] [address], [place], [address], [place] [facility] 09/28/2024 12:29:06 Date Recorded Body height Body mass index (BMI) Body weight Body temperature Heart rate Oxygen saturation Oxygen saturation in Arterial blood by Pulse oximetry Systolic blood pressure Diastolic blood pressure Provider Name and Address Organization Details Last Updated DateTime 5 157.48 cm 32.7 kg/m2 16241.0 3 g 98.2 [degF] 77 /min 95 % 95 % 124 mm[Hg] 68 mm[Hg] Nickie Reynolds [place] [facility] 5 11:37:43 Date Recorded Body height Body mass index (BMI) Body weight Body temperature Heart rate Systolic blood pressure Diastolic blood pressure Provider Name and Address Organization Details Last Updated DateTime 5 157.48 cm 34 kg/m2 54209.1 8 g 97.7 [degF] 78 /min 120 mm[Hg] 80 mm[Hg] SURI Hernandez [facility] [employer] [facility] 5 10:04:41 Date Recorded Body height Body mass index (BMI) Body weight Heart rate Respiratory rate Oxygen saturation Oxygen saturation in Arterial blood by Pulse oximetry Systolic blood pressure Diastolic blood pressure Provider Name and Address Organization Details Last Updated DateTime 5 157.48 cm 34 kg/m2 64822.1 8 g 79 /min 14 /min 98 % 98 % 106 mm[Hg] 66 mm[Hg] Lissy Marsh [facility] [employer] [facility] 5 10:07:25 Date Recorded Body height Body mass index (BMI) Body weight Body temperature Heart rate Systolic blood pressure Diastolic blood pressure Provider Name and Address Organization Details Last Updated DateTime 4 157.48 cm 34.6 kg/m2 34379.9 6 g 97.7 [degF] 84 /min 110 mm[Hg] 66 mm[Hg] Lyudmila Babcock Misbah [facility] [employer] [facility] 4 10:41:13 Social History Question Answer Notes LastModified by Organizat ion Details LastModified Time Tobacco Smoking Status Never Smoker Nickie Reynolds MA [facility] [employer] [facility] 09/28/2024 11:35:16 Do You Have An Advance Directive? No MIGRATION.[id number] Information not available 10/28/2022 Do You Wear A Helmet When Biking? No Does Not Bike [email or web address] Information not available 03/30/2024 Is Blood Transfusion Acceptable In An Emergency? Yes [email or web address] Information not available 03/30/2024 What Is Your Level Of Caffeine Consumption? Moderate MIGRATION.01853 06962 Information not available 10/28/2022 What Is Your Code Status? Full Code [email or web address] Information not available 03/30/2024 In The 14 Days Before Symptom Onset, Have You Had Close Contact With A Laboratory-confir med COVID-19 While That Case Was Ill? No MIGRATION.56853 50586 Information not available 10/28/2022 In The 14 Days Before Symptom Onset, Have You Had Close Contact With A Person Who Is Under Investigation For COVID-19 While That Person Was Ill? No MIGRATION.76372 91278 Information not available 10/28/2022 What Type Of Diet Are You Following? REGULAR Tries Best To Eat Better [email or web address] Information not available 03/30/2024 What Is The Highest Grade Or Level Of School You Have Completed Or The Highest Degree You Have Received? [id number] MIGRATION.33009 73761 Information not available 10/28/2022 Do You Have An Electrostatic Air Filter? No MIGRATION.86084 82657 Information not available 10/28/2022 How Many Days Of Moderate To Strenuous Exercise, Like A Brisk Walk, Did You Do In The Last 7 Days? -1 Information not available 03/30/2024 Have There Been Any Changes To Your Family Or Social Situation? Yes Lives With Daughter Past 5 Months Information not available 03/30/2024 What Is The Fluoride Status Of Your Home? Unknown MIGRATION.31764 19496 Information not available 10/28/2022 Are There Any Guns Present In Your Home? No MIGRATION.53633 76334 Information not available 10/28/2022 Do You Have A Humidifier? Yes MIGRATION.30683 14818 Information not available 10/28/2022 Do You Use Insect Repellent Routinely? No MIGRATION.32460 31125 Information not available 10/28/2022 Where Do You Live? [place] MIGRATION.96276 48877 Information not available 10/28/2022 Presence Of Domestic Violence No [email or web address] Information no t available 03/30/2024 Guns Present In The Home? No [email or web address] Information not available 03/30/2024 Are You Blind Or Do Yo Have Difficulty Seeing? No [email or web address] Information not available 03/30/2024 Are You Deaf Or Do You Have Serious Difficulty Hearing? No Information not available 03/30/2024 General Stress Level? Moderate [email or web address] Information not available 03/30/2024 Live Alone Of With Others? With Others [email or web address] Information not available 03/30/2024 Do You Have A Medical Power Of Supervisor [employer]? No MIGRATION.20158 80782 Information not available 10/28/2022 Do You Have Moisture Problems In Your Home? No MIGRATION.82629 90760 Information not available 10/28/2022 What Was The Date Of Your Most Recent Tobacco Screening? 11/16/2024 [email or web address] Information not available 11/16/2024 How Many Children Do You Have? 2 [email or web address] Information not available 03/30/2024 What Is Your Current Pack Years? 10-19packyea rs Information not available 03/30/2024 Do You Have Any Pets? No Information not available 09/28/2024 Do You Use Protection During Sex? No [email or web address] Information not available 03/30/2024 What Is Your Relationship Status? MIGRATION.30215 98191 Information not available 10/28/2022 Do You Use Your Seat Belt Or Car Seat Routinely? Yes MIGRATION.57330 57919 Information not available 10/28/2022 Are You Sexually Active? Yes [email or web address] Information not available 03/30/2024 Do You Have Smoke And Carbon Monoxide Detectors In Your Home? Yes MIGRATION.33111 76718 Information not available 10/28/2022 At What Age Did You Start Smoking Tobacco? 17 [email or web address] Information not available 03/30/2024 Are You Passively Exposed To Smoke? Yes MIGRATION.53714 80040 Information not available 10/28/2022 Are There Any Smokers In Your House? Yes MIGRATION.62412 52978 Information not available 10/28/2022 How Much Tobacco Do You Smoke? No Information not available 09/28/2024 What Types Of Sporting Activities Do You Participate In? None MIGRATION.62341 10842 Information not available 10/28/2022 Do You Use Sunscreen Routinely? No MIGRATION.29269 36226 Information not available 10/28/2022 Has Tobacco Cessation Counseling Been Provided? No Information not available 03/18/2023 How Many Years Have You Smoked Tobacco? 41 [email or web address] Information not available 03/30/2024 Have You Recently Traveled Abroad? No MIGRATION.23911 63772 Information not available 10/28/2022 Do You Have Any Dietary Restrictions? No MIGRATION.65631 15405 Information not available 10/28/2022 Sex: Female Functional Status Question Answer Note LastModified by Organizat ion Details LastModified Time Do you use any illicit or recreational drugs? No [id number] Information not available 10/28/2022 Do you or have you ever used any other forms of tobacco or nicotine? No MIGRATION.[id number] 35 Information not available 10/28/2022 What is your level of alcohol consumption? None MIGRATION.[id number] 35 Information not available 10/28/2022 Are you currently employed? No [email or web address] Information not available 03/30/2024 What is your exercise level? None [email or web address] Information not available 03/30/2024 Mental Status Question Answer Note LastModified by Organization D etails LastModified Time Do you feel stressed (tense, restless, nervous, or anxious, or unable to sleep at night)? [id number] [email or web address] Information not available 03/30/2024 Family History Relationship Description Onset Age of this Age Resolved Age Notes LastModified by Organization Details LastModified Time Father Diabetes mellitus [id number] Not available 10/28/2022 10:42:50 Father Family history of stroke [email or web address] Not available 2022 17:35:53 Father Hypertensive disorder [email or web address] Not available 2022 17:36:16 Father Heart disease [email or web address] Not available 2022 17:36:26 Father Family history of malignant neoplasm [email or web address] Not available 2022 17:36:34 Mother Arthritis Not available 03/18/2023 17:36:04 Mother Hypertensive disorder [email or web address] Not available 2022 17:36:16 Medical History Condition Response NERVE DISEASE Y BLINDNESS N RHEUMATIC FEVER N KIDNEY STONES N BLADDER PROBLEMS N MRSA N OTHER # 1 N POLIO N LUNG DISEASE/DISORDER Y HISTORY OF DRUG ABUSE N COPD Y RADIATION / CHEMOTHERAPY N Other # 2 N BLOOD DISEASES N EAR OR HEARING PROBLEMS Y MUMPS N SHINGLES N DEPRESSION (INCLUDING POST ) Y BOWEL PROBLEMS N STROKE/TIA N ULCERS N BENIGN PROSTATIC HYPERPLASIA N MEASLES N HYPOTENSION N MYOCARDIAL INFARCTION N OBESITY N GERD/NAUSEA Y ANEURYSM N URINARY/BLADDER/KIDNEY PROBLEMS N CORONARY ARTERY DISEASE (CAD) Y ADDICTION CONCERNS N Impotence N ENDOMETRIOSIS N USE OF BLOOD THINNERS N SKIN PROBLEMS N GASTROINTESTINAL DISORDER N PERIPHERAL VASCULAR DISEASE N MUSCLE,JOINT OR BONE PROBLEMS N GASTROINTESTINAL BLEEDING N BLOOD CLOTS N ASTHMA Y CATARACTS N ERECTILE DYSFUNCTION N VARICOSITIES N GI PROBLEMS N Low Testosterone N INFERTILITY N AIDS/HIV N CHEMOTHERAPY / RADIATION N LIVER DISEASE Y MALE HYPOGONADISM N HYPERTENSION Y Deficiency N TOURETTE'S N ANXIETY DISORDER Y BLOOD TRANSFUSION N ANEMIA/BLOOD DISORDER Y CHRONIC EAR INFECTIONS N BRONCHITIS N TUBERCULOSIS N GLAUCOMA N FOOT PROBLEM N DIVERTICULITIS N SLEEP APNEA Y CHICKENPOX N INFECTIOUS DISEASE N PROSTATE N HEART ARRHYTHMIA N INSOMNIA N HIGH CHOLESTEROL / HYPERLIPIDEMIA N HYPERTHYROIDISM N EYE PROBLEMS Y EDEMA N CHRONIC PAIN SYNDROME N HYPOTHYROIDISM N CONSTIPATION N CAROTID BLOCKAGE N BACK / NECK PROBLEMS Y ATHEROSCLEROSIS N BREAST PROBLEMS N DIALYSIS N ECZEMA N OSTEOPOROSIS N ARTHRITIS N APPENDICITIS N DIABETES, TYPE Y BAD TEETH N ENT N HEARTBURN / REFLUX N AUTISM SPECTRUM DISORDER (ASD) N HEPATITIS / LIVER DISEASE N GOUT N SLEEP DISORDER N ALZHEIMER'S DISEASE N Brain Problems N HERPES N DEMENTIA N SEIZURES/EPILEPSY N HEADACHES/MIGRAINES N VASCULAR DISEASE N PACEMAKER N Blood Disorder N DIZZINESS Y KIDNEY DISEASE Y HEART DISEASE/HEART PROBLEMS Y MULTIPLE SCLEROSIS N CARDIAC ARRHYTHMIA N CANCER: SPECIFY Y Gall Stones N ATRIAL FIBRILLATION N PULMONARY EMBOLISM N AUTOIMMUNE DISEASE N Gynecological HistoryNo gynecological history recorded. Obstetrics History GPAL:G 0 P 0 0 0 0 Immunizations Vaccine Type Date Status Note Provider Nam e and Address Organization Details Recorded Time COVID-19, mRNA, LNP-S, PF, 10 mcg/0.2 mL dose, sandeep-sucrose 3 completed SURI Hernandez, [place] [facility] [employer] [facility] 11/16/2024 10:00:58 Influenza, MDCK, quadrivalent, PF 6 completed HENOK Johns, [employer] [facility] [employer] [facility] 03/24/2024 08:40:41 COVID-19, mRNA, LNP-S, PF, 100 mcg/0.5mL dose or 50 mcg/0.25mL dose 2 completed HENOK Johns, [employer] [facility] 03/24/2024 08:40:41 pneumococcal polysaccharide PPV23 6 completed HENOK Johns, [employer] [facility] [employer] [facility] 03/24/2024 08:40:41 influenza, unspecified formulation 8 completed HENOK Johns, [employer] [facility] [employer] [facility] 03/24/2024 08:40:41 Influenza, split virus, quadrivalent, PF 9 completed Thang Thomson LPN null, [facility] 03/24/2024 08:40:41 Influenza, split virus, quadrivalent, PF 1 completed Thang Thomson LPN null, [facility] 03/24/2024 08:40:41 Pneumococcal conjugate PCV20, polysaccharide JSD235 conjugate, adjuvant, PF 4 completed Lyudmila Babcock RMA null, [facility] 11/16/2024 10:00:58 COVID-19, mRNA, LNP-S, PF, 50 mcg/0.5 mL 3 completed Lyudmila Babcock RMA null, [facility] 11/16/2024 10:00:58 zoster recombinant 3 completed Lyudmila Babcock RMA null, [facility] 11/16/2024 10:00:58 zoster recombinant 3 completed Lyudmila Babcock RMA null, [facility] 11/16/2024 10:00:58 Tdap 3 completed Lyudmila Babcock RMA null, [facility] 11/16/2024 10:00:58 COVID-19, mRNA, LNP-S, bivalent, PF, 30 mcg/0.3 mL dose 3 completed Lyudmila Babcock RMA null, [facility] 11/16/2024 10:00:58 Influenza, split virus, quadrivalent, PF 8 completed Lyudmila Babcock RMA null, [facility] 11/16/2024 10:00:58 Influenza, split virus, quadrivalent, PF 3 completed Geo Sheffield MD [address] [place] [address], [address], [address], [facility] 06/10/2023 16:02:17 COVID-19, mRNA, LNP-S, PF, 100 mcg/0.5mL dose or 50 mcg/0.25mL dose 2 completed Thang Thomson LPN null, [place] [facility] [place] [employer] 03/24/2024 08:40:41 COVID-19, mRNA, LNP-S, PF, 100 mcg/0.5mL dose or 50 mcg/0.25mL dose 2 completed Not Available [facility] 2023 05:38:44 Influenza, split virus, quadrivalent, preservative 1 completed Not Available [facility] 2023 05:38:44 Influenza, split virus, quadrivalent, PF 2 completed Not Available [facility] 2023 05:38:44 Past Encounters Encounter ID Performer Location Encounter Start Date Encounter Closed Date Diagnosis/Indication Diagnosis SNOMED-CT Code Diagnosis ICD10 Code Diagnosis Note [id number] Geo meyer MD S_G Internal Med [facility] [address] [facility] [place] [address] 1 07/31/2021 00:00:00 08/04/2021 10:27:01 [id number] S_Histor [facility]_Gateway _ATHENA_M IGRATION_ DEFAULT_1 _1 , 09/12/2021 00:00:00 09/16/2021 10:23:06 [id number] Geo meyer MD [facility] Internal Med [facility] [address] [place] [address], [address] [address] 10/28/2021 00:00:00 10/28/2021 12:25:40 [id number] Geo meyer MD [facility] Internal Med [facility] [address] [place] [address]., [address] [address] 11/11/2021 00:00:00 11/11/2021 10:59:46 [id number] Geo meyer MD S_G Internal Med [facility] [address] [place] [address]., [address] [address] 12/02/2021 00:00:00 12/10/2021 14:41:10 [id number] S_Histor ic_Gate[facility] _ATHENA_M IGRATION_ DEFAULT_1 _1 , 12/11/2021 00:00:00 12/11/2021 20:01:57 [id number] Kisha Cohn MD S_GMG [place] [address] 12/30/2021 00:00:00 12/30/2021 13:12:03 [id number] [facility] _ATHENA_M IGRATION_ DEFAULT_1 _1 , 02/06/2022 00:00:00 02/10/2022 11:59:22 [id number] [facility] _ATHENA_M IGRATION_ DEFAULT_1 _1 , 02/12/2022 00:00:00 02/12/2022 14:26:08 [id number] Geo meyer MD S_GMG Internal Med [place] [address] 03/05/2022 00:00:00 03/05/2022 11:45:24 [id number] S_Histor ic_Gateway _ATHENA_M IGRATION_ DEFAULT_1 _1 , 05/08/2022 00:00:00 05/12/2022 10:40:47 [id number] MD YULIANA PugaS_GMG Internal Med [place] [address] 1 07/02/2022 00:00:00 07/02/2022 17:21:43 [id number] S_Histor ic_Gateway _ATHENA_M IGRATION_ DEFAULT_1 _1 , 08/07/2022 00:00:00 08/10/2022 11:53:47 [id number] Kisha Cohn MD S_GMLolis [place] [address] 0 08/19/2022 00:00:00 08/19/2022 16:40:03 [id number] MD YULIANA PugaS_[facility] Internal Med [place] [address] 10/29/2022 11:25:51 10/29/2022 12:36:15 Screening - NAD [id number] Z13.9 C-scope: Did get this done 6 monthsDr Ramosrosanneivelisse 07/01/2020 C-scope: Next in 10 years, also s/p EGD Mammogram: 10/28/2021 BiRads 0, US L breast 11/11/2021 , next in 6 monthsUS L breast 06/29/2022 : Next in 6 months PAP: Maya Hopper 11/11/2021 , f/u in one yearUS 11/28/2021 DEXA: 10/28/2021 : Neg Get yearly flu shotGet tdap if not doneGet COVID 19 vaccineCan do shingrix RTC in 4 monthsDo labsER if worse Screening mammography 24 601589 Z12.31 Coronary arteriosclerosis 98720295 I25.10 NM pulm perfusion: 11/22/2021 : NegXR chest 11/21/2021 : Neg S/p admitted and d/c [facility] 11/21-10/29 7: For chest pain, ranexa added as per d/c summary but she is not taking this On plavix, filled by Dr Kovacs, did note it on Dr Hopkins med list on 11/27/2021 that this was removed, Dr Bala VALDOVINOS filled it on 10/07/2022 Not on isosorbide 30mg dailyNot on effient 10mg daily Dr Ivey N NTGOn KGet labs HV Dr Dorantes 11/27/2021 , is to get a stress testSLHV Dr Dorantes 12/25/2021 , next in 6 months Type 2 [facility] mellitus without complication [id number] E11.9 On januvia 25mg daily, decreased by Dr Akhtar 02/12/2022 Not on glipizide 10mg bidOn farxiga 10mg daily, given by Dr Bala Cain humolog Get labs Dr Akhtar 02/12/2022 Dr Monroy 01/09/2022 , 02/06/2022 , next 05/08/2022 Admitted and d/c [facility] 01/15-12/29 2: Hypoglycem ia, glipizide d/c Mixed anxi ety and depressive disorder 613452441 F41.8 On sertraline 25mg dailyNot suicidal or homicidalA dvised not to take any benzoDoes well on this Chronic ki dney disease 226993201 N18.[address] Bala VALDOVINOS,Now sees Dr Gallo On vit d weeklyOn calcitriol 0.25mg daily? use of colchicine will call and tell us if she is using it Steatotic liver disease 973015202 K76.0 US liver: 03/03/2022 , referred to GI hepatology Chronic ob structive pulmonary disease 99667057 J44.[address] well [address] Cohn OV next 02/17/2023 Obstructiv e sleep apnea syndrome 20840579 G47.33 Not on CPAPStates that it 'broke' does not yet want to get a new machine Neuropathy 373714054 G62 .9 On gabapentin 600mg tid Hyperlipidemia 45526520 E78.5 Not on atorvastat in 40mg dailyOn rosuvastat in 10mg dailyGet labs Low back pain 364817706 M54.50 Has been on tramadolDo es not take any tramadolIP C 08/11/[address] Roblero 12/18/2021 On weekly and then monthly B12 Cigarette smoker 9707433 7 F17.210 Advised to quit smoking! Noted to have chest painAlso SOB CT C/A/P 12/09/2021 neg as per note from Dr Roblero 12/18/2021 Upper resp iratory infection 40078030 J06.9 Does not want any testingGet on z-pack, ER if worse, she and her mother verbalized their understand ing of the above [id number] Geo meyer MD S_GMG Internal Med [facility] [address] [facility] [place], [address] [address] 11/12/2022 10:06:53 11/12/2022 10:58:18 Gynecologic examination 68380123 Z01.419 Discussed importance of SBE, diet rich in calcium, weight bearing exercise. Notify office if any vaginal bleeding occurs. She does voice understand ing of the above. RTC 1 year and PRN Has mammogram order from D [id number] Kisha Cohn MD [facility] Pulmonolo gy [address], [address] [address] 12/09/2022 11:12:02 12/09/2022 12:18:14 Smoker 96982972 F17.218 F17.219 Z87.891 Mild persi stent asthma 132333806 J45.30 Sleep apnea 14347332 G47 .30 G47.33 G47.61 G47.36 [id number] Erika Akhtar MD [facility] [place] [address] [place] [address] 12/14/2022 09:05:58 12/14/2022 10:02:29 Uncontrolled type 2 diabetes mellitus 307916063 E11.65 a1c not completed but has stage 3 CKD. Recommende d GLP1 agonist therapy as she is having trouble at times with cravings of sweets and portion control. Discussed potentiall y reducing total carb intake to 120 grams daily into 4-5 small split meals with addition of healthy protein based snack at bedtime to help reduce shellfish manager hyperglyce anna. She has no hx of pancreatit is or medullary thyroid cancer and is willing to trial on a GLP1 agonist therapy. She was advised to contact clinic if she experience s any nausea, vomiting or significan t thyroid pain / swelling or abdominal pain so we can discuss and discontinu e and potentiall y look to other therapy. Will trial on ozempic 0.25 mg SQ once weekly x 4 weeks then increase to 0.5 mg SQ weekly with largest meal of that day as tolerated. Continue semglee only if fasting glucose over 130 mg/dL consistent ly after 10 days of starting new therapy- continue on 4 units in morning and 6 units at bedtime and patient aware to increase or decrease by 1 unit every 3 days to maintain fasting glucose of 90-130 mg/dL. Continue humalog but drop to 2-3 units before meals (she has had low sugars following 5 units) plus correction of 1U:50>150 mg/dL on premeal sugars. Send for freestyle shital sensor for better monitoring and adjustment of insulin. She does test 3 times a day with injections up to 4 times a day- she is compliant and wishing to use sensor therapy. Dyslipidemia [id number] E 78.5 Send for lipid panel to screen for need to modify statin therapy. Spent up to 28 minutes preparing to see the patient (eg, review of tests), obtaining and/or reviewing separately obtained history, performing a medically appropriat e examinatio n and evaluation , counseling and educating the patient, ordering medication s, tests, along with documentin g clinical informatio n in the electronic health record, independen tly interpreti ng results and communicat ing results to the patient. RTC in 3-4 months. Patient was provided a handwritte n lab order which contains our fax number. If she chooses to go outside of the [facility] system to obtain labwork she was advised to provide our fax number and my informatio n to the lab she will be obtaining labwork from in order to have her labs properly forwarded over for me to review so there is no loss of follow up due to use of outside network. She was also advised to contact our clinic informing us that she has completed her labwork so we are aware we will need to reach out to the appropriat e laboratory to request her results be forwarded to us so I might have the ability to review and make further medical decision making in her case. She voiced understand ing. [id number] Kisha Cohn MD [facility] [address] 01/18/2023 09:44:24 01/18/2023 10:54:59 Smoker 70871100 F17.218 F17.219 Z87.891 Mild persi stent asthma 976179025 J45.30 Sleep apnea 37132397 G47 .33 [id number] Geo meyer MD [facility] Internal [facility] [address], [place] [address] 01/28/2023 11:25:00 01/28/2023 12:42:11 Screening - NAD 536693770 Z13.9 C-scope: Did get this done 6 monthsDr Margy 07/01/2020 C-scope: Next in 10 years, also s/p EGD Mammogram: 10/28/2021 BiRads 0, US L breast 11/11/2021 , next in 6 monthsUS L breast 06/29/2022 : Next in 6 monthsMamm ogram: 11/23/2022 : BiRads 0US L breast 11/23/2022 : F/u annually PAP: Maya Hopper 11/11/2021 , f/u in one yearUS 11/28/2021 DEXA: 10/28/2021 : Neg Get yearly flu shotGet tdap if not doneGet COVID 19 vaccineCan do shingrix RTC in 4 monthsDo labsER if worseShe and her mother verbalized their understand ing of the above 45 minutes spent with her and her mother Coronary arteriosclerosis 02049775 I25.10 NM pulm perfusion: 11/22/2021 : NegXR chest 11/21/2021 : NegECHO 12/17/2022 S/p admitted and d/c [facility] 11/21-10/29 7: For chest pain, ranexa added as per d/c summary but she is not taking this On plavix, filled by Dr Kovacs, did note it on Dr Hopkins med list on 11/27/2021 that this was removed, Dr Bala VALDOVINOS filled it on 10/07/2022 Not on isosorbide 30mg dailyNot on effient 10mg daily Dr Ivey N NTGOn KGet labs [facility] Dr Dorantes 11/27/2021 , is to get a stress testSLHV Dr Dorantes 12/25/2021 , next in 6 months Type 2 casa betes mellitus without complication 514003252 E11.9 Not on glipizide 10mg bidNot on farxiga 10mg daily, given by Dr Bala VALDOVINOS On januvia 25mg daily, decreased by Dr Akhtar 02/12/2022 On ozempicOn humologOn lantus 10U daily Get labs Dr Akhtar next 04/19/2022 Dr Monroy 01/09/2022 , 02/06/2022 , next 05/08/2022 Admitted and d/c [facility] 01/15-12/29 2: Hypoglycem ia, glipizide d/cToday again expressed concern for low glucose 01/28/2023 , she is to eat 3 meals with 2 snacks everyday, and monitor her glucose levels at least tid, she feels much better and declines any referrals to the ER now, and has verbalized her understand ing of the above Mixed anxi ety and depressive disorder 710887199 F41.8 On sertraline 25mg dailyNot suicidal or homicidalA dvised not to take any benzoDoes well on this Chronic ki dney disease 573473026 N18.[address] Mckenna IJ Now sees Dr Gallo On vit d weeklyOn calcitriol 0.25mg dailyOn NaBiCarb given by Dr Gallo? use of colchicine will call and tell us if she is using it Steatotic liver disease 376504599 K76.0 US liver: 03/03/2022 , referred to GI hepatology Repeat the US liver Chronic ob structive pulmonary disease 44643275 J44.9 On pro[address] Does well Dr Cohn OV next 02/17/2023 Obstructiv e sleep apnea syndrome 04850801 G47.33 Not on CPAPStates that it 'broke' does not yet want to get a new machine, did see Dr Cohn Neuropathy 285271810 G62 .9 On gabapentin 200mg tid Hyperlipidemia 19244177 E78.5 Not on atorvastat in 40mg dailyOn rosuvastat in 10mg dailyGet labs Low back pain 604144881 M54.50 Has been on tramadolDo es not take any tramadolIP C 08/11/[address] Roblero 12/18/2021 Used to be on weekly and then monthly B12, get labs Cigarette smoker 1211112 7 F17.210 Advised to quit smoking! Noted to have chest painAlso SOB CT C/A/P 12/09/2021 neg as per note from Dr Roblero 12/18/2021 LDCT 01/11/2023 Gynecologi c examination 76591605 Z01.419 Adult heal th examination 788923221 Z00.00 Screening for disorder 743482418 Z13.9 [id number] Makeda Maddox DPM [facility] [place] [address] [facility] [address] [place] [address] 03/18/2023 16:56:37 03/23/2023 16:44:07 Porokeratosis 717690315 Q82.8 Debrided without incidentCo ntinue use of pumice stone and supportive shoe gear to offload the areaFollow -up as needed Foot callus 967164440 L8 4 debrided without incidentCo ntinue supportive shoe gearMonito r area daily for wounds infection at present seek medical attention immediatel y Dystrophia unguium 16462 009 L60.3 Nails 1 through 10 were debrided with sharp mechanical debridemen t without incident. Nails were debrided and greater than 50% length and thickness where needed. Diabetic p eripheral neuropathy 498054908 E11.40 Patient educated on neuropathy , diabetes, diabetic diet, and daily foot exams. Patient is to check feet daily for new wounds, blisters, redness to prevent infection and ulceration s to the feet. Patient will return to clinic in 3 months for diabetic foot workup. [id number] Kisha Cohn MD [facility] [address] [address] 03/30/2023 11:59:30 04/01/2023 09:59:54 Obstructive sleep apnea syndrome 95967737 G47.33 Smoker 26252719 F17.218 F17.219 Z87.891 Mild persi stent asthma 665220360 J45.30 Sleep apnea 56861816 G47 .33 [id number] Erika Akhtar MD [facility] [place] [address] [place] [address] 04/19/2023 09:39:09 04/19/2023 10:28:18 Uncontrolled type 2 diabetes mellitus 620247714 E11.65 a1c not completed but has stage 3 CKD. Continue on ozempic but uptitrate to 0.5 mg once weekly as she is tolerating well. She was reminded she will need 2/3 of basal insulin and 1/3 bolus insulin-sh e is overbolusi ng 90% of the time and explains the hypoglycem ia this morning- she was given 12 ozs of orange juice and back up to 80 mg/dL prior to her going home. Restart lantus at 4 units in morning and 6 units at bedtime and patient aware to increase or decrease by 1 unit every 3 days to maintain fasting glucose of 90-130 mg/dL. Continue humalog but drop to 2-3 units before meals (NOT 14 UNITS-ONLY IF EATING) (she has had low sugars following 5 units) plus correction of 1U:50>150 mg/dL on premeal sugars. She has freestyle shital sensor to monitor closely and compliant with use. She was given written instructio ns again and advised to use my instructio ns not on the insulin pens- we send in more insulin so patients do not run out of insulin as insurance will not cover additional insulin if not indicated. She is aware of this. I had a very thorough discussion regarding diabetes and complicati ons of diabetes. Risks, benefits and side effects of all medication s and therapy up to and including were discussed in detail with patient. This included not following physician recommenda tions. Patient is alert and oriented times four. Patient made their own informed and educated decision regarding her diabetic care and control. Spent up to 25 minutes preparing to see the patient (eg, review of tests), obtaining and/or reviewing separately obtained history, performing a medically appropriat e examinatio n and evaluation , counseling and educating the patient, ordering medication s, tests, along with documentin g clinical informatio n in the electronic health record, independen tly interpreti ng results and communicat ing results to the patient. Patient can be followed by PCP - she/he is aware of my resignatio n and last day of June 11. If needed his/her PCP can refer patient to another endocrinol ogist in the area. All questions /concerns answered and refills necessary at visit today. [id number] Geo meyer MD [facility] [place] [address] [facility], [address] [place] [address] 06/10/2023 10:15:22 06/10/2023 11:32:31 Screening - NAD 645505749 Z13.9 C-scope: Did get this done 6 monthsDr Margy 07/01/2020 C-scope: Next in 10 years, also s/p EGD Mammogram: 10/28/2021 BiRads 0, US L breast 11/11/2021 , next in 6 monthsUS L breast 06/29/2022 : Next in 6 monthsMamm ogram: 11/23/2022 : BiRads 0US L breast 11/23/2022 : F/u annually PAP: Maya Smith 11/11/2021 , f/u in one yearUS 11/28/2021 DEXA: 10/28/2021 : Neg Get yearly flu shotGet tdap if not doneGet COVID 19 vaccineCan do shingrix RTC in 4 monthsDo labsER if worseShe and her mother verbalized their understand ing of the above 45 minutes spent with her and her mother Coronary arteriosclerosis 74810068 I25.10 NM pulm perfusion: 11/22/2021 : NegXR chest 11/21/2021 : NegECHO 12/17/2022 S/p admitted and d/c [facility] 11/21-10/29 7: For chest pain, ranexa added as per d/c summary but she is not taking this On plavix, filled by Dr Kovacs, did note it on Dr Hopkins med list on 11/27/2021 that this was removed, Dr Mckenna IJ filled it on 10/07/2022 Not on isosorbide 30mg dailyNot on effient 10mg daily Dr Ivey N NTGOn KGet labs [facility] Dr Dorantes 11/27/2021 , is to get a stress testSL[facility] Dr Dorantes 12/25/2021 , next in [address] Dorantes 12/03/2022 , next in 6 months Type 2 casa betes mellitus without complication 538691207 E11.9 Not on glipizide 10mg bidNot on januvia 25mg daily, decreased by Dr Akhtar 02/12/2022 On Fargixa 10mg daily, given by Dr Flores ozempicOn humologOn lantus 10U daily Get labs Dr Akhtar 04/19/2023 Dr Monroy 01/09/2022 , 02/06/2022 Dr Maddox 03/18/2023 Admitted and d/c [facility] 01/15-12/29 2: Hypoglycem ia, glipizide d/cToday again expressed concern for low glucose 01/28/2023 , she is to eat 3 meals with 2 snacks everyday, and monitor her glucose levels at least tid, she feels much better and declines any referrals to the ER now, and has verbalized her understand ing of the above Mixed anxi ety and depressive disorder 057765606 F41.8 On sertraline 25mg dailyNot suicidal or homicidalA dvised not to take any benzoDoes well on this Chronic ki dney disease 588049517 N18.[address] Mckenna IJ Now sees Dr Gallo On vit d weeklyOn calcitriol 0.25mg dailyOn NaBiCarb given by Dr Gallo? use of colchicine will call and tell us if she is using it Steatotic liver disease 692402471 K76.0 US liver: 03/03/2022 , referred to GI hepatology US liver: 02/15/2023 : Hepatomega ly, see case, needs to see GI Chronic ob structive pulmonary disease 87795940 J44.[address] On [address] Does well Dr Conh, next 07/12/2023 Obstructiv e sleep apnea syndrome 58259674 G47.33 Sleep study 02/23/2023 : Dr Cohn Not on CPAPStates that it 'broke' does not yet want to get a new machineDr Cohn 07/12/2023 Neuropathy 675049969 G62 .9 On gabapentin 200mg tid Hyperlipidemia 53101820 E78.5 Not on atorvastat in 40mg dailyOn rosuvastat in 10mg dailyGet labs Low back pain 431526186 M54.50 Has been on tramadolDo es not take any tramadolIP C 08/11/[address] Roblero 12/18/2021 Used to be on weekly and then monthly B12, get labs Cigarette smoker 0735892 7 F17.210 Advised to quit smoking! Noted to have chest painAlso SOB CT C/A/P 12/09/2021 neg as per note from Dr Roblero 12/18/2021 LDCT 01/11/2023 Gynecologi c examination 12403717 Z01.419 Administra tion of influenza vaccine 91209323 Z23 [id number] Kisha Cohn MD [facility] Pulmon[facility] [place] [id number] [facility], [address] [place] [address] 07/12/2023 10:56:10 07/13/2023 08:40:22 Smoker 64619095 F17.218 F17.219 Z87.891 Mild persi stent asthma 857716472 J45.30 Sleep apnea 09491963 G47 .33 [id number] Geo meyer MD [facility] [place] [address] [facility] [address] [place] [address] 09/16/2023 11:34:54 09/16/2023 12:13:35 Screening - NAD 169845583 Z13.9 C-scope: Did get this done 6 monthsDr Margy 07/01/2020 C-scope: Next in 10 years, also s/p EGD Mammogram: 10/28/2021 BiRads 0, US L breast 11/11/2021 , next in 6 monthsUS L breast 06/29/2022 : Next in 6 monthsMamm ogram: 11/23/2022 : BiRads 0US L breast 11/23/2022 : F/u annually PAP: Maya Smith 11/11/2021 , f/u in one yearUS 11/28/2021 DEXA: 10/28/2021 : Neg Get yearly flu shotGet tdap if not doneGet COVID 19 vaccineCan do shingrix RTC in 4 monthsDo labsER if worseShe and her mother verbalized their understand ing of the above Coronary arteriosclerosis 08079882 I25.10 NM pulm perfusion: 11/22/2021 : NegXR chest 11/21/2021 : NegECHO 12/17/2022 S/p admitted and d/c [facility] 11/21-10/29 7: For chest pain, ranexa added as per d/c summary but she is not taking this On plavix, filled by Dr Kovacs, did note it on Dr Hopkins med list on 11/27/2021 that this was removed, Dr Mckenna IJ filled it on 10/07/2022 Not on isosorbide 30mg dailyNot on effient 10mg daily Dr Kovacs ON NTGOn KGet labs [facility] Dr Dorantes 11/27/2021 , is to get a stress testSLHV Dr Dorantes 12/25/2021 , next in [address] Dorantes 12/03/2022 , next in 6 months Type 2 casa betes mellitus without complication 242912236 E11.9 Not on glipizide 10mg bidNot on januvia 25mg daily, decreased by Dr Akhtar 02/12/2022 On Fargixa 10mg daily, given by Dr Flores ozempicNot on humologNot on lantus 10U dailyOn Toujeo Get labs Dr Akhtar 04/19/2023 Dr Monroy 01/09/2022 , 02/06/2022 Dr Maddox 03/18/2023 Mixed anxi ety and depressive disorder 928546604 F41.8 On sertraline 25mg dailyNot suicidal or homicidalA dvised not to take any benzoDoes well on this Chronic ki dney disease 663883016 N18.[address] Mckenna IJ Now sees Dr Gallo On vit d weeklyOn calcitriol 0.25mg dailyOn NaBiCarb given by Dr Gallo? use of colchicine will call and tell us if she is using it Steatotic liver disease 106263552 K76.0 liver: 03/03/2022 , referred to GI hepatology US liver: 02/15/2023 : Hepatomega ly, see case, needs to see GI Chronic ob structive pulmonary disease 11352080 J44.9 On proair Does well Dr Cohn, next 07/12/2023 Obstructiv e sleep apnea syndrome 77496671 G47.33 Sleep study 02/23/2023 : Dr Cohn Not on CPAPStates that it 'broke' does not yet want to get a new machineDr Cohn 07/12/2023 Neuropathy 910725832 G62 .9 On gabapentin 200mg tid Hyperlipidemia 03411815 E78.5 Not on atorvastat in 40mg dailyOn rosuvastat in 10mg dailyGet labs Low back pain 642566667 M54.50 Has been on tramadolDo es not take any tramadolIP C 08/11/[address] Roblero 12/18/2021 Used to be on weekly and then monthly B12, get labs Cigarette smoker 6661146 7 F17.210 Advised to quit smoking! Noted to have chest painAlso SOB CT C/A/P 12/09/2021 neg as per note from Dr Roblero 12/18/2021 LDCT 01/11/2023 Gynecologi c examination 06196217 Z01.419 Screening mammography 24 754120 Z12.31 [id number] Kisha Cohn MD [facility] Pulmonolo [facility] [address] [address] 09/16/2023 10:16:31 09/17/2023 08:31:40 Smoker 75676860 F17.218 F17.219 Z87.891 Mild persi stent asthma 078432925 J45.30 Sleep apnea 76571597 G47 .33 [id number] Makeda Maddox DPM [facility] Pod[facility] [place] [address] [place] [address] 10/19/2023 10:17:23 10/21/2023 09:25:35 Porokeratosis 994381858 Q82.8 resolved Foot callus 544744586 L8 4 resolved Dystrophia unguium 04023 009 L60.3 Nails 1 through 10 were debrided with sharp mechanical debridemen t without incident. Nails were debrided and greater than 50% length and thickness where needed. Diabetic p eripheral neuropathy 433011505 E11.40 Patient educated on neuropathy , diabetes, diabetic diet, and daily foot exams. Patient is to check feet daily for new wounds, blisters, redness to prevent infection and ulceration s to the feet. Patient will return to clinic in 3 months for diabetic foot workup. [id number] Geo meyer MD [facility] Internal Med [facility] [address] [facility], [address] [address] 12/16/2023 10:21:29 12/16/2023 11:34:33 Screening - NAD 682203139 Z13.9 C-scope: Did get this done 6 monthsDr Margy 07/01/2020 C-scope: Next in 10 years, also s/p EGD Mammogram: 10/28/2021 BiRads 0, US L breast 11/11/2021 , next in 6 monthsUS L breast 06/29/2022 : Next in 6 monthsMamm ogram: 11/23/2022 : BiRads 0US L breast 11/23/2022 : F/u annuallyMa mmogram: 11/25/2023 : Neg PAP: Maya Smith 11/11/2021 , f/u in one yearUS 11/28/2021 DEXA: 10/28/2021 : Neg Get yearly flu shotGet tdap if not doneGet COVID 19 vaccineCan do shingrix RTC in 4 monthsDo labsER if worseShe and her mother verbalized their understand ing of the above Coronary arteriosclerosis 08488863 I25.10 NM pulm perfusion: 11/22/2021 : NegXR chest 11/21/2021 : NegECHO 12/17/2022 ECHO 12/10/2023 S/p admitted and d/c [facility] 11/21-10/29 7: For chest pain, ranexa added as per d/c summary but she is not taking this On plavix, filled by Dr Kovacs, did note it on Dr Hopkins med list on 11/27/2021 that this was removed, Dr Bala VALDOVINOS filled it on 10/07/2022 Not on isosorbide 30mg dailyNot on effient 10mg daily Dr Kovacs ON NTGOn KGet labs [facility] Dr Dorantes 11/27/2021 , is to get a stress testSLHV Dr Dorantes 12/25/2021 , next in [address] Dorantes 12/03/2022 , next in [address] Dorantes 06/11/2023 , f/u in 6 months Type 2 casa betes mellitus without complication 437002842 E11.9 Not on glipizide 10mg bidNot on januvia 25mg daily, decreased by Dr Akhtar 02/12/2022 On Fargixa 10mg daily, given by Dr Flores ozempelviraNot on humologNot on lantus 10U dailyOn Toujeo Get labs Dr Akhtar 04/19/2023 Dr Monroy 01/09/2022 , 02/06/2022 Dr Maddox 03/18/2023 , 10/19/2023 , next 01/18/2024 Mixed anxi ety and depressive disorder 654975382 F41.8 On sertraline 25mg dailyNot suicidal or homicidalA dvised not to take any benzoDoes well on this Chronic ki dney disease 911337676 N18.[address] Bala VALDOVINOS Now sees Dr Gallo, last OV 08/31/2023 On vit d weeklyOn calcitriol 0.25mg dailyOn NaBiCarb given by Dr Gallo? use of colchicine will call and tell us if she is using it Steatotic liver disease 155328225 K76.0 liver: 03/03/2022 , referred to GI hepatology liver: 02/15/2023 : Hepatomega ly, see case, needs to see GI EGD 12/08/2023 : Dr Vikram Saravia, biopsy for Hobson's esophagus and now is referred to another surgeon Dr Cooley in [facility], [facility] Ole Borden MD next apt 01/20/2024 Dr Marlo Berrios MD, next apt 01/20/2024 , he has increased her ozempic to 2mg daily, he is a weight loss surgeon as per her historySti ll has to get a MRI elastogram done, but not able to do this d/t her cardiac stents Chronic ob structive pulmonary disease 20125284 J44.[address] Cohn Obstructiv e sleep apnea syndrome 68220149 G47.33 Sleep study 02/23/2023 : Dr Cohn Not on CPAPStates that it 'broke' does not yet want to get a new machineDr Cohn 07/12/2023 Neuropathy 276327046 G62 .9 On gabapentin 200mg tid Hyperlipidemia 15719633 E78.5 Not on atorvastat in 40mg dailyOn rosuvastat in 10mg dailyGet labs Low back pain 230442754 M54.50 Has been on tramadolDo es not take any tramadolIP C 08/11/[address] Roblero 12/18/2021 Used to be on weekly and then monthly B12, get labs Cigarette smoker 8781551 7 F17.210 Advised to quit smoking! Noted to have chest painAlso SOB CT C/A/P 12/09/2021 neg as per note from Dr Roblero 12/18/2021 LDCT 01/11/2023 Gynecologi c examination 83695601 Z01.419 Referred again 12/16/2023 , understand s the risks for not keeping her OB apt Screening for osteoporosis 344682570 Z13.820 Pre-surger y evaluation 750022115 Z01.818 Surgeon: Dr Viktoria mata: BunyonDate : TBDAnesthe guillermo: TBDClearan ce: Cleared by Dr Dorantes 12/02/2023 Needs to do labs, will do them today 12/16/2023 [id number] Makeda Maddox DPM [facility] Podiatry [place] [address] [place] [address] 01/18/2024 11:00:16 01/18/2024 12:43:53 Diabetic peripheral neuropathy 117271375 E11.40 continue diabetic control per PCP recommenda tions Dystrophia unguium 75109 009 L60.3 Nails 1 through 10 were debrided with sharp mechanical debridemen t without incident. Nails were debrided and greater than 50% length and thickness where needed. Foot callus 779110912 L8 4 medial metatarsop halangeal joint bilaterald ebrided without incidentof floadingus e pumice stone area daily with Amlactin over-the-c ounter Bunion 626762540 M21.61 9 bilaterale ducated on treatment optionscon tinue conservati ve therapy until surgical clearance obtainedcu rrently awaiting diabetic management improvemen [facility]ge[facility] wide shoe gear to prevent wounds [id number] Kisha Cohn MD [facility] Pulmonolo gy [place] [address] [place] [address] 03/16/2024 08:58:09 03/17/2024 08:12:11 Smoker 75567422 F17.218 F17.219 Z87.891 Mild persi stent asthma 184429055 J45.30 Sleep apnea 36260929 G47 .33 [id number] Makeda Maddox DPM [facility] Podiatry [place] [address] [place] [address] 03/16/2024 10:02:29 03/16/2024 15:00:28 Bunion 693763590 M21.619 bilateralr ight foot x-rays reviewedpl an metatarsop halangeal joint fusionobta in surgical clearancee ducated on treatment optionsall risks, benefits, complicati ons reviewed with the patient to complete full understand ing. Patient elects to continue with the planned procedure once cleared her risks include but not limited to the following, nerve pain, foot pain, scar, painful scar, infection, nonhealing wound, bone infection, hardware failure, reaction to hardware, recurrence , failed hardware, nonunion, malunion, loss of toe..compa nue conservati ve therapy until surgical clearance obtainedre commend wide shoe gear to prevent woundsWill schedule surgery once obtained clearance Cigarette smoker 2099231 7 F17.210 4 cigarettes dailyrecom mend completely quittingre viewed treatment options Pain in right foot 58742 19508 53167 M79.671 as above [id number] Geo meyer MD [facility] Internal Med [place] [address] [facility], [address] [place] [address] 03/30/2024 10:28:18 03/30/2024 11:35:13 Coronary arteriosclerosis 33266869 I25.10 NM pulm perfusion: 11/22/2021 : NegXR chest 11/21/2021 : NegECHO 12/17/2022 ECHO 12/10/2023 S/p admitted and d/c [facility] 11/21-10/29 7: For chest pain, ranexa added as per d/c summary but she is not taking this On plavix, filled by Dr Kovacs, did note it on Dr Hokpins med list on 11/27/2021 that this was removed, Dr Bala VALDOVINOS filled it on 10/07/2022 , 03/30/2024 Not on isosorbide 30mg dailyNot on effient 10mg daily Dr Kovacs ON NTGOn K ER 20meq daily filled by Dr Amor labs [facility] Dr Dorantes 11/27/2021 , is to get a stress testSLHV Dr Dorantes 12/25/2021 , next in [address] Dorantes 12/03/2022 , next in [address] Dorantes 06/11/2023 , f/u in 6 months Screening - NAD 24452902 3 Z13.9 C-scope: Did get this done 6 monthsDr Margy 07/01/2020 C-scope: Next in 10 years, also s/p EGDEGD 12/08/2023 : Dr Janusz Saravia MD Mammogram: 10/28/2021 BiRads 0, US L breast 11/11/2021 , next in 6 monthsUS L breast 06/29/2022 : Next in 6 monthsMamm ogram: 11/23/2022 : BiRads 0US L breast 11/23/2022 : F/u annuallyMa mmogram: 11/25/2023 : Neg PAP: Maya Hopper 11/11/2021 , f/u in one yearUS 11/28/2021 DEXA: 10/28/2021 : Neg Get yearly flu shotGet tdap if not doneGet COVID 19 vaccineCan do shingrix RTC in 4 monthsDo labsER if worseShe and her mother verbalized their understand ing of the above Type 2 [facility] mellitus without complication [id number] E11.9 Not on glipizide 10mg bidNot on januvia 25mg daily, decreased by Dr Akhtar 02/12/2022 On Fargixa 10mg daily, given by Dr Flores ozempicNot on humologNot on lantus 10U dailyOn Toujeo Get labs Dr Akhtar 04/19/2023 Dr Monroy 01/09/2022 , 02/06/2022 Dr Maddox 03/18/2023 , 10/19/2023 ,, 03/16/2024 , next 04/18/2024 Mixed anxi ety and depressive disorder 611710274 F41.8 On sertraline 50mg daily, given by Dr Olsen to increase to 100mg daily, advised that this is a high dose, if this is not helping she MUST see psychiatry , all side effects explained to herNot suicidal or homicidalA dvised not to take any benzo Chronic ki dney disease 075818215 N18.[address] Mckenna IJ Now sees Dr Gallo, last OV 08/31/2023 On vit d weeklyOn calcitriol 0.25mg dailyOn NaBiCarb given by Dr Gallo? use of colchicine will call and tell us if she is using it Steatotic liver disease [id number] K76.0 US liver: 03/03/2022 , referred to GI hepatology US liver: 02/15/2023 : Hepatomega ly, see case, needs to see GI EGD 12/08/2023 : Dr Vikram Saravia, biopsy for Hobson's esophagus and now is referred to another surgeon Dr Cooley in [facility], Ole Perry MD next apt 01/20/2024 Dr Marlo Berrios MD, next apt 01/20/2024 , he has increased her ozempic to 2mg daily, he is a weight loss surgeon as per her historySti ll has to get a MRI elastogram done, but not able to do this d/t her cardiac stents Referred [facility] not want to see any more MDs in [facility] agreeable to see Dr Bay referred 03/30/2024 Obstructiv e sleep apnea syndrome 70471734 G47.33 Sleep study 02/23/2023 : Dr Cohn Not on CPAPStates that it 'broke' does not yet want to get a new machineDr Cohn 07/12/2023 Neuropathy 707617829 G62 .9 On gabapentin 200mg tid Hyperlipidemia 13475003 E78.5 Not on atorvastat in 40mg dailyOn rosuvastat in 40mg daily, more diet and exercise, is needed, LDL goal is less than 70Get labs Low back pain 806868206 M54.50 Had been on tramadolDo es not take any tramadolIP C 08/11/[address] Roblero 12/18/2021 Used to be on weekly and then monthly B12, get labs Cigarette smoker 6534241 7 F17.210 Advised to quit smoking! Noted to have chest painAlso SOB CT C/A/P 12/09/2021 neg as per note from Dr Roblero 12/18/2021 LDCT 01/11/2023 Pre-surger y evaluation 413669059 Z01.818 Surgeon: Dr Viktoria riveraery: BunterranceDate : Kelly guillermo: Kojo ce: Cleared by Dr Dorantes 12/02/2023 Needs to do labs, will do them today 12/16/2023 Asthma 598166916 J45.90 9 LDCT: 03/08/2024 : Dr Suki Cohn 03/16/2024 , next 09/14/2024 Adult [facility] examination 518659245 Z00.00 Screening for disorder 977046288 Z13.9 Screening for osteoporosis 971276802 Z13.251 [id number] Makeda Maddox DPM [facility] [place] [address] [address] 05/04/2024 11:32:51 05/05/2024 09:39:00 Postoperative care 325640795 Z48.89 post-op day -6surgery date 04/28dressi ngs changedfol low up in 1 week Dehiscence of external surgical incision wound [id number] 26468 T81.31XA right first mtpj- minor0.2x0 .5x0.2cmhi biclens wet to dry dressings appliedcon t elevationk eep clean and dryfollow up in one week [id number] Makeda Maddox DPM [facility] [place] [address] [address] 05/16/2024 09:20:18 05/16/2024 13:26:11 Postoperative care 140556224 Z48.89 post-op day 1st metatarsal fusion [facility] date 04/28dressi ngs changed - mild compressio n dressing appliedfoo t cleaned with ChloraPrep follow up in 1 week, suture removal and x-rays [id number] Makeda Maddox DPM [facility] [place] [address] [address] 05/23/2024 09:47:51 05/24/2024 13:46:19 Postoperative care 456517519 Z48.89 post-op day 1st metatarsal fusion [facility] date uture s removedx-r ays reviewedfo llow-up 2 weeks for repeat x-rays Closed fra cture proximal phalanx, toe 151063149 S92.414A nonweightb earing 100% right footcontin ue postop shoeelevat ion when at restrice therapymil d Larry compressio n appliedpat ient reviewed x-ray findings [id number] Makeda Maddox DPM [facility] [place] [address] [place] [phone] 06/06/2024 09:30:47 06/06/2024 13:47:19 Postoperative care 614913064 Z48.89 post-op day 1st metatarsal fusion in her bunionsurg roge date 04/28x-rays reviewed- Stable correction with fracture of the proximal phalanx nondisplac edfollow-u p 3 weeks repeat x-rays Closed fra cture proximal phalanx, toe 356269577 S92.414A nonweightb earing 100% right foot- still walkingcon tinue postop shoeelevat ion when at restrice therapymil d Larry compressio n appliedpat ient reviewed x-ray findings [id number] Makeda Maddox DPM [facility] [place] [address] [address] 06/27/2024 09:34:17 08/25/2024 10:27:46 Closed fracture proximal phalanx, toe 937497699 S92.414A may transition to normal shoe gearminima l walkingric e therapyele vation when at restmild Larry compressio n appliedpat ient reviewed x-ray findingsfo llow-up 2 months for repeat x-rays Postoperative visit 1836 86666 Z48.89 fusion 1st metatarsop halangeal jointdoing wellintact hardwareno swelling or painx-rays reviewed with fusing 1st metatarsop halangeal joint and healing fracture of the proximal phalanxmay transition to normal shoe gear [id number] Geo meyer MD [facility] Internal [facility] [address] [facility] [address] [address] 08/03/2024 10:08:29 08/03/2024 11:22:18 Coronary arteriosclerosis 22102819 I25.10 NM pulm perfusion: 11/22/2021 : NegXR chest 11/21/2021 : NegECHO 12/17/2022 ECHO 12/10/2023 S/p admitted and d/c [facility] 11/21-10/29 7: For chest pain, ranexa added as per d/c summary but she is not taking this On plavix, filled by Dr Kovacs, did note it on [facility] med list on 11/27/2021 that this was removed, Dr Bala VALDOVINOS filled it on 10/07/2022 , 03/30/2024 Not on isosorbide 30mg dailyNot on effient 10mg daily Dr Kovacs ON NTGOn K ER 20meq daily filled by Dr Amor labs [facility] Dr Dorantes 11/27/2021 , is to get a stress test[facility] Dr Dorantes 12/25/2021 , next [place] [address] Dorantes 12/03/2022 , next in [address] Dorantes 06/11/2023 , f/u [place] [address] Dorantes 06/01/2204 Screening - NAD 31087688 3 Z13.9 C-scope: Did get this done 6 monthsDr Margy 07/01/2020 C-scope: Next in 10 years, also s/p EGDEGD 12/08/2023 : Dr Janusz Saravia MD Mammogram: 10/28/2021 BiRads 0, US L breast 11/11/2021 , next in 6 monthsUS L breast 06/29/2022 : Next in 6 monthsMamm ogram: 11/23/2022 : BiRads 0US L breast 11/23/2022 : F/u annuallyMa mmogram: 11/25/2023 : Neg PAP: Maya Smith 11/11/2021 , f/u in one yearUS 11/28/2021 DEXA: 10/28/2021 : Neg Get yearly flu shotGet tdap if not doneGet COVID 19 vaccineCan do shingrix RTC in 4 monthsDo labsER if worseShe verbalized her understand ing of the above Type 2 [facility] mellitus without complication 618429791 E11.9 Not on glipizide 10mg bidNot on januvia 25mg daily, decreased by Dr Akhtar 02/12/2022 On Fargixa 10mg dailyOn OzempicNot on humologNot on lantus 10U dailyOn Toujeo Get labs Dr Akhtar 04/19/[address] Pozo, next apt in 09/12/2024 and in 01/02/2025 Dr Monroy 01/09/2022 , 02/06/2022 Dr Maddox next apt 09/14/2023 Mixed anxi ety and depressive disorder 241843544 F41.8 On sertraline 100mg dailyNot suicidal or homicidalD eclined any psychiatry referralAd vised not to take any benzo Chronic ki dney disease 353070405 N18.[address] Mckenna IJ Now sees Dr Gallo, last OV 06/27/2024 On vit d weeklyOn calcitriol 0.25mg dailyOn NaBiCarb given by Dr Gallo? use of colchicine will call and tell us if she is using it Steatotic liver disease 363057728 K76.0 liver: 03/03/2022 , referred to GI hepatology liver: 02/15/2023 : Hepatomega ly, see case, needs to see GI EGD 12/08/2023 : Dr Vikram Saravia, biopsy for Hobson's esophagus and now is referred to another surgeon Dr Cooley in [facility], [facility] Ole Borden MD next apt 01/20/2024 Dr Marlo Berrios MD, next apt 01/20/2024 , he has increased her ozempic to 2mg daily, he is a weight loss surgeon as per her historySti ll has to get a MRI elastogram done, but not able to do this d/t her cardiac stents Referred to [facility] not want to see any more MD[facility] agreeable to see Dr Bay referred 03/30/2024 , 08/03/2024 Obstructiv e sleep apnea syndrome 53482987 G47.33 Sleep study 02/23/2023 : Dr Cohn On CPAPStates that it 'broke' does not yet want to get a new machineDr Cohn 09/14/2024 Neuropathy 625348140 G62 .9 On gabapentin 200mg tid Hyperlipidemia 13419772 E78.5 Not on atorvastat in 40mg dailyOn rosuvastat in 40mg daily, more diet and exercise, is needed, LDL goal is less than 70Get labs Low back pain 945482680 M54.50 Had been on tramadolDo es not take any tramadolIP C 08/11/[address] Roblero 12/18/2021 Used to be on weekly and then monthly B12, get labs Cigarette smoker 8869575 7 F17.210 Advised to quit smoking! Noted to have chest painAlso SOB CT C/A/P 12/09/2021 neg as per note from Dr Roblero 12/18/2021 Pre-surger y evaluation 073852100 Z01.818 Surgeon: Dr Blum rgery: BunyonDate : TBDAnesthe guillermo: TBDClearan ce: Cleared by Dr Dorantes 12/02/2023 Needs to do labs, will do them today 12/16/2023 Asthma 242537917 J45.90 9 LDCT: 03/08/2024 : Dr Suki Cohn 03/16/2024 , next 09/14/2024 Screening for osteoporosis 188175604 Z13.820 Screening mammography 24 107440 Z12.31 Closed fra cture proximal phalanx, toe 245023225 S92.911A Dr Maddox 06/27/2024 , next apt 09/14/2023 Upper resp iratory infection 68362049 J06.9 Does not want any testingGet on z-pack, ER if worse, she and her mother verbalized their understand ing of the above OV 08/03/2024 :Get on augmentin 875mg po bid for 7 daysGet on flonase and zyrtecGet tested for COVID 19, flu and strep test [id number] Makeda Maddox DPM [facility] [place] [address] [place] [address] 09/14/2024 09:14:50 09/25/2024 11:36:07 Closed fracture proximal phalanx, toe 777308085 S92.414A healed Postoperative visit 1836 51967 Z48.89 fusion 1st metatarsop halangeal jointx-ray s reviewedma y continue normal shoefollow -up as needed Dystrophia unguium 36725 009 L60.3 Nails 1 through 10 were debrided with sharp mechanical debridemen t without incident. Nails were debrided and greater than 50% length and thickness where needed. [id number] Kisha Cohn MD [facility] [place] [address] [place] [address] [address] [place] [address] 09/28/2024 11:07:13 09/28/2024 12:30:31 Smoker 72776927 F17.218 F17.219 Z87.891 Mild persi stent asthma 970959901 J45.30 Sleep apnea 76734612 G47 .33 [id number] Geo meyer MD [facility] [address] [address] 11/16/2024 09:54:13 11/16/2024 10:45:22 Coronary arteriosclerosis 56461858 I25.10 NM pulm perfusion: 11/22/2021 : NegXR chest 11/21/2021 : NegECHO 12/17/2022 ECHO 12/10/2023 S/p admitted and d/c [facility] 11/21-10/29 7: For chest pain, ranexa added as per d/c summary but she is not taking this On plavix, filled by Dr Kovacs, did note it on Dr [facility] med list on 11/27/2021 that this was removed, Dr Bala VALDOVINOS filled it on 10/07/2022 , 03/30/2024 Not on isosorbide 30mg dailyNot on effient 10mg daily Dr Kovacs ON NTGOn K ER 20meq daily filled by Dr Amor labs [facility] Dr Dorantes 11/27/2021 , is to get a stress testSLHV Dr Dorantes 12/25/2021 , next in [address] Dorantes 12/03/2022 , next in [address] Dorantes 06/11/2023 , f/u in [address] Dorantes 06/01/2204 Screening - NAD 99582738 3 Z13.9 C-scope: Did get this done 6 monthsDr Margy 07/01/2020 C-scope: Next in 10 years, also s/p EGDEGD 12/08/2023 : Dr Janusz Saravia MD Mammogram: 10/28/2021 BiRads 0, US L breast 11/11/2021 , next in 6 monthsUS L breast 06/29/2022 : Next in 6 monthsMamm ogram: 11/23/2022 : BiRads 0US L breast 11/23/2022 : F/u annuallyMa mmogram: 11/25/2023 : Neg PAP: Maya Hopper 11/11/2021 , f/u in one yearUS 11/28/2021 DEXA: 10/28/2021 : NegDEXA: 04/06/2024 : Neg Get yearly flu shotGet tdap if not doneGet COVID 19 vaccineCan do shingrixCa n do prevnar #20 RTC in 4 monthsDo labsER if worseShe verbalized her understand ing of the above Type 2 [facility] mellitus without complication 864680728 E11.9 Not on glipizide 10mg bidNot on januvia 25mg daily, decreased by Dr Akhtar 02/12/2022 On Fargixa 10mg dailyOn glimepirid e 1mg bidOn Januvia Dr Gallo started 11/09/2024 On OzempicNot on humalogNot on lantus 10U dailyOn Toujeo Get labs Dr Akhtar 04/19/[address] Pozo, next apt in 09/12/2024 and in 01/02/2025 Dr Triny Maddox next apt 12/14/2024 Mixed anxi ety and depressive disorder 532415637 F41.8 On sertraline 100mg dailyNot suicidal or homicidalD eclined any psychiatry referralAd vised not to take any benzo Chronic ki dney disease 674651539 N18.[address] Mckenna IJ Now sees Dr Gallo, last OV 11/07/2024 , started on Januvia by Dr Gallo On vit d weeklyOn calcitriol 0.25mg dailyOn NaBiCarb given by Dr Gallo? use of colchicine will call and tell us if she is using it Steatotic liver disease 112834727 K76.0 US liver: 03/03/2022 , referred to GI hepatology liver: 02/15/2023 : Hepatomega ly, see case, needs to see GI EGD 12/08/2023 : Dr Vikram Saravia, biopsy for Hobson's esophagus and now is referred to another surgeon Dr Cooley in [place] Syn MD next apt 01/20/2024 Dr Marlo Berrios MD, next apt 01/20/2024 , he has increased her ozempic to 2mg daily, he is a weight loss surgeon as per her historySti ll has to get a MRI elastogram done, but not able to do this d/t her cardiac stents Referred to Dr Reed [facility] does not want to see any more MDs in [facility] agreeable to see Dr Bay referred 03/30/2024 , 08/03/2024 Obstructiv e sleep apnea syndrome 72323980 G47.33 Sleep study 02/23/2023 : Dr Cohn On CPAPStates that it 'broke' does not yet want to get a new machineDr Cohn next apt 03/29/2025 Neuropathy 058229852 G62 .9 On gabapentin 200mg tid Hyperlipidemia 30222379 E78.5 Not on atorvastat in 40mg dailyOn rosuvastat in 40mg daily, more diet and exercise, is needed, LDL goal is less than 70Get labs Low back pain 985521564 M54.50 Had been on tramadolDo es not take any tramadolIP C 08/11/[address] Roblero 12/18/2021 Used to be on weekly and then monthly B12, get labs Cigarette smoker 5939272 7 F17.210 Advised to quit smoking! Noted to have chest painAlso SOB CT C/A/P 12/09/2021 neg as per note from Dr Roblero 12/18/2021 Pre-surger y evaluation 596580177 Z01.818 Surgeon: Dr Blum rgery: BunyonDate : TBDAnesthe guillermo: TBDClearan ce: Cleared by Dr Dorantes 12/02/2023 Needs to do labs, will do them today 12/16/2023 Asthma 990286079 J45.90 9 LDCT: 03/08/2024 : Dr Cohn On BreoOn albuterolO n flonaseDr Suki 03/16/2024 , next 09/14/2024 Screening for osteoporosis 188586706 Z13.820 Screening mammography 24 577764 Z12.31 Closed fra cture proximal phalanx, toe 816267316 S92.911A Dr Maddox [id number] Makeda Maddox DPM [facility] [address] [place] [address] 12/14/2024 10:02:35 12/14/2024 11:12:16 Diabetes mellitus 85172684 E11.40 continue care per PCP Diabetic p eripheral neuropathy 492730648 E11.40 continue diabetic control per PCP recommenda tionsconti nue gabapentin per PCP Dystrophia unguium 55928 009 L60.3 Nails 1 through 10 were debrided with sharp mechanical debridemen t without incident. Nails were debrided and greater than 50% length and thickness where needed. Bunion 725145006 M21.61 9 bilaterall eft foot foot x-rays orderedobt ain x-raysreco mmend wide shoe gear, rice therapy, NSAIDs, bunion sleeve Health Concerns Section Related Observation LastModified by Organization Detai ls LastModified Time None Recorded Concern Status LastModified by Organization Details LastModified Time None Recorded Advance Directives Directive N: Payers Encounter Date Sequence Insurance Name Policy Number Policy Calhoun Covered Member ID Calhoun Member ID Guarantor Name 08/03/2024 1 [facility] (MEDICARE REPLACEMENT/A DVANTAGE - PPO) [id number] Naa A Christi [id number] Naa A Ribera 08/03/2024 2 [place] [facility] Naa A Ribera [id number] Naa A Ribera 09/14/2024 1 [facility] (MEDICARE REPLACEMENT/A DVANTAGE - PPO) [id number] Naa A Ribera [id number] Naa A Ribera 09/14/2024 2 [place] [facility] Naa A Christi [id number] Naa A Ribera 09/28/2024 1 [facility] (MEDICARE REPLACEMENT/A DVANTAGE - PPO) [id number] Naa A Ribera [id number] Naa A Ribera 09/28/2024 2 [place] [facility] Naa A Christi [id number] Naa A Ribera 11/16/2024 1 [facility] (MEDICARE REPLACEMENT/A DVANTAGE - PPO) [id number] Naa Barraza [id number] Naa Barraza 11/16/2024 2 [place] [facility] Naa Barraza [id number] Naa Barraza 12/14/2024 1 [facility] (MEDICARE REPLACEMENT/A DVANTAGE - PPO) [id number] Naa Barraza [id number] Naa Barraza 12/14/2024 2 [place] [facility] Naa Barraza [id number] Naa Barraza Notes Date Note Type Note Provider Name and Address Organization Details Recorded Time 4 text/html OV 07/31/2021:Here to establish carePast Hx:CADCOPDOSADMIINeuropa thyHLDReviewed social family and surgical historyDoes c/o LBP and also some anxiety, she feels that her anxiety causes her to shake and she is also worried about her blood tests as she has been told that she has had 'low potassium'She has had CAD but has not yet seen a cardiologistNo new labsShe is here with her mother Estephanie OV 10/28/2021:Here for her aptShe feels well, but has lost weightShe has not had any recent labsOV 12/02/2021:TCM aptS/p d/c from [facility] on 11/23/2021 for chest pain, was seen by cardiologyFeels well today OV 03/05/2022:Here for her routine aptShe is doing wellShe did do the labs on 03/03/2022 OV 07/02/2022:Here for her f/u apt, she is doing well, she has no labs done, but willing to do today as she is fasting OV 10/29/2022:Here for her f/u apt, she is c/o of URI sx, some nasal congestion and mild cough, declines any testing for COVID today OV 01/28/2023:Here for her f/u apt with her mother, she did do the labs on 01/11/2023, she states that she feels that her sugar is low and she is sweaty, her ACCU was 56, and with orange juice it was upto 75, she immediately felt better OV 06/10/2023: Here for her f/u apt, she is doing well today, no recent labs noted, she is here with her mother OV 09/16/2023: Here for her routine apt, she is doing well today, she did see Dr Cohn today OV 12/16/2023: Here for her f/u apt, she feels well, no new labs noted OV 03/30/2024: Here for her f/u apt, she is here for MWV, she is here with her mother, she did do the labs, she would like to increase her dose of the sertraline as she feels that her 'stress levels' are 'thru the roof' d/t her various doctor apts, she is not suicidal or homicidal, and feels very well otherwise OV 08/03/2204: Here for her f/u apt, she is c/o URI sx, c/o cough, some nasal congestion, sinus congestion and some R>L ear pain, no fevers or chills, no dizziness, no chest pain or SOB, no wheezing Geo Sheffield MD [address], [place], [address], [employer] 08/03/2024 11:30:53 5 text/html . Patient is a 59-year-old female she returns to the office for follow-up on fusion of the right 1st metatarsophalangeal joint she is in good position she denies any pain with weight-bearing she had repeat x-rays today which shows solid stable fusion of the 1st MPJ she denies any swelling. Patient states her nails are long would like to have them cut as she can not cut them. Patient denies any other complaints. Makeda Maddox DPM [address], [place], [address], [employer] 09/14/2024 09:54:08 5 text/html Primary care/Referring provider: Geo Sheffield MD CC: I have not smoked cigarettes for one week.Patient is here to go over her asthma management. Initial development of shortness of breath: 2014Duration of shortness of breath: 11 yearsCondition of shortness of breath: improvedTiming of shortness of breath: bedtimeFrequency: up to 1 time a weekLimits activities: yesAggravating factors: walking, vacuuming, sweepingAlleviating factors: restModified Medical Research [place] (mMRC) Dyspnea Scale - Grade 2Grade 0 I only get breathless with strenuous exercise .Grade 1 I get short of breath when hurrying on the level or walking up a slight hill .Grade 2 I walk slower than people of the same age on the level because of breathlessness or have to stop for breath when walking at my own pace on the level .Grade 3 I stop for breath after walking about 100 yards or after a few minutes on the level .Grade 4 I am too breathless to leave the house or I am breathless when dressing . Patient's personal best peak flow remains at 260 L/min.Treatment history:Albuterol HFA as needed since 2019, up to 3 x a week Symbicort HFA 160/4.5 mcg 2 puffs BID 2021 - reo Ellipta 100/25 mcg 1 puff daily since 2022Other symptoms:Productive cough: whiteWheezing: yesChest tightness: yesOrthopnea: 2-pillowFrequent throat clearing or swallowing: noPalpitations: yesHeartburn: noDysphagia: noEdema: noEnvironmental exposures:Nicotine smoke: 1/2 ppd 1982-present = 21 pack yearsPaint: noDye: noDust mites: yesMold: noDamp basement: noWood burning stove: noAnimal dander: catCockroaches: noPollen: yesArsenic: noAsbestos: noBeryllium: noCadmium: noChromium: noCoal smoke: noDiesel fumes: noNickel: noSilica: noSoot: no During the [facility] diagnostic sleep study on 01/04/23, sleep onset = 15 minutes, REM onset = 45.5 minutes, AHI = 5, supine AHI = 10, REM AHI = 12. During the [facility] titration sleep study on 02/23/23, sleep onset = 10 minutes and REM onset = 86.5 minutes. At home since 03/16/24, the patient uses a ResMed AirSense 11 autoset unit with heated humidification. The patient does not need the ramp to start low and go up slowly on the pressure. There is no xerostomia in a.m. There is no hose/mask condensation with water. The patient wears a [employer]Med medium AirFit F20 full face mask without chin strap. There is no claustrophobia, no nostril/nose bridge irritation, no facial rash, no facial numbness, no nosebleeding. The patient feels more refreshed upon waking and daytime alertness is improved. Energy levels are sustained for the remainder of the day. The patient feels refreshed upon waking and daytime alertness is longer improved. Energy levels are sustained for the remainder of the day. At home, the patient sleeps from 11 pm to 8 am and wakes up without an alarm. Snoring: heavy, since .Snorting: yesChoking: noCoughing: yesGasping: yesGagging: noSighing: noWitnessed apnea: yesTwitching or jerking of leg(s), arm(s), body, head: yesTeeth grinding: yesTeeth clenching: yesSleeptalking: yesSleepwalking: noSleep crying: noBedwetting: noTongue/lip/gum/cheek biting: noSleeping with open mouth: yesSleep paralysis: noHypnagogic hallucinations: noHypnopompic hallucinations: noVivid dreams: yesDifficulty with sleep onset: yesDifficulty with sleep maintenance: yesSleep interruptions: for no known reasonsPatient wakes up with: fatigue, headaches, mobility impairment, dexterity impairmentDaytime cataplexy: noMorning hypersomnolence: yesAfternoon hypersomnolence: yesCaffeine sources in diet: tea 2 cups per day, soda 1 fountain drink per day, chocolate 1 candy per month Associated medical and psychiatric conditions:Congestive heart failure: yesCoronary artery disease: yesMyocardial infarction: noHypertension: noStroke: noBronchial asthma: noChronic obstructive pulmonary disease: noDepression: yesBipolar disorder: noAnxiety: noPanic disorder: noPosttraumatic stress disorder: noAttention deficit and hyperactivity disorder: noObsessive Compulsive disorder: noSchizophrenia: noSchizoaffective disorder: noPersonality disorder: noChronic analgesic use: noChronic sedative/hypnotic use: no EPWORTH SLEEPINESS SCALE (ESS)CHANCE OF DOZING SCORE0 = would never doze1 = slight chance of dozing2 = moderate chance of dozing3 = high chance of dozingSITUATION AND CHANCE OF DOZINGSitting and reading - 0Watching television - 0Sitting inactive in a public place (e.g. a theater or meeting) - 0As a passenger in a car for an hour without a break - 0Lying down to rest in the afternoon when circumstances permit - 0Sitting and talking to someone - 0Sitting quietly after lunch without alcohol - 0In a car, while stopped for a few minutes in the traffic - 0TOTAL SCORE 0Subjectively, patient has no chance of dozing. Kisha Cohn MD [address] [place] [address], [facility] [address], [place], [address], [facility] [employer] 09/28/2024 12:29:15 5 text/html OV 07/31/2021:Here to establish carePast Hx:CADCOPDOSADMIINeuropa thyHLDReviewed social family and surgical historyDoes c/o LBP and also some anxiety, she feels that her anxiety causes her to shake and she is also worried about her blood tests as she has been told that she has had 'low potassium'She has had CAD but has not yet seen a cardiologistNo new labsShe is here with her mother Estephanie OV 10/28/2021:Here for her aptShe feels well, but has lost weightShe has not had any recent labsOV 12/02/2021:TCM aptS/p d/c from [facility] on 11[facility]2021 for chest pain, was seen by cardiologyFeels well today OV 03/05/2022:Here for her routine aptShe is doing wellShe did do the labs on 03/03/2022 OV 07/02/2022:Here for her f/u apt, she is doing well, she has no labs done, but willing to do today as she is fasting OV 10/29/2022:Here for her f/u apt, she is c/o of URI sx, some nasal congestion and mild cough, declines any testing for COVID today OV 01/28/2023:Here for her f/u apt with her mother, she did do the labs on 01/11/2023, she states that she feels that her sugar is low and she is sweaty, her ACCU was 56, and with orange juice it was upto 75, she immediately felt better OV 06/10/2023: Here for her f/u apt, she is doing well today, no recent labs noted, she is here with her mother OV 09/16/2023: Here for her routine apt, she is doing well today, she did see Dr Cohn today OV 12/16/2023: Here for her f/u apt, she feels well, no new labs noted OV 03/30/2024: Here for her f/u apt, she is here for MWV, she is here with her mother, she did do the labs, she would like to increase her dose of the sertraline as she feels that her 'stress levels' are 'thru the roof' d/t her various doctor apts, she is not suicidal or homicidal, and feels very well otherwise OV 08/03/2204: Here for her f/u apt, she is c/o URI sx, c/o cough, some nasal congestion, sinus congestion and some R>L ear pain, no fevers or chills, no dizziness, no chest pain or SOB, no wheezing OV 11/16/2024: Here for her f/u apt, she is here with her mother, does well today, she has done her labs with Dr Gallo, he has since started her on Sanya Sheffield MD [address] [facility], [facility] [address], [place], [address], [facility] [employer] 11/16/2024 10:52:35 5 text/html . Patient is a 59-year-old female diabetic who returns for diabetic foot care. Patient states overall she is doing very well she denies any wounds or infection of the foot. Patient denies any right foot pain. Patient had previous fusion of the 1st MPJ secondary to bunion deformity and overall she is doing very well she is extremely happy with her progress. Patient denies any pain or swelling to the joint. Patient states that she continues have discomfort to the left bunion and would like to undergo surgery on the bunion as well. Patient states she has tried conservative offloading and anti-inflammatories which have not helped. Patient denies any other complaints. Makeda Maddox DPM [address] [facility] [address], [place], [address], [place] [facility] 12/14/2024 10:55:54 OBGyn Episode No OBEpisode recorded.
--- OUTSIDE RECORDS SUMMARY | 2025-01-24 09:18 | XMS_ITS | Encounter Summary ---
Author Organization [facility] [employer] [facility] , [facility] Address [address] [facility] [place] [address] Phone Care Team Providers Care Quality Control Manager Name Role Phone Sekou Sheffield MD Primary Care Provider [phone] Reason for Visit * Reason Comments Med Refill Encounter Details Date Type Department Care Team (Late st Contact Info) Description 11/08/2023 Refill [place] [facility], [facility] [address] [facility] [address] [place] [address] Kwesi Whiting DO [address] [facility] 1 [place] [address] Social History Tobacco Use Types [...] Description 02/13/2025 1:00 PM CDT Office Visit [place] [facility], [facility] [address] [place] [address] [address] [place] [address] Kwesi Whiting DO [address] [facility] 1 [place] [address] documented as of this encounter Visit Diagnoses Not on filedocumented in this encounter Care Teams Quality Control Manager Relationship Specialty Start Date End Date Sekou Sheffield MD [address] [facility], [address] [place] [id number] PCP - General Internal Medicine 07/06/22 documented as of this encounter
--- OUTSIDE RECORDS SUMMARY | 2025-01-24 09:19 | XMS_ITS | Patient Health Record ---
Author Organization [facility] Address [address] [facility] [address] [place] [address] Care Team Providers Care Fashion Photographer Name Role Phone Bryce Oden DO Primary Care Provider KM Gallardo Unavailable [phone] Allergies Allergen (clinical drug ingredient) Drug/Non Drug [...] Risk Notes Problem Counseling about tobacco use (327306894) Tobacco abuse counseling (Z71.6) Active confirmed Problem Post percutaneous transluminal coronary angioplasty (953793911) Coronary angioplasty status (Z98.61) Active confirmed Problem Dyslipidemia (097859590) Dyslipidemia (E78.5) Active confirmed Problem Obesity (454622421) Obesity (BMI 30.0-34.9) (E66.9) Active confirmed Problem Chest pain at rest (0544076) Chest pain at rest (R07.9) Active confirmed Problem Preinfarction syndrome (5032981) Unstable angina pectoris (I20.0) Active confirmed Problem Vascular insufficiency of intestine (21175567) Mesenteric ischemia (K55.9) Active confirmed Problem Abnormal results of cardiovascular function studies (296204845) Abnormal stress ECG (R94.39) Active confirmed Problem 766039367 Obesity determined by physical examination (E66.9) Active confirmed Problem Mesenteric artery stenosis (421997228) Mesenteric artery stenosis (K55.1) Active confirmed Problem Atherosclerotic heart disease of [place] coronary artery without angina pectoris (024628144699114) CAD in [place] artery (I25.10) Active confirmed Plan Of Treatment No Information Insurance Providers Payer Name Payer Address Payer Phone Subscriber Number Group Number Insured Name Patient Relationship to Insured Coverage Start Date Coverage End Date [employer] [address] [address] [address] [address] [place] [address] [id number] Stefany Bradyyn Self - patient is the insured [facility] [address] [place], [place] [id number] [facility] Elliscalin Naa poon Self - patient is the insured 6 0 [employer] [address] [address] [place] [address] [id number] thu Baezian Naa poon Self - patient is the insured 4 Medical (General) History Medical History History ICD Code HTN,COPD,DM,Obesity Surgical History Surgery Date(Month/Year) hernia gallbaldder
--- OUTSIDE RECORDS SUMMARY | 2025-01-24 09:19 | XMS_ITS | Patient Health Record ---
Author Organization [facility] Address [address] [place] [address] Reason For Referral No Information Medications Medication [...] 0.25 MCG TAKE 1 CAPSULE BY MO UT ONCE DAILY for 30 Active Problems Problem Type SNOMED Code ICD Code Onset Dates Problem Status W/U Status Risk Notes Problem Hyperglycemia due to type 2 diabetes mellitus (891730372673796) Type 2 diabetes mellitus with hyperglycemia (E11.65) Active confirmed Problem Secondary hyperparathyroidism (76023453) Secondary hyperparathyroid ism, not elsewhere classified (E21.1) Active confirmed Problem Vitamin D deficiency (31631853) Vitamin D deficiency, unspecified (E55.9) Active confirmed Problem Renal osteodystrophy (47331687) Renal osteodystrophy (N25.0) Active confirmed Problem Chronic kidney disease stage 3B (disorder) (447180193) Chronic kidney disease, stage 3b (N18.32) Active confirmed Problem Vascular insufficiency of intestine (66358633) Mesenteric ischemia (K55.9) Active confirmed Problem Mesenteric artery stenosis (901275607) Mesenteric artery stenosis (K55.1) Active confirmed Problem Obesity (326474064) Obesity determined by physical examination (E66.9) Active confirmed Plan Of Treatment No Information
--- OUTSIDE RECORDS SUMMARY | 2025-01-24 09:19 | XMS_ITS | Encounter Summary ---
Author Organization [facility] Address [address] [place] [address] Phone Care Team Providers Care Answering Service Agent Name Role Phone Sekou Sheffield MD Primary Care Provider [phone] Reason for Visit * Reason Onset Date Comments Med Refill 12/11/2024 Encounter Details Date Type Department Care Team (Late st Contact Info) Description 12/11/2024 Refill [facility] [address] [facility] [address] [place] [address] Cleo Figueredo CMA [address] [facility] [address] [place] [address] Social History Tobacco Use Types [...] Description 02/13/2025 1:00 PM CDT Office Visit [facility] [employer] [facility] [address] [facility] [address] [place] [address] Kwesi Whiting DO [address] [facility] [address] [place] [address] documented as of this encounter Visit Diagnoses Not on filedocumented in this encounter Care Teams Answering Service Agent Relationship Specialty Start Date End Date Sekou Sheffield MD [address] [facility], [address] [place] [address] PCP - General Internal Medicine 07/06/22 documented as of this encounter
--- OUTSIDE RECORDS SUMMARY | 2025-01-24 09:19 | XMS_ITS | Clinical Summary ---
Author Organization [facility] Lilia Patino Address [address] [place] [address] Care Team Providers Care Speech Correction Assistant Name Role Phone Sekou Sheffield MD Primary [...] Encounters Date Type Department Care Team Description 01/18/2025 External Device Data STL ABSTRACTION Provider, Abstract 01/17/2025 External Device Data STL ABSTRACTION Provider, Abstract 01/16/2025 External Device Data STL ABSTRACTION Provider, Abstract 01/02/2025 External Device Data STL ABSTRACTION Provider, [...] 10:25 AM CDT Height 160 cm (5' 3) 01/25/2024 10:25 AM CDT Body Mass Index 33.48 01/25/2024 10:25 AM CDT Plan of Treatment Upcoming Encounters Date Type Department Care Team (Late st Contact Info) Description 01/24/2025 10:00 AM CDT Office Visit [facility] - [place] [address] [facility] [address] [place] [address] Deep Roblero MD [address] [facility] [address] [place] [address] Health Maintenance Due Date Last [...] SCREENING 10/28/2022 10/28/2021 INFLUENZA VACCINE (#1) 2024 , 07/02/2022, 07/18/2021, Additional history exists DIABETES HBA1C Q 6 MONTHS 05/05/2024 11/03/2023 Medical Devices Implanted Type Area Concrete Mixing Plant Superintendent Device Identifier Shelf Expiration Date Model / Serial / Lot Angio-Seal Vip Closure Dev [id number] - [id number] Implanted:Qt y: 1 on 08/07/2020 by Yoshi Kovacs MD at [facility] Closure Device N/A: Groin [facility] [employer] 05/29/2021 [id number] / / [id number] Mesh Mesh [employer]-2017 Implanted:Qt y: 1 on 04/27/2018 by Yoshi Kovacs MD Stent Coronary [employer] [place] [id number] 03/30/2019 / / [id number] Description: RCA STATES ANOTHER STENT IN 2019 Procedures Procedure Name Priority Date/Time Associated Diagnosis Comments MAMMO SCREENING BILAT Routine 10/28/2021 from Last 3 Months or Most Recently Relevant to Health Maintenance Results * MAMMO SCREENING BILAT (10/28/2021) Anatomical Region Laterality Modality Breast Bilateral Mammography us Abstract Provider MAMMO ORDERABLES Final Result from Last 3 Months or Most Recently Relevant to Health Maintenance Insurance MEDICAID [place] Advance Directives For more information, please contact: [phone] * Full Code (Latest Code Status on File) Date Activated Date Inactivated Comments 08/07/2020 6:20 AM 08/07/2020 2:35 PM * Full Code Date Activated Date Inactivated Comments 12/20/2019 6:19 AM 12/20/2019 1:25 PM * Full Code Date Activated Date Inactivated Comments 04/27/2018 11:33 AM 04/27/2018 9:12 PM Care Teams Speech Correction Assistant Relationship Specialty Start Date End Date Sekou Sheffield MD PCP - General Internal Medicine 12/04/21
[2025-01-24 09:42] LABS: Basophils Absolute Auto 0.1 K/mm3 (0.0-0.1); Basophils Percent Auto 1.2 % (0.2-1.2); Eosinophils Absolute Auto 0.3 K/mm3 (0-0.3); Eosinophils Percent Auto 3.7 % (0-4.4); Hematocrit 42.1 % (37.0-47.0); Hemoglobin 13.7 g/dL (12.0-15.0); Immature Granulocyte Absolute 0.02 K/mm3 (0.00-0.031); Immature Granulocyte Percent A 0.3 % (0-0.5); Lymphocytes Absolute Auto 1.31 K/mm3 (0.9-3.2); Lymphocytes Percent Auto 19.3 % (18.3-44.2); Mean Corpuscular HGB Conc 32.5 g/dl (32-36); Mean Corpuscular Hemoglobin 31.1 pg (26-34); Mean Corpuscular Volume 95.7 fl (80-100); Monocytes Absolute Auto 0.4 K/mm3 (0.1-0.6); Monocytes Percent Auto 5.7 % (2.6-8.5); Neutrophils Absolute Auto 4.8 K/mm3 (1.3-6.7); Neutrophils Percent Auto 69.8 % (45.5-73.1); Platelet Count Result 181 k/mm3 (150-375); Red Cell Distribution Width 13.6 % (11.5-14.5); White Blood Count 6.8 K/mm3 (4.5-10.0)
[2025-01-24 09:46] LABS: Blood Urea Nitrogen 19 mg/dL (8-26); Carbon Dioxide 22 mmol/L (22-30); Chloride 104 mmol/L (98-109); Estimated Glomerular Filt Rate 36; Glucose 198 mg/dL (70-105); Ionized Calcium (POC) 1.23 mmol/L (1.11-1.31); Potassium 3.3 mmol/L (3.5-4.9); Sodium 140 mmol/L (138-146)
[2025-01-24 10:58] LABS: Alanine Aminotransferase 19 U/L (6-35); Albumin Level 3.9 g/dL (3.5-5.1); Alkaline Phosphatase 130 U/L (38-126); Anion Gap 9 mmol/L (4-12); Aspartate Amino Transferase 25 U/L (14-36); Bilirubin,Total 0.2 mg/dL (0.2-1.3); Blood Urea Nitrogen 19 mg/dL (7-17); Calcium 9.4 mg/dL (8.4-10.2); Carbon Dioxide 23 mmol/L (22-30); Chloride 107 mmol/L (98-107); Estimated Glomerular Filt Rate 37; Glucose 198 mg/dL (65-110); Potassium 3.3 mmol/L (3.4-5.0); Sodium 139 mmol/L (137-145)
== END 2025-01-24 09:15 | disposition home or self-care (01) ==
LOC: ANHLAB 09:16
PROVIDERS: Visit Provider Internal Medicine Hematology & Oncology
DX: D64.9 Anemia, unspecified (principal)
CPT/HCPCS: 36415; 80047; 80053; 85025

== ENCOUNTER 2025-03-22 09:47 | Outpatient (CLI) | payer MEDICARE, MEDICAID, SELFPAY ==
--- NOTE | ~2025-03-22 | CT_ITS ---
CLINICAL INDICATION: Nicotine dependence COMPARISON: 12/09/2021. TECHNIQUE: Multiple contiguous axial images of the chest was performed without the administration of intravenous contrast. This CT examination was performed utilizing dose reduction techniques. DLP: 150 mGy-cm FINDINGS/OBSERVATIONS: LUNG: The lungs are clear. 5 mm part solid nodule within the right middle lobe (axial series, image 42). 5 mm calcified nodule within the left upper lobe (axial series, image 66). 3.3 mm calcified nodule within the left upper lobe (axial series, image 65). 5 mm calcified nodule within the left upper lobe (axial series, image 47). Tree-in-bud opacification within the periphery of the right upper and middle lobes. The remainder of the lungs are clear HEART: The heart is of normal size, without pericardial effusion. MEDIASTINUM: No pathologically enlarged or morphologically suspicious lymph nodes are identified within the medias tinum, bilateral axilla, within the soft tissues of the anterior chest wall. SOFT TISSUES OF THE CHEST: Unremarkable. BONES OF THE CHEST: No acute fracture. No lytic or blastic lesions are identified. There are bridging endplate osteophytes at multiple levels in the thoracic spine, consistent with dif fuse idiopathic skeletal hyperostosis (DISH). UPPER ABDOMEN: The bilateral adrenal glands are unremarkable. IMPRESSION: Multiple calcified subcentimeter nodules detected bilaterally for which no further follow-up is neede d. 5 mm solid nodule within the right middle lobe. Lung-RADS category 3: Probably benign. Further evaluation is recommended with noncontrast low-dose ch est CT in 6 months. Reviewed, dictated and finalized at location A. IMPRESSION: Multiple calcified subcentimeter nodules detected bilaterally for which no furt her follow-up is needed. 5 mm solid nodule within the right middle lobe. Lung-RADS category 3: Probably benign. Further evaluation is recommended with n oncontrast low-dose chest CT in 6 months.
== END 2025-03-22 09:48 | disposition home or self-care (01) ==
LOC: MICIMG 09:49
PROVIDERS: PCP Internal Medicine; Visit Provider Internal Medicine Pulmonary Disease
DX: F17.218 Nicotine dependence, cigarettes, with other nicotine-induced disorders (principal); R91.8 Other nonspecific abnormal finding of lung field
CPT/HCPCS: 71271